=== PATIENT | female | born 1965 | race Caucasian/White ===

== ENCOUNTER 2017-03-27 12:36 | Inpatient (IN) ==
[2017-03-27 13:18] LABS: Bilirubin,Urine Negative (Negative); Blood,Urine Moderate (Negative); Clarity,Urine Turbid (Clear); Color,Urine Yellow (Yellow); Glucose,Urine (UA) Normal (Normal); Ketones,Urine Negative (Negative); Leukocyte Esterase,Urine Large (Negative); Nitrite,Urine Negative (Negative); Protein,Urine 30 mg/dL (Neg-Trace); Specific Gravity,Urine 1.015 (1.010-1.025); Urobilinogen,Urine Normal (Normal)
[2017-03-27 13:19] LABS: Bacteria,Urine Many per hpf (None-Few); Hyaline Casts,Urine Few per lpf (None-Few); Squamous Epithelial Cell,Urine Many per lpf (None-Few); WBC,Urine TNTC per hpf (0-3)
[2017-03-27 13:23] LABS: Basophils % 0.8 %; Immature Platelets 0.5 % (1.1-6.1)
[2017-03-27 13:25] LABS: Basophils # 0.1 K/mcL (0.0-0.2); Eosinophils # 0.4 K/mcL (0.0-0.6); Eosinophils % 4.2 %; Hematocrit 25.5 % (35.3-44.9); Immature Granulocytes % 1.7 % (0-4); Lymphocytes # 0.7 K/mcL (0.6-4.6); Lymphocytes % 8.8 %; Mean Corpuscular HGB Conc 27.8 g/dL (31.6-35.5); Mean Corpuscular Volume 104.1 fL (83.0-100.0); Mean Platelet Volume 8.8 fL (9.4-12.4); Monocytes # 0.5 K/mcL (0.0-1.3); Monocytes % 5.8 %; Neutrophils # 6.5 K/mcL (1.6-8.9); Nucleated Red Blood Cells 1.9 /100 WBC (0); Platelet Count 397 K/mcL (140-400); Red Blood Count 2.45 M/mcL (3.82-4.97); Red Cell Distribution Width 16.7 % (11.5-14.5); Segmented Neutrophils % 78.7 %
--- NOTE | 2017-03-27 13:31 | Emergency Department Note ---
Disposition Clinical Impression: Morbid obesity Chronic renal insufficiency Qualifiers: Chronic kidney disease stage: stage 5 Qualified Code(s): N18.5 - Chronic kidney disease, stage 5 [id number] kidney injury Qualifiers: Acute renal failure type: unspecified Chronic kidney disease stage: on chronic dialysis Qualified Code(s): N17.9 - Acute kidney failure, unspecified Disposition: Admitted As Inpatient Condition: Fair Time of Disposition: 15:02 General Adult HPI - General Chief complaint: ED General Medical Stated complaint: decreased kidney function Source: patient, family, EMS Mode of arrival: EMS Limitations: no limitations Nursing Notes Reviewed: Yes Vital Signs Reviewed: Yes - History of Present Illness HPI Narrative: 51-year-old female presents the ED on a vent and has a trach here for decreased urinary function and kidney function. Patient is a [facility] sent her here as they said that she needed emergent dialysis. Due to her kidney function not being functioning and also nonexistent. He said she has gained approximately 10 pounds in the past week. Patient states that she is not feeling well really she is very weak and not her normal self. He is not complaining of any chest pain or shortness of breath. She complain of any headaches or blurry vision. She is not complaining of back pain or neck pain. She is having normal bowel movements. She does not urinate very much and states she most likely normally needs a Isbell catheter when this happens. Patient states she is in stage V kidney failure. She is scheduled to have a fistula done towards the end of the month. Patient is having any other complaints including fever, nausea or vomiting. Pain Scale: 7 - Related Data Home Medications Medication Instructions Recorded Confirmed AcetaZOLAMIDE [Diamox] 250 mg PO DAILY 12/04/14 03/27/17 Acetaminophen [Tylenol] 500 mg PO Q6HR 12/04/14 03/27/17 Budesonide/Formoterol 160/4.5 2 puff IH BID 12/04/14 03/27/17 [Symbicort] Calcitriol [Rocaltrol] 0.25 mcg PO DAILY 12/04/14 03/27/17 Famotidine [Pepcid] 20 mg PO DAILY 12/04/14 03/27/17 Furosemide [Lasix] 80 mg PO BID 12/04/14 03/27/17 Gabapentin [Neurontin] 200 mg PO Q8H 12/04/14 03/27/17 Glimepiride [Amaryl] 4 mg PO DAILY 12/04/14 03/27/17 Ipratropium [ATROVENT Inhaler] 4 puff IH QID 12/04/14 03/27/17 Lactulose 30 gm PO DAILY 12/04/14 03/27/17 Levothyroxine [Synthroid] 200 mcg PO DAILY 12/04/14 03/27/17 Linagliptin [Tradjenta] 5 mg PO DAILY 12/04/14 03/27/17 Losartan [Cozaar] 25 mg PO DAILY 12/04/14 03/27/17 Nitroglycerin 0.4 mg SL AD PRN 12/04/14 03/27/17 OxyCODONE Immed Rel [Roxicodone 5 10 mg PO Q4HR PRN 12/04/14 03/27/17 MG] Pravastatin Sodium [Pravachol] 40 mg PO DAILY 12/04/14 03/27/17 Venlafaxine XR (24 HR) [Effexor XR] 112.5 mg PO DAILY 12/04/14 03/27/17 Zolpidem [Ambien] 10 mg PO HS 12/04/14 03/27/17 Artificial Tear Drops [Isopto 1 drop OP TID 12/25/14 03/27/17 Tears] Bisacodyl [Dulcolax] 10 mg PO DAILY PRN 12/25/14 03/27/17 Chlorhexidine Rinse 15 ml MM BID 12/25/14 03/27/17 Multivitamin/Iron/Folic Acid 1 each PO DAILY 12/25/14 03/27/17 [Centrum Complete Multivit Tab] guaiFENesin [Q-Tussin] 30 ml PO Q4H PRN 12/25/14 03/27/17 Allopurinol [Zyloprim 100 MG] 200 mg PO DAILY 03/27/17 03/27/17 Bethanechol Chloride [Urecholine] 25 mg PO Q8H 03/27/17 03/27/17 Calcifediol [Rayaldee] 30 mcg PO DAILY 03/27/17 03/27/17 Darbepoetin [Aranesp] 200 mcg SQ Q2W 03/27/17 03/27/17 Fenofibrate Nanocrystallized 160 mg PO DAILY 03/27/17 03/27/17 [Triglide] Insulin Glargine [Lantus] 20 unit SQ DAILY 03/27/17 03/27/17 Insulin LISPRO [HumaLOG] 5 - 12 units SQ TIDWM 03/27/17 03/27/17 Levothyroxine Sodium [Levoxyl] 25 mcg PO DAILY 03/27/17 03/27/17 Metoprolol Succinate 50 mg PO DAILY 03/27/17 03/27/17 Nitrofurantoin (BID) [Macrobid] 100 mg PO MOWEFR 03/27/17 03/27/17 Warfarin Sodium [Coumadin] 6 mg PO DAILY 03/27/17 03/27/17 Warfarin [Coumadin] 1 mg PO DAILY 03/27/17 03/27/17 Allergies Allergy/AdvReac Type Severity Reaction Status Date / Time albuterol Allergy Difficulty Verified 03/27/17 14:30 Breathing lisinopril Allergy Difficulty Verified 03/27/17 14:30 Breathing Sulfa (Sulfonamide Allergy Difficulty Verified 03/27/17 14:30 Antibiotics) Breathing Review of Systems: 10 point review of systems done and negative unless otherwise stated in history of present illness. All systems ED: reviewed and negative except as stated. Review of Systems: As Per HPI Past Medical History - Past Medical History Attestation: Yes The following information was validated with the patient. Medical history: Reports: diabetes, renal disease, GERD, hyperlipidemia, pulmonary embolus, thyroid disease, coronary artery disease, CHF, COPD Surgical history: Reports: other Psychiatric history: Reports: anxiety, depression [employer] history: Reports: dysfunctional uterine bleed - Social History Smoking Status: Never smoker Smokeless Tobacco Status: No Alcohol use: Reports: none Drug use: Reports: none Physical Exam - General Limitations: no limitations General appearance: alert - Head Head exam: atraumatic, normocephalic, normal inspection - Eye Eye exam: Present: normal appearance, PERRL, EOMI - ENT ENT exam: normal exam, normal oropharynx, mucous membranes moist, other ( Patient has tracheostomy in but is still verbal. There is no drainage or purulent drainage coming out of the tracheostomy.) - Neck Neck exam: Present: normal inspection, full ROM, trachea midline - Chest Chest inspection: Present: normal inspection, symmetric chest wall rise - Respiratory Respiratory exam: Present: normal lung sounds bilaterally - Cardiovascular Cardiovascular exam: Present: regular rate - Abdominal Exam Abdominal exam: Present: soft, Non-Tender. Absent: tenderness, distention, guarding, rebound, rigidity - Female Barrel Cutter present during exam: Yes (Techs doing the Isbell were chaperoning.) External Exam: Present: normal external exam (Examine patient while they placed a Isbell catheter and I was unable see any ulcers on the her bottom or near the labial region.) - Extremities Exam Extremities exam: Present: normal inspection, full ROM. Absent: tenderness, pedal edema - Expanded Lower Extremity Exam Neurovascular/Tendon exam: Present: normal capillary refill. Absent: pulse deficit, motor deficit, sensory deficit, tendon deficit - Back Exam Back exam: Present: normal inspection, full ROM. Absent: tenderness, CVA tenderness (R), CVA tenderness (L) - Neurological Exam Neurological exam: Present: alert, oriented X3 - Skin Skin exam: Present: warm, dry, intact, normal color Course Course Narrative: 51-year-old female presents to the emergency department with decreased kidney function. She has a tracheostomy. We will get chest x-ray as well as basic labs including CBC, BMP, lactate as well as urinalysis. We will place a Isbell due to patient's immobility and decreased urine functions and also can measure it. Patient is okay with this plan. Vital Signs Temperature 98.3 F 03/27/17 12:40 Pulse Rate 128 03/27/17 12:40 Respiratory Rate 20 03/27/17 12:40 Blood Pressure 136/80 03/27/17 12:40 O2 Sat by Pulse Oximetry 96 03/27/17 12:40 Temperature 98.3 F 03/27/17 12:40 Pulse Rate 102 03/27/17 16:04 Respiratory Rate 18 03/27/17 16:04 Blood Pressure 98/64 03/27/17 16:04 O2 Sat by Pulse Oximetry 94 03/27/17 16:04 Oxygen Delivery Oxygen Delivery Ventilator Medical Decision Making - [facility] Narrative Medical decision making narrative: 51-year-old female presents to the ED complaining of possible kidney failure she came from a [facility] she does have a tracheostomy and is on a fentanyl time. This is chronic for her. She does have chronic kidney disease she sees Dr. Leyva is her data keyer. They said that she has increased weighing approximately 10 pounds over the last week and has not been producing much urine. This is abnormal for her. Today we placed a Isbell due to patient's obesity and her unable to get out of bed and also so we can measure her urine output. We got basic labs BMP showed an elevation in her creatinine as well as slight anemia. The anemia is right around her normal at 7.1 hemoglobin. She did have decreased GFR. Her B1 was elevated as well. Patient's chest x-ray did show mild pleurodynia but she is not complaining of any shortness of breath this time. This is not the main issue. I spoke with the on-call data keyer for Dr. Leyva's group and it was Dr. Jaffe who agreed the patient does need to be dialyzed they said they will do it tomorrow. And asked to hold any antiplatelets. Including Plavix or aspirin if she is on them. This time I spoke with the hospitalist Dr. Freitas who agreed to admit the patient to their service. Patient is admitted in stable condition. Chest X-Ray 03/27/17 12:40 IMPRESSION: Mild pulmonary edema. D/ / Adam Casanova MD / Adam Casanova MD Interpreting Provider: Adam Casanova MD - Medical Records Medical records reviewed: Yes I reviewed the patient's medical records. - Lab Data Lab results reviewed: Yes I reviewed the patient's lab results. Result diagrams: 03/27/17 13:15 03/27/17 13:15 Lab Results 03/27/17 03/27/17 03/27/17 Range/Units 13:11 13:15 13:15 WBC 8.3 (4.3-11.1) K/mcL RBC 2.45 L (3.82-4.97) M/mcL Hgb 7.1 L (11.5-15.4) g/dL Hct 25.5 L (35.3-44.9) % MCV 104.1 H (83.0-100.0) fL MCH 29.0 (28.0-33.3) pg MCHC 27.8 L (31.6-35.5) g/dL RDW 16.7 H (11.5-14.5) % Plt Count 397 (140-400) K/mcL MPV 8.8 L (9.4-12.4) fL Immature Gran % 1.7 (0-4) % Seg Neutrophils % 78.7 % Lymphocytes % 8.8 % Monocytes % 5.8 % Eosinophils % 4.2 % Basophils % 0.8 % Neutrophils # 6.5 (1.6-8.9) K/mcL Lymphocytes # 0.7 (0.6-4.6) K/mcL Monocytes # 0.5 (0.0-1.3) K/mcL Eosinophils # 0.4 (0.0-0.6) K/mcL Basophils # 0.1 (0.0-0.2) K/mcL Nucleated RBCs/100 WBC 1.9 H (0) /100 WBC Platelet Estimate Increased H (Normal) Immature Plt Fraction 0.5 L (1.1-6.1) % Hypochromasia Present A (Not Present) Anisocytosis 1+ A (Not Present) Microcytosis Present A (Not Present) Sodium 138 (136-145) mEq/L Potassium 5.8 H (3.5-4.5) mEq/L Chloride 102 (98-109) mEq/L Carbon Dioxide 22 (19-29) mEq/L BUN 126 H (7-20) mg/dL Creatinine 5.60 H (0.57-1.11) mg/dL Est GFR ( Amer) 10 L (> 60) Est GFR (Non-Af Amer) 8 L (> 60) BUN/Creatinine Ratio 23 (6-26) Glucose 207 H (70-99) mg/dL Calculated Osmolality 333 H (280-300) Lactic Acid (0.5-2.2) mmol/L Calcium 8.3 L (8.6-10.8) mg/dL Troponin I (0-0.03) ng/mL Urine Color Yellow (Yellow) Urine Clarity Turbid A (Clear) Urine pH 6.0 (5.0-8.0) pH Units Ur Specific [place] 1.015 (1.010-1.025) Urine Protein 30 H (Neg-Trace) mg/dL Urine Glucose (UA) Normal (Normal) mg/dL Urine Ketones Negative (Negative) mg/dL Urine Blood Moderate H (Negative) Urine Nitrite Negative (Negative) Urine Bilirubin Negative (Negative) Urine Urobilinogen Normal (Normal) mg/dL Ur Leukocyte Esterase Large H (Negative) Urine Microscopic RBC 3-5 H (0-3) per hpf Urine Microscopic WBC TNTC H (0-3) per hpf Ur Squamous Epith Cells Many H (None-Few) per lpf Urine Bacteria Many H (None-Few) per hpf Hyaline Casts Few (None-Few) per lpf Ur Culture Indicated? YES A (NO) 03/27/17 03/27/17 Range/Units 13:15 13:15 WBC (4.3-11.1) K/mcL RBC (3.82-4.97) M/mcL Hgb (11.5-15.4) g/dL Hct (35.3-44.9) % MCV (83.0-100.0) fL MCH (28.0-33.3) pg MCHC (31.6-35.5) g/dL RDW (11.5-14.5) % Plt Count (140-400) K/mcL MPV (9.4-12.4) fL Immature Gran % (0-4) % Seg Neutrophils % % Lymphocytes % % Monocytes % % Eosinophils % % Basophils % % Neutrophils # (1.6-8.9) K/mcL Lymphocytes # (0.6-4.6) K/mcL Monocytes # (0.0-1.3) K/mcL Eosinophils # (0.0-0.6) K/mcL Basophils # (0.0-0.2) K/mcL Nucleated RBCs/100 WBC (0) /100 WBC Platelet Estimate (Normal) Immature Plt Fraction (1.1-6.1) % Hypochromasia (Not Present) Anisocytosis (Not Present) Microcytosis (Not Present) Sodium (136-145) mEq/L Potassium (3.5-4.5) mEq/L Chloride (98-109) mEq/L Carbon Dioxide (19-29) mEq/L BUN (7-20) mg/dL Creatinine (0.57-1.11) mg/dL Est GFR ( Amer) (> 60) Est GFR (Non-Af Amer) (> 60) BUN/Creatinine Ratio (6-26) Glucose (70-99) mg/dL Calculated Osmolality (280-300) Lactic Acid 0.8 (0.5-2.2) mmol/L Calcium (8.6-10.8) mg/dL Troponin I 0.01 (0-0.03) ng/mL Urine Color (Yellow) Urine Clarity (Clear) Urine pH (5.0-8.0) pH Units Ur Specific [place] (1.010-1.025) Urine Protein (Neg-Trace) mg/dL Urine Glucose (UA) (Normal) mg/dL Urine Ketones (Negative) mg/dL Urine Blood (Negative) Urine Nitrite (Negative) Urine Bilirubin (Negative) Urine Urobilinogen (Normal) mg/dL Ur Leukocyte Esterase (Negative) Urine Microscopic RBC (0-3) per hpf Urine Microscopic WBC (0-3) per hpf Ur Squamous Epith Cells (None-Few) per lpf Urine Bacteria (None-Few) per hpf Hyaline Casts (None-Few) per lpf Ur Culture Indicated? (NO) - Radiology Data Radiology results reviewed: Yes I reviewed the patient's radiology results. - EKG Data EKG #1 EKG attestation: Yes I reviewed and interpreted this EKG. EKG results narrative: EKG done at 1254 view by myself and attending shows atrial fibrillation at a rate of 1:15, QRS 87, QTC 374 with a normal axis. No acute ST changes. This is irregular rhythm. No acute T-wave abnormalities, no signs of any heart block , hypertrophy or heart strain, no signs of WPW/Brugada syndrome. This EKG is changed from previous EKG done 12/25/14 which does not show atrial fibrillation shows normal sinus rhythm with no acute changes. Attestation Statement - Attestation Attestation: I, Raj Hough, examined this patient and my medical decision-making was reviewed with the LIBRARY ASSOCIATE/PA/Advanced Practice Nurse/Resident Physician. I agree with the documented findings, disposition and treatment plan as described except to the extent set forth below. Patient sent from the extended care facility for further evaluation of acute renal failure. State patient has had significant increase in weight over the past week laboratory evaluation shows a significantly decreased renal functioning. Patient has apparently been mildly confused at home is able to answer questions well in the emergency department. Patient has possible urinary tract infection on urinalysis however we will wait for culture results before prescribing antibiotics. Resident spoke with the data keyer product support consultant. Patient will be admitted to the hospital for further care and evaluation and likely treatment with dialysis.
[2017-03-27 13:34] LABS: Hemoglobin 7.1 g/dL (11.5-15.4)
[2017-03-27 13:45] LABS: Calcium 8.3 mg/dL (8.6-10.8); Potassium 5.8 mEq/L (3.5-4.5)
[2017-03-27 13:52] LABS: Anisocytosis 1+ (Not Present); Hypochromasia Present (Not Present); Microcytosis Present (Not Present); Platelet Estimate Increased (Normal)
[2017-03-27] MEDS ORDERED: FLUARIX QUAD 2017-18 36MOS UP/PF 0.5 ML SYRINGE IM ONE (16:32)
[2017-03-27] MEDS ORDERED: Naloxone 0.4 MG/ML INJ IVP PRN (16:39)
[2017-03-27] MEDS ORDERED: Nitroglycerin 0.4 MG TAB.SUBL SL PRN (16:46)
[2017-03-27] MEDS ORDERED: Dextrose Gel 15 GM PO PRN ×2 (16:59)
[2017-03-27] MEDS ORDERED: *HR* Dextrose 50 % in Water (Syg) 50 ML SYRINGE IVP PRN (16:59)
[2017-03-27] MEDS ORDERED: D5% in Water 1,000 ML IVC PRN (16:59)
--- NOTE | 2017-03-27 17:28 | Internal Med History&Physical ---
Date of Encounter: 03/27/17 Time of Encounter: 17:25 Assessment and Plan (1) Qvqka-[id number]-[id number] kidney injury Current visit: Yes Status: Acute Patient has a history of C Lakia stage V she is being worked up for AV shunt placement- he has been experiencing weight gain as well as decreased urinary output. Lab work indicating hyperkalemia 5.8 today and creatinine of 5.6. Nephrology has been consultation per ER physician she will undergo dialysis in the a.m. Monitor intake output daily weights Avoid nephrotoxins Renal diet Monitor electrolytes Qualifiers: Acute renal failure type: unspecified Chronic kidney disease stage: on chronic dialysis Qualified Code(s): N17.9 - Acute kidney failure, unspecified ; N18.9 - Chronic kidney disease, unspecified; N18.9 - Chronic kidney disease, unspecified; Z99.2 - Dependence on renal dialysis; Z99.2 - Dependence on renal dialysis; Z99.2 - Dependence on renal dialysis; Z99.2 - Dependence on renal dialysis (2) Diabetes mellitus Current visit: No Status: Acute Accu-Cheks before meals at bedtime with sliding scale insulin will give half of basal tonight due to patient will be nothing by mouth Diabetic diet Qualifiers: Diabetes mellitus type: type 2 Diabetes mellitus complication status: with kidney complications Diabetes mellitus complication detail: with chronic kidney disease Diabetes mellitus 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 insulin use: with care home use Chronic kidney disease stage: stage 5, not on chronic dialysis Qualified Code( s): E11.22 - Type 2 diabetes mellitus with diabetic chronic kidney disease; N18.5 - Chronic kidney disease, stage 5; N18.5 - Chronic kidney disease, stage 5 ; N18.5 - Chronic kidney disease, stage 5; N18.5 - Chronic kidney disease, stage 5; Z79.4 - buttermaker helper (current) use of insulin; Z79.4 - group home (current ) use of insulin; Z79.4 - group home (current) use of insulin; Z79.4 - group home (current) use of insulin (3) COPD (chronic obstructive pulmonary disease) Current visit: No Status: Acute 1 we will continue with bronchodilators patient has tracheostomy and is ventilator dependent we will continue Qualifiers: COPD type: unspecified COPD Qualified Code(s): J44.9 - Chronic obstructive pulmonary disease, unspecified (4) Supratherapeutic INR Current visit: Yes Status: Acute Patient is on Coumadin for chronic atrial flutter INR today is 4.83 we will hold Coumadin tonight and give vitamin K 5 mg by mouth once (5) Atrial flutter, chronic Current visit: Yes Status: Acute Patient states she has chronic history of irregular heartbeat and on anticoagulation for this. We will continue with metoprolol for rate control-we will hold Coumadin tonight and give vitamin K 1 Continuous cardiac monitoring Continue to monitor INR daily (6) Hyperkalemia Current visit: Yes Status: Acute Patient's potassium was 5.8 secondary to AK I -there are no T-wave changes we will continue cardiac monitoring Continue to monitor potassium (7) DVT prophylaxis Current visit: No Status: Acute Patient is on Coumadin-foot pumps Internal Medicine - H&P: HPI Chief complaint: weakness Admitted From: Emergency Dept Plans for Post Hospital Care: Transfer Shelter Facility History of present illness: Ms. Denson is a 51 year old female past medical history of orbit obesity diabetes CKD V GERD hyperlipidemia thyroid disease coronary disease congestive heart failure COPD chronic tracheostomy and ventilator dependent, hypertension . Patient resides in an [facility]. Patient has not been feeling well she has been weak his gained approximately 10 pounds in the past week. She is being followed by nephrology and is scheduled to have a fistula completed toward the end of the month. She denies any shortness of breath fever or chills chest pain nausea or vomiting. She also has been experiencing decrease in urinary output however no other urinary symptoms. Upon arrival to the ER lab work did reveal hyperkalemia with potassium of 5.8 hemoglobin 7.1 which appears to be around her baseline chest x-ray did show some mild pulmonary edema. ER physician did speak with nephrology patient will be dialyzed in the a.m. Presently the patient is sitting up in bed, requesting something to eat she denies any chest pain or shortness of breath this time and does not appear to be in any respiratory distress. Past Med Surg Social Fam HX - Past Medical History Medical history: diabetes, renal disease, GERD, hyperlipidemia, pulmonary embolus, thyroid disease, coronary artery disease, CHF, COPD Psychiatric history: anxiety, depression - Past Surgical History Surgical History: other - Social History Smoking Status: Never smoker Smokeless Tobacco Status: No Alcohol use: none Drug use: none - Family History Mother Living Status: Still Living Hx Family Cardiac Disorders: Yes (Hypertension) Hx Family Endocrine Disorder: Yes (Diabetes) Internal Medicine - H&P: Meds AcetaZOLAMIDE [Diamox] 250 mg PO DAILY 12/04/14 [History] Acetaminophen [Tylenol] 500 mg PO Q6HR 12/04/14 [History] Budesonide/Formoterol 160/4.5 [Symbicort] 2 puff IH BID 12/04/14 [History] Calcitriol [Rocaltrol] 0.25 mcg PO DAILY 12/04/14 [History] Famotidine [Pepcid] 20 mg PO DAILY 12/04/14 [History] Furosemide [Lasix] 80 mg PO BID 12/04/14 [History] Gabapentin [Neurontin] 200 mg PO Q8H 12/04/14 [History] Glimepiride [Amaryl] 4 mg PO DAILY 12/04/14 [History] Ipratropium [ATROVENT Inhaler] 4 puff IH QID 12/04/14 [History] Lactulose 30 gm PO DAILY 12/04/14 [History] Levothyroxine [Synthroid] 200 mcg PO DAILY 12/04/14 [History] Linagliptin [Tradjenta] 5 mg PO DAILY 12/04/14 [History] Losartan [Cozaar] 25 mg PO DAILY 12/04/14 [History] Nitroglycerin 0.4 mg SL AD PRN 12/04/14 [History] OxyCODONE Immed Rel [Roxicodone 5 MG] 10 mg PO Q4HR PRN 12/04/14 [History] Pravastatin Sodium [Pravachol] 40 mg PO DAILY 12/04/14 [History] Venlafaxine XR (24 HR) [Effexor XR] 112.5 mg PO DAILY 12/04/14 [History] Zolpidem [Ambien] 10 mg PO HS 12/04/14 [History] Artificial Tear Drops [Isopto Tears] 1 drop OP TID 12/25/14 [History] Bisacodyl [Dulcolax] 10 mg PO DAILY PRN 12/25/14 [History] Chlorhexidine Rinse 15 ml MM BID 12/25/14 [History] Multivitamin/Iron/Folic Acid [Centrum Complete Multivit Tab] 1 each PO DAILY 12/31 [History] guaiFENesin [Q-Tussin] 30 ml PO Q4H PRN 12/25/14 [History] Allopurinol [Zyloprim 100 MG] 200 mg PO DAILY 03/27/17 [History] Bethanechol Chloride [Urecholine] 25 mg PO Q8H 03/27/17 [History] Calcifediol [Rayaldee] 30 mcg PO DAILY 03/27/17 [History] Darbepoetin [Aranesp] 200 mcg SQ Q2W 03/27/17 [History] Fenofibrate Nanocrystallized [Triglide] 160 mg PO DAILY 03/27/17 [History] Insulin Glargine [Lantus] 20 unit SQ DAILY 03/27/17 [History] Insulin LISPRO [HumaLOG] 5 - 12 units SQ TIDWM 03/27/17 [History] Levothyroxine Sodium [Levoxyl] 25 mcg PO DAILY 03/27/17 [History] Metoprolol Succinate 50 mg PO DAILY 03/27/17 [History] Nitrofurantoin (BID) [Macrobid] 100 mg PO MOWEFR 03/27/17 [History] Warfarin Sodium [Coumadin] 6 mg PO DAILY 03/27/17 [History] Warfarin [Coumadin] 1 mg PO DAILY 03/27/17 [History] 3 Allergy/AdvReac Type Severity Reaction Status Date / Time albuterol Allergy Difficulty Verified 03/27/17 14:30 Breathing lisinopril Allergy Difficulty Verified 03/27/17 14:30 Breathing Sulfa (Sulfonamide Allergy Difficulty Verified 03/27/17 14:30 Antibiotics) Breathing All Systems PM: A 10-system review of systems was performed and is negative for pertinent findings except as documented above in the HPI. - Constitutional Constitutional: no chills, no fever(s), no night sweats - EENT Eyes: no change in vision, no discharge, no pain, no photophobia Ears: no ear discharge, no ear pain, no tinnitus Nose, mouth and throat: no dysphagia, no nasal discharge, no neck pain, no sore throat - Cardiovascular Cardiovascular ROS IM: no chest pain, no diaphoresis, no dyspnea, no lightheadedness, no palpitations, no syncope - Respiratory Respiratory: no cough, no dyspnea, no wheezing, no excessive phlegm production - Gastrointestinal Gastrointestinal: abdominal pain - Genitourinary Genitourinary: no change in urinary stream, no dysuria, no flank pain, no hematuria - Musculoskeletal Musculoskeletal ROS IM: no numbness, no tingling - Integumentary Integumentary IM: no rash, no unusual bruising - Neurological Neurological ROS: no confusion, no convulsions, no focal weakness, no numbness, no tingling, no tremor(s) - Hematologic/Lymphatic Hematologic/Lymphatic: no easy bruising - Constitutional Vitals: Temp Pulse Resp BP Pulse Ox 98.3 F 102 18 98/64 94 03/27/17 12:40 03/27/17 16:04 03/27/17 16:04 03/27/17 16:04 03/27/17 16:04 General appearance: Present: A&O X 3, answers questions appropriately - Head Head exam: Present: atraumatic, normocephalic - Eye Eye exam: Present: PERRL, conjuntiva pink, sclera anicteric Pupils: Present: PERRL - Neck Neck exam general surgery: Present: supple, trachea midline. Absent: lymphadenopathy - Respiratory Respiratory exam: Present: rhonchi. Absent: accessory muscle use, rales, wheezes - Cardiovascular Cardiovascular exam: Present: distant heart sounds, irregular rhythm, +S1, +S2. Absent: diastolic murmur, gallop, rubs, systolic murmur - GI/Abdominal GI/Abdominal exam: Present: normal bowel sounds, soft, no peritoneal signs. Absent: distended, tenderness - Extremities Exam Extremities exam: Present: pedal edema, warm, radial pulses palpable and symmetrical. Absent: calf tenderness, cyanotic - Neurological Exam Neurological exam: Present: CN II-XII intact, oriented X3, no focal deficits. Absent: pronater drift, facial droop, speech deficit - Skin Skin exam: Present: dry, intact Internal Med - H&P Results - Labs CBC & Chem 7: 03/27/17 13:15 03/27/17 13:15 - Impressions Atrial flutter - Diagnostic Studies Other Images Additional comments: Chest X-Ray 03/27/17 12:40 IMPRESSION: Mild pulmonary edema. D/ / Adam Casanova MD / Adam Casanova MD Interpreting Provider: Adam Casanova MD
[2017-03-27 17:44] LABS: Activated Partial Thrombo Time 63.5 Seconds (26.0-36.0)
[2017-03-27 17:48] LABS: INR 4.8; Prothrombin Time 53.9 Seconds (9.4-12.1)
[2017-03-27] MEDS: Gabapentin 100 MG CAPSULE PO SCH ×2 (18:04→23:50)
[2017-03-27] MEDS: Insulin DETEMIR 100 UNIT/ML X5UNITS SQ SCH (18:04)
[2017-03-27] MEDS ORDERED: *HR* Phytonadione 5 MG TABLET PO ONE (18:26)
[2017-03-27] MEDS: Ipratropium 1 PUFF INHALER IH SCH ×2 (18:33→22:26)
[2017-03-27] MEDS: Insulin LISPRO 300 UNITS/3 ML VIAL SQ SCH (20:33)
[2017-03-27] MEDS: Chlorhexidine Rinse 15 ML MOUTHWASH MM SCH (20:38)
[2017-03-27] MEDS: Furosemide 40 MG TABLET PO SCH (20:38)
[2017-03-27] MEDS: Artificial Tears SOLN 15 ML BOTTLE OP SCH (20:39)
[2017-03-27] MEDS: Budesonide/Formoterol 160/4.5 MDI IH SCH (22:27)
[2017-03-28] MEDS: Ipratropium 1 PUFF INHALER IH SCH ×4 (04:00→22:03)
[2017-03-28 04:02] LABS: Hematocrit 22.2 % (35.3-44.9)
[2017-03-28 04:04] LABS: Basophils % 0.5 %; Eosinophils # 0.3 K/mcL (0.0-0.6); Eosinophils % 4.2 %; Hemoglobin 6.3 g/dL (11.5-15.4); Immature Granulocytes % 1.7 % (0-4); Lymphocytes # 0.6 K/mcL (0.6-4.6); Lymphocytes % 7.9 %; Mean Corpuscular HGB Conc 28.4 g/dL (31.6-35.5); Mean Corpuscular Hemoglobin 29.2 pg (28.0-33.3); Mean Corpuscular Volume 102.8 fL (83.0-100.0); Mean Platelet Volume 8.6 fL (9.4-12.4); Monocytes # 0.5 K/mcL (0.0-1.3); Monocytes % 5.9 %; Neutrophils # 6.4 K/mcL (1.6-8.9); Nucleated Red Blood Cells 2.4 /100 WBC (0); Platelet Count 290 K/mcL (140-400); Red Blood Count 2.16 M/mcL (3.82-4.97); Red Cell Distribution Width 16.3 % (11.5-14.5); Segmented Neutrophils % 79.8 %
[2017-03-28 04:13] LABS: INR 4.5; Prothrombin Time 49.9 Seconds (9.4-12.1)
[2017-03-28 04:19] LABS: Hypochromasia Present (Not Present); Platelet Estimate Normal (Normal)
[2017-03-28 04:20] LABS: Anisocytosis 1+ (Not Present); Polychromasia 1+ (Not Present)
[2017-03-28 04:25] LABS: Calcium 7.2 mg/dL (8.6-10.8)
[2017-03-28] MEDS ORDERED: *HR* Digoxin 0.5 MG/2 ML AMPUL IVP ONE (04:54)
[2017-03-28] MEDS: Levothyroxine 25 MCG TABLET PO SCH (08:01)
[2017-03-28] MEDS: Gabapentin 100 MG CAPSULE PO SCH ×2 (08:01→21:33)
[2017-03-28] MEDS: Fenofibrate 54 MG TABLET PO SCH (08:01)
[2017-03-28] MEDS: Famotidine 20 MG TABLET PO SCH (08:01)
[2017-03-28] MEDS: Chlorhexidine Rinse 15 ML MOUTHWASH MM SCH ×2 (08:01→21:33)
[2017-03-28] MEDS: Artificial Tears SOLN 15 ML BOTTLE OP SCH ×3 (08:02→21:32)
[2017-03-28] MEDS: Venlafaxine XR (24 HR) 37.5 MG CAP.ER.24H PO SCH (08:02)
[2017-03-28] MEDS: acetaZOLAMIDE 250 MG TABLET PO SCH (08:02)
[2017-03-28] MEDS: Acetaminophen 325 MG TABLET PO PRN ×2 (08:05→23:31)
[2017-03-28] MEDS: Insulin LISPRO 300 UNITS/3 ML VIAL SQ SCH ×4 (08:05→21:33)
[2017-03-28] MEDS: Furosemide 40 MG TABLET PO SCH ×2 (08:32→16:40)
[2017-03-28] MEDS: Metoprolol XL (24 HR) Succ 50 MG TAB.ER.24H PO SCH (08:32)
[2017-03-28] MEDS ORDERED: CALCIFEDIOL 30 MCG PO SCH (09:00)
[2017-03-28] MEDS ORDERED: Lactulose Oral Soln 20 GM/30 ML UDC PO SCH (09:00)
--- NOTE | 2017-03-28 10:54 | Internal Med Progress Note ---
<Nhung Tyson - Last Filed: 03/28/17 17:09> Date of Encounter: 03/28/17 Time of Encounter: 10:52 - Assessment and plan (1) Cvcfh-eh-igflyds kidney injury Current Visit: Yes Status: Acute Assessment and plan: Cr today 6.24, baseline around 3.8 Etiology unclear at this time, but patient has progressed to ESRD was scheduled to have AV fistula done outpatient Plan: 2 units FFP re check INR hold warfarin will consult IR tomorrow for placement of tem dialysis catheter Qualifiers: Acute renal failure type: unspecified Chronic kidney disease stage: on chronic dialysis Qualified Code(s): N17.9 - Acute kidney failure, unspecified ; N18.5 - Chronic kidney disease, stage 5; N18.5 - Chronic kidney disease, stage 5; N18.5 - Chronic kidney disease, stage 5; N18.5 - Chronic kidney disease , stage 5 (2) Supratherapeutic INR Current Visit: Yes Status: Acute Assessment and plan: INR today 4.5 Plan: hold coumadin 2 units FFP ordered. will re check INR and decrease in order to get temp dialysis catheter for dialysis tomorrow. (3) UTI (urinary tract infection) Current Visit: Yes Status: Acute Assessment and plan: urine culture positive for gram negative rods Plan: continue rocephin, day 1 Qualifiers: Urinary tract infection type: site unspecified Hematuria presence: without hematuria Qualified Code(s): N39.0 - Urinary tract infection, site not specified (4) Diabetes mellitus Current Visit: No Status: Acute Assessment and plan: continue basal with medium dose sliding scale/ACHS accuchecks. 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 insulin use: with custodial use Chronic kidney disease stage: stage 5, not on chronic dialysis Qualified Code( s): E11.22 - Type 2 diabetes mellitus with diabetic chronic kidney disease; N18.5 - Chronic kidney disease, stage 5; N18.5 - Chronic kidney disease, stage 5 ; N18.5 - Chronic kidney disease, stage 5; N18.5 - Chronic kidney disease, stage 5; Z79.4 - skilled nursing (current) use of insulin; Z79.4 - watermelon inspector (current ) use of insulin; Z79.4 - watermelon inspector (current) use of insulin; Z79.4 - skilled nursing (current) use of insulin (5) Anemia Current Visit: No Status: Acute Assessment and plan: Hg today 6.3 Plan: two units packed RBCs ordered will recheck H/H afterwards. Qualifiers: Anemia type: due to chronic kidney disease Chronic kidney disease stage: unspecified stage Qualified Code(s): N18.9 - Chronic kidney disease, unspecified; D63.1 - Anemia in chronic kidney disease; D63.1 - Anemia in chronic kidney disease (6) COPD (chronic obstructive pulmonary disease) Current Visit: No Status: Acute Assessment and plan: not in exacerbation. continue home meds. Qualifiers: COPD type: unspecified COPD Qualified Code(s): J44.9 - Chronic obstructive pulmonary disease, unspecified (7) Atrial flutter, chronic Current Visit: Yes Status: Acute Assessment and plan: continue metoprolol for rate control, with IV metoprolol PRN hold coumadin for supratherapeutic INR (8) Hyperkalemia Current Visit: Yes Status: Acute Assessment and plan: potassium today was 6 Plan: since patient did not receive HD today, will give 30mg kayexalate, will re check potassium after Bowel movement. if needed, will give more kayexalate to bring down potassium. (9) DVT prophylaxis Current Visit: No Status: Acute Assessment and plan: on coumadin at home-on hold for supratherapeutic INR - Subjective Interval history: 51F evaluated at bedside. patient was leaning over the bed at the foot of the bed. she states she does this because it helps her feel better. patient denies nausea, vomiting, diarrhea, chills, chest pain, shortness of breath. she admits to fevers. she denies any further problems today. - Constitutional Vitals: Temp Pulse Resp BP Pulse Ox 100.3 F H 132 19 101/40 98 03/28/17 07:12 03/28/17 07:12 03/28/17 07:12 03/28/17 07:12 03/28/17 05:29 General appearance: Present: A&O X 3, morbidly obese, pleasant, no acute distress, answers questions appropriately - Head Head exam: Present: atraumatic, normocephalic - Neck Neck exam general surgery: Present: supple Additional comments: tracheostomy in place - Respiratory Respiratory exam: Present: decreased breath sounds - Cardiovascular Cardiovascular exam: Present: RRR, +S1, +S2 - GI/Abdominal GI/Abdominal exam: Present: distended Additional comments: obese, minimal bowel sounds present. - Extremities Exam Additional comments: +2 bilateral lower extremity pitting edema. - Neurological Exam Neurological exam: Present: alert, oriented X3, no focal deficits - Psychiatric Psychiatric exam: Present: normal affect, normal mood Internal Medicine: Result - Labs CBC & Chem 7: 03/28/17 03:59 03/28/17 03:59 Labs: Short CBC 03/28/17 Range/Units 03:59 WBC 8.0 (4.3-11.1) K/mcL Hgb 6.3 L (11.5-15.4) g/dL Hct 22.2 L (35.3-44.9) % Plt Count 290 (140-400) K/mcL Neutrophils # 6.4 (1.6-8.9) K/mcL BMP 03/28/17 03:59 Sodium 138 Potassium 6.0 H Chloride 103 Carbon Dioxide 21 BUN 141 H Creatinine 6.24 H Glucose 144 H Calcium 7.2 L - ABG Interpretation ABG results: PT/INR, D-dimer PT 49.9 Seconds (9.4-12.1) H* 03/28/17 03:59 Consult Discharge Plan - Plan Referrals: Ender Hodge MD [Primary Care Provider] - <Sancho Rubio - Last Filed: 03/28/17 17:40> Date of Encounter: 03/28/17 - Assessment and plan (1) Hyperkalemia Current Visit: Yes Status: Acute (2) Rpyhk-nu-obqxaxx kidney injury Current Visit: Yes Status: Acute Qualifiers: Acute renal failure type: unspecified Chronic kidney disease stage: stage 5 , not on chronic dialysis Qualified Code(s): N17.9 - Acute kidney failure, unspecified; N18.5 - Chronic kidney disease, stage 5; N18.5 - Chronic kidney disease, stage 5; N18.5 - Chronic kidney disease, stage 5; N18.5 - Chronic kidney disease, stage 5 (3) Supratherapeutic INR Current Visit: Yes Status: Acute (4) UTI (urinary tract infection) Current Visit: Yes Status: Acute Qualifiers: Urinary tract infection type: acute cystitis Hematuria presence: without hematuria Qualified Code(s): N30.00 - Acute cystitis without hematuria (5) Anemia Current Visit: No Status: Acute Qualifiers: Anemia type: due to chronic kidney disease Chronic kidney disease stage: stage 5, not on chronic dialysis Qualified Code(s): N18.5 - Chronic kidney disease, stage 5; D63.1 - Anemia in chronic kidney disease; D63.1 - Anemia in chronic kidney disease (6) COPD (chronic obstructive pulmonary disease) Current Visit: No Status: Acute Qualifiers: COPD type: emphysema Emphysema type: other Qualified Code(s): J43.8 - Other emphysema (7) Diabetes mellitus Current Visit: No Status: Acute Qualifiers: Diabetes mellitus type: type 2 Diabetes mellitus complication status: with kidney complications Diabetes mellitus complication detail: with chronic kidney disease Diabetes mellitus custodial insulin use: with custodial use Chronic kidney disease stage: stage 5, not on chronic dialysis Qualified Code( s): E11.22 - Type 2 diabetes mellitus with diabetic chronic kidney disease; N18.5 - Chronic kidney disease, stage 5; N18.5 - Chronic kidney disease, stage 5 ; N18.5 - Chronic kidney disease, stage 5; N18.5 - Chronic kidney disease, stage 5; Z79.4 - skilled nursing (current) use of insulin; Z79.4 - skilled nursing (current ) use of insulin; Z79.4 - skilled nursing (current) use of insulin; Z79.4 - skilled nursing (current) use of insulin - Constitutional Vitals: Temp Pulse Resp BP Pulse Ox 99.3 F 122 18 97/34 98 03/28/17 16:17 03/28/17 16:17 03/28/17 16:35 03/28/17 16:35 03/28/17 16:35 Internal Medicine: Result - Labs CBC & Chem 7: 03/28/17 03:59 03/28/17 03:59 Labs: Short CBC 03/28/17 Range/Units 03:59 WBC 8.0 (4.3-11.1) K/mcL Hgb 6.3 L (11.5-15.4) g/dL Hct 22.2 L (35.3-44.9) % Plt Count 290 (140-400) K/mcL Neutrophils # 6.4 (1.6-8.9) K/mcL BMP 03/28/17 03:59 Sodium 138 Potassium 6.0 H Chloride 103 Carbon Dioxide 21 BUN 141 H Creatinine 6.24 H Glucose 144 H Calcium 7.2 L - ABG Interpretation ABG results: PT/INR, D-dimer PT 23.7 Seconds (9.4-12.1) H D 03/28/17 16:30 - Attending Attestation I examined this patient and my medical decision-making was reviewed with the Resident Physician on 03/28/17. I agree with the documented findings, disposition and treatment plan as described except to the extent set forth below. Ms Denson is currently admitted for hyperkalemia and ESRD requiring dialysis. She remains moderate to high risk due to potential for worsening cardiac and respiratory status. She has chronic tranch/vent. Ms Denson is having pain in her lower abdomen. She says she has had fevers. No CP or SOB worsened. Feels constipated as well. To receive Kayexalate for hyperkalemia. INR too high to get dialysis catheter today. Exam Alert. Obese. Moderate distress Mucus membranes dry Heart reg Lungs diminished Abd soft Edema present Trach in place I/P 1. Hyperkalemia- Kayexalate given and will follow and recheck. To have dialysis when catheter able to be placed. 2. ESRD - dialysis catheter to be placed when INR better 3. Increased INR - FFP given. 4. Chronic trach/vent 5. UTI - abx started. Further diagnoses and plan as above.
[2017-03-28] MEDS: Budesonide/Formoterol 160/4.5 MDI IH SCH ×2 (11:57→22:02)
--- NOTE | 2017-03-28 12:48 | Nephrology Consult Note ---
Date of Encounter: 03/28/17 Time of Encounter: 12:00 Assessment and Plan (1) End stage chronic kidney disease Current Visit: Yes Status: Acute Needs to initiate HD on this patient for the first time given persistent hyperkalemia and volume overload along with worsening renal function but awaiting correction of coagulopathy first (2) Hyperkalemia Current Visit: Yes Status: Resolved Can give kayexalate while awaiting HD Renal diet advised (3) Anemia Current Visit: Yes Status: Acute Hgb dropping to under 7 today. Transfusion parameters per primary team Needs workup with iron levels, et al. Qualifiers: Anemia type: iron deficiency Iron deficiency anemia type: chronic blood loss Qualified Code(s): D50.0 - Iron deficiency anemia secondary to blood loss (chronic) History of Present Illness - Reason for Consult Consult date: 03/28/17 Chronic Kidney Disease, hyperkalemia Requesting physician: Josh Leyva - History of Present Illness 51 y o mobidly obese female with PMH of stage 4/5 CKD, chronic resp failure with trach admitted overnight with progressive fluid gain and generalized weakness. She was found with worsening renal fxn with SCr at 5.6, GFR 8and elevated potassium at 5.8 along with anemia, hgb at 7.1. renal consulted for management. Pt seen and examined with complaint of constipation and back pain. Inr noted above 4 making HD access problematic, will await correction per primary team Past Med Surg Social Fam HX - Past Medical History Medical history: diabetes, renal disease, GERD, hyperlipidemia, pulmonary embolus, thyroid disease, coronary artery disease, CHF, COPD Psychiatric history: anxiety, depression - Past Surgical History Surgical History: other - Social History Smoking Status: Never smoker Smokeless Tobacco Status: No Alcohol use: none Drug use: none - Family History Mother Living Status: Still Living Hx Family Cardiac Disorders: Yes (Hypertension) Hx Family Endocrine Disorder: Yes (Diabetes) Medications and Allergies AcetaZOLAMIDE [Diamox] 250 mg PO DAILY 12/04/14 [History] Acetaminophen [Tylenol] 500 mg PO Q6HR 12/04/14 [History] Budesonide/Formoterol 160/4.5 [Symbicort] 2 puff IH BID 12/04/14 [History] Calcitriol [Rocaltrol] 0.25 mcg PO DAILY 12/04/14 [History] Famotidine [Pepcid] 20 mg PO DAILY 12/04/14 [History] Furosemide [Lasix] 80 mg PO BID 12/04/14 [History] Gabapentin [Neurontin] 200 mg PO Q8H 12/04/14 [History] Glimepiride [Amaryl] 4 mg PO DAILY 12/04/14 [History] Ipratropium [ATROVENT Inhaler] 4 puff IH QID 12/04/14 [History] Lactulose 30 gm PO DAILY 12/04/14 [History] Levothyroxine [Synthroid] 200 mcg PO DAILY 12/04/14 [History] Linagliptin [Tradjenta] 5 mg PO DAILY 12/04/14 [History] Losartan [Cozaar] 25 mg PO DAILY 12/04/14 [History] Nitroglycerin 0.4 mg SL AD PRN 12/04/14 [History] OxyCODONE Immed Rel [Roxicodone 5 MG] 10 mg PO Q4HR PRN 12/04/14 [History] Pravastatin Sodium [Pravachol] 40 mg PO DAILY 12/04/14 [History] Venlafaxine XR (24 HR) [Effexor XR] 112.5 mg PO DAILY 12/04/14 [History] Zolpidem [Ambien] 10 mg PO HS 12/04/14 [History] Artificial Tear Drops [Isopto Tears] 1 drop OP TID 12/25/14 [History] Bisacodyl [Dulcolax] 10 mg PO DAILY PRN 12/25/14 [History] Chlorhexidine Rinse 15 ml MM BID 12/25/14 [History] Multivitamin/Iron/Folic Acid [Centrum Complete Multivit Tab] 1 each PO DAILY 12/31 [History] guaiFENesin [Q-Tussin] 30 ml PO Q4H PRN 12/25/14 [History] Allopurinol [Zyloprim 100 MG] 200 mg PO DAILY 03/27/17 [History] Bethanechol Chloride [Urecholine] 25 mg PO Q8H 03/27/17 [History] Calcifediol [Rayaldee] 30 mcg PO DAILY 03/27/17 [History] Darbepoetin [Aranesp] 200 mcg SQ Q2W 03/27/17 [History] Fenofibrate Nanocrystallized [Triglide] 160 mg PO DAILY 03/27/17 [History] Insulin Glargine [Lantus] 20 unit SQ DAILY 03/27/17 [History] Insulin LISPRO [HumaLOG] 5 - 12 units SQ TIDWM 03/27/17 [History] Levothyroxine Sodium [Levoxyl] 25 mcg PO DAILY 03/27/17 [History] Metoprolol Succinate 50 mg PO DAILY 03/27/17 [History] Nitrofurantoin (BID) [Macrobid] 100 mg PO MOWEFR 03/27/17 [History] Warfarin Sodium [Coumadin] 6 mg PO DAILY 03/27/17 [History] Warfarin [Coumadin] 1 mg PO DAILY 03/27/17 [History] 3 Allergy/AdvReac Type Severity Reaction Status Date / Time albuterol Allergy Difficulty Verified 03/27/17 14:30 Breathing lisinopril Allergy Difficulty Verified 03/27/17 14:30 Breathing Sulfa (Sulfonamide Allergy Difficulty Verified 03/27/17 14:30 Antibiotics) Breathing Review of Systems All Systems: reviewed and no additional remarkable complaints except as stated ( 10 systems reviewed (pt answers to yes/no questions)) Exam - Vital Signs Vital signs: Initial Vital Signs Temp Pulse Resp BP Pulse Ox 98.3 F 128 20 136/80 96 03/27/17 12:40 03/27/17 12:40 03/27/17 12:40 03/27/17 12:40 03/27/17 12:40 Vital Signs - Last 8 Hours Temp Pulse Resp BP Pulse Ox 03/28/17 11:10 99.6 F 129 19 95/35 03/28/17 07:12 100.3 F H 132 19 101/40 03/28/17 05:42 99.7 F H 119/59 03/28/17 05:29 130 19 98 Intake and Output 03/27/17 03/28/17 03/28/17 23:59 07:59 15:59 Other: Meal npo Percent of Meal Consumed 0% Weight 238 kg Blood Glucose* 178 111 99 Patient Weight 03/28/17 23:59 Weight 238 kg - General Appearance General appearance: chronically ill EENT: ATNC, mucous membranes moist Neck: supple Additional Comments: +trach with vent Respiratory: course breath sounds Cardiology: edema (LE bilat), normal S1, normal S2 Gastrointestinal: no tenderness, no guarding, obese Integumentary: warm and dry Additional Comments: awake and answers questions appropriately Musculoskeletal: no deformities Psychiatric: cooperative Results - Lab Results 04/02/17 05:01 04/02/17 05:01 Most recent lab results Calcium 7.2 mg/dL (8.6-10.8) L 03/28/17 03:59 Magnesium 2.0 mg/dL (1.6-2.6) 03/28/17 03:59 Consult Discharge Plan - Plan Referrals: Ender Hodge MD [Primary Care Provider] - Chioma Ramos MD [Partnered Physician] - (SENT WEB REQUEST ON 03-31-17 @ [id number])
[2017-03-28] MEDS ORDERED: 0.9 % Sodium Chloride 250 ML ONE ×3 (13:01→18:42)
--- NOTE | 2017-03-28 15:26 | Electrocardiograph Report ---
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
--- NOTE | 2017-03-28 15:42 | Electrocardiograph Report ---
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
--- NOTE | 2017-03-28 15:55 | Electrocardiograph Report ---
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
[2017-03-28] MEDS ORDERED: cefTRIAXone 1,000 MG in Water for inj. (sterile) 10 ML IVP SCH (16:00)
[2017-03-28] MEDS ORDERED: *HR* Metoprolol 5 MG/5 ML VIAL IVP PRN (17:12)
[2017-03-28 17:19] LABS: INR 2.2; Prothrombin Time 23.7 Seconds (9.4-12.1)
[2017-03-28] MEDS: *HR* OxyCODONE Immed Rel 5 MG TABLET PO PRN (18:44)
[2017-03-28] MEDS: Insulin DETEMIR 100 UNIT/ML X5UNITS SQ SCH (21:33)
[2017-03-29] MEDS: *HR* Metoprolol 5 MG/5 ML VIAL IVP PRN ×2 (02:48→16:31)
[2017-03-29 03:28] LABS: Hepatitis B Surface Antibody 0.51 mIU/mL; Hepatitis B Surface Antigen Nonreactive (Nonreactive)
[2017-03-29] MEDS: Ipratropium 1 PUFF INHALER IH SCH ×4 (03:58→22:37)
[2017-03-29 04:33] LABS: Basophils # 0.1 K/mcL (0.0-0.2); Basophils % 0.7 %; Eosinophils # 0.3 K/mcL (0.0-0.6); Eosinophils % 3.8 %; Hematocrit 23.6 % (35.3-44.9); Immature Granulocytes % 1.7 % (0-4); Lymphocytes # 0.7 K/mcL (0.6-4.6); Lymphocytes % 8.2 %; Mean Corpuscular HGB Conc 29.7 g/dL (31.6-35.5); Mean Corpuscular Hemoglobin 29.3 pg (28.0-33.3); Mean Corpuscular Volume 98.7 fL (83.0-100.0); Mean Platelet Volume 8.5 fL (9.4-12.4); Monocytes # 0.7 K/mcL (0.0-1.3); Monocytes % 7.7 %; Neutrophils # 6.8 K/mcL (1.6-8.9); Nucleated Red Blood Cells 2.4 /100 WBC (0); Platelet Count 268 K/mcL (140-400); Red Blood Count 2.39 M/mcL (3.82-4.97); Segmented Neutrophils % 77.9 %
[2017-03-29 04:38] LABS: INR 1.9; Prothrombin Time 20.7 Seconds (9.4-12.1)
[2017-03-29 05:03] LABS: Calcium 6.8 mg/dL (8.6-10.8); Potassium 5.4 mEq/L (3.5-4.5)
[2017-03-29] MEDS: Levothyroxine 25 MCG TABLET PO SCH (06:42)
--- NOTE | 2017-03-29 07:47 | Internal Med Progress Note ---
<Nhung Tyson - Last Filed: 03/29/17 07:44> Date of Encounter: 03/29/17 Time of Encounter: 07:44 - Assessment and plan (1) Sepsis Current Visit: Yes Status: Acute Assessment and plan: low grade fevers, tachycardia, hypotension, tachypnea normal WBC source of infection likely UTI, but will complete sepsis workup prelim blood cultures no growth Plan: lactic acid pending CXR pending changed rocephin dose to 2g daily 500cc bolus normal saline Qualifiers: Sepsis type: Escherichia coli Qualified Code(s): A41.51 - Sepsis due to Escherichia coli [E. coli] (2) Xqpmf-td-oxagjha kidney injury Current Visit: Yes Status: Acute Assessment and plan: Cr today 6.76, baseline around 3.8 Etiology unclear at this time, but patient has progressed to ESRD was scheduled to have AV fistula done outpatient Plan: consult to IR for placement of temporary HD catheter today. appreciate nephro recs Qualifiers: Acute renal failure type: unspecified Chronic kidney disease stage: stage 5 , not on chronic dialysis Qualified Code(s): N17.9 - Acute kidney failure, unspecified; N18.9 - Chronic kidney disease, unspecified; N18.9 - Chronic kidney disease, unspecified; Z99.2 - Dependence on renal dialysis; Z99.2 - Dependence on renal dialysis; Z99.2 - Dependence on renal dialysis; Z99.2 - Dependence on renal dialysis (3) Supratherapeutic INR Current Visit: Yes Status: Resolved Assessment and plan: resolved. pharmacy will dose coumadin after placement of temporary HD catheter (4) UTI (urinary tract infection) Current Visit: Yes Status: Acute Assessment and plan: urine culture positive for E.Coli, pansensitive Plan: continue rocephin, day 2 Qualifiers: Urinary tract infection type: acute cystitis Hematuria presence: without hematuria Qualified Code(s): N30.00 - Acute cystitis without hematuria (5) Diabetes mellitus Current Visit: No Status: Acute Assessment and plan: continue basal with medium dose sliding scale/ACHS accuchecks. 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 use Chronic kidney disease stage: stage 5, not on chronic dialysis Qualified Code( s): E11.22 - Type 2 diabetes mellitus with diabetic chronic kidney disease; N18.6 - End stage renal disease; N18.6 - End stage renal disease; N18.6 - End stage renal disease; N18.6 - End stage renal disease; Z79.4 - information services consultant (current ) use of insulin; Z79.4 - correction (current) use of insulin; Z79.4 - information services consultant (current) use of insulin; Z79.4 - correction (current) use of insulin; Z99.2 - Dependence on renal dialysis; Z99.2 - Dependence on renal dialysis; Z99.2 - Dependence on renal dialysis; Z99.2 - Dependence on renal dialysis (6) Anemia Current Visit: No Status: Acute Assessment and plan: Hg today 7 did not increase appropriately after two units blood yesterday. Plan: another two units blood ordered to be given during dialysis today iron, folate, B12 ferritin pending stool guiac pending. Qualifiers: Anemia type: due to chronic kidney disease Chronic kidney disease stage: stage 5, not on chronic dialysis Qualified Code(s): N18.5 - Chronic kidney disease, stage 5; D63.1 - Anemia in chronic kidney disease; D63.1 - Anemia in chronic kidney disease; Z99.2 - Dependence on renal dialysis; Z99.2 - Dependence on renal dialysis; Z99.2 - Dependence on renal dialysis; Z99.2 - Dependence on renal dialysis (7) COPD (chronic obstructive pulmonary disease) Current Visit: No Status: Acute Assessment and plan: not in exacerbation. continue home meds. Qualifiers: COPD type: emphysema Emphysema type: other Qualified Code(s): J43.8 - Other emphysema (8) Atrial flutter, chronic Current Visit: Yes Status: Acute Assessment and plan: continue metoprolol for rate control, with IV metoprolol PRN pharmacy to dose coumadin (9) Hyperkalemia Current Visit: Yes Status: Resolved Assessment and plan: resolved after getting kayexalate (10) DVT prophylaxis Current Visit: No Status: Acute Assessment and plan: on coumadin- pharmacy to dose after placement of HD catheter today. - Subjective Interval history: 51F evaluated at bedside. patient was laying in bed sleeping, in no acute distress. she denies nausea, vomiting, fever, chills, chest pain. - Constitutional Vitals: Temp Pulse Resp BP Pulse Ox 100.0 F H 138 30 87/52 99 03/29/17 03:40 03/29/17 04:21 03/29/17 04:21 03/29/17 03:40 03/29/17 04:21 General appearance: Present: A&O X 3, morbidly obese, pleasant, no acute distress, answers questions appropriately - Head Head exam: Present: atraumatic, normocephalic - Neck Additional comments: tracheostomy in place - Respiratory Respiratory exam: Present: rhonchi - Cardiovascular Cardiovascular exam: Present: distant heart sounds, tachycardia - GI/Abdominal GI/Abdominal exam: Present: diminished bowel sounds, distended Additional comments: soft, distended, obese - Extremities Exam Additional comments: +1 bilateral lower extremity pitting edema. - Neurological Exam Neurological exam: Present: alert, oriented X3 - Psychiatric Psychiatric exam: Present: normal affect, normal mood - Skin Skin exam: Present: intact Internal Medicine: Result - Labs CBC & Chem 7: 03/29/17 04:25 03/29/17 04:25 Labs: Short CBC 03/29/17 Range/Units 04:25 WBC 8.7 (4.3-11.1) K/mcL Hgb 7.0 L (11.5-15.4) g/dL Hct 23.6 L (35.3-44.9) % Plt Count 268 (140-400) K/mcL Neutrophils # 6.8 (1.6-8.9) K/mcL BMP 03/29/17 04:25 Sodium 140 Potassium 5.4 H Chloride 103 Carbon Dioxide 19 BUN 140 H Creatinine 6.76 H Glucose 103 H Calcium 6.8 L - ABG Interpretation ABG results: PT/INR, D-dimer PT 20.7 Seconds (9.4-12.1) H 03/29/17 04:25 Consult Discharge Plan - Plan Referrals: Ender Hodge MD [Primary Care Provider] - <Sancho Rubio - Last Filed: 03/29/17 13:15> Date of Encounter: 03/29/17 - Assessment and plan (1) UTI (urinary tract infection) Current Visit: Yes Status: Acute Qualifiers: Urinary tract infection type: acute cystitis Hematuria presence: without hematuria Qualified Code(s): N30.00 - Acute cystitis without hematuria (2) Hyperkalemia Current Visit: Yes Status: Resolved (3) Zhwxk-ym-gxmhtnu kidney injury Current Visit: Yes Status: Acute Qualifiers: Acute renal failure type: unspecified Chronic kidney disease stage: on chronic dialysis Qualified Code(s): N17.9 - Acute kidney failure, unspecified ; N18.9 - Chronic kidney disease, unspecified; N18.9 - Chronic kidney disease, unspecified; Z99.2 - Dependence on renal dialysis; Z99.2 - Dependence on renal dialysis; Z99.2 - Dependence on renal dialysis; Z99.2 - Dependence on renal dialysis (4) Supratherapeutic INR Current Visit: Yes Status: Resolved (5) Anemia Current Visit: No Status: Acute Qualifiers: Anemia type: due to chronic kidney disease Chronic kidney disease stage: on chronic dialysis Qualified Code(s): N18.6 - End stage renal disease; D63.1 - Anemia in chronic kidney disease; D63.1 - Anemia in chronic kidney disease; Z99.2 - Dependence on renal dialysis; Z99.2 - Dependence on renal dialysis; Z99.2 - Dependence on renal dialysis; Z99.2 - Dependence on renal dialysis (6) COPD (chronic obstructive pulmonary disease) Current Visit: No Status: Acute Qualifiers: COPD type: emphysema Emphysema type: other Qualified Code(s): J43.8 - Other emphysema (7) Diabetes mellitus Current Visit: No Status: Acute Qualifiers: Diabetes mellitus type: type 2 Diabetes mellitus complication status: with kidney complications Diabetes mellitus complication detail: with chronic kidney disease Diabetes mellitus produce department supervisor insulin use: with correction use Chronic kidney disease stage: on chronic dialysis Qualified Code(s): E11.22 - Type 2 diabetes mellitus with diabetic chronic kidney disease; N18.6 - End stage renal disease; N18.6 - End stage renal disease; N18.6 - End stage renal disease; N18.6 - End stage renal disease; Z79.4 - correction (current) use of insulin; Z79.4 - information services consultant (current) use of insulin; Z79.4 - correction (current ) use of insulin; Z79.4 - information services consultant (current) use of insulin; Z99.2 - Dependence on renal dialysis; Z99.2 - Dependence on renal dialysis; Z99.2 - Dependence on renal dialysis; Z99.2 - Dependence on renal dialysis (8) Chronic diastolic heart failure Current Visit: Yes Status: Chronic (9) Morbid obesity Current Visit: Yes Status: Chronic - Constitutional Vitals: Temp Pulse Resp BP Pulse Ox 99.2 F 97 20 129/66 97 03/29/17 12:15 03/29/17 12:15 03/29/17 12:15 03/29/17 12:15 03/29/17 07:46 Internal Medicine: Result - Labs CBC & Chem 7: 03/29/17 04:25 03/29/17 04:25 Labs: Short CBC 03/29/17 Range/Units 04:25 WBC 8.7 (4.3-11.1) K/mcL Hgb 7.0 L (11.5-15.4) g/dL Hct 23.6 L (35.3-44.9) % Plt Count 268 (140-400) K/mcL Neutrophils # 6.8 (1.6-8.9) K/mcL BMP 03/29/17 04:25 Sodium 140 Potassium 5.4 H Chloride 103 Carbon Dioxide 19 BUN 140 H Creatinine 6.76 H Glucose 103 H Calcium 6.8 L - ABG Interpretation ABG results: PT/INR, D-dimer PT 20.7 Seconds (9.4-12.1) H 03/29/17 04:25 - Impressions Impressions KUB X-Ray 03/29/17 09:13 IMPRESSION: The distal end of the newly placed temporary hemodialysis catheter is at the junction of the right common iliac vein and IVC. D/ / Kamari Waldrop MD / Kamari Waldrop MD Interpreting Provider: Kamari Waldrop MD - Attending Attestation I examined this patient and my medical decision-making was reviewed with the Resident Physician on 03/29/17. I agree with the documented findings, disposition and treatment plan as described except to the extent set forth below. Ms Denson has been admitted for hyperkalemia and ESRD. She is chronic trach/ vent She remains moderate to high risk due to potential for worsening clinical status. Ms Denson had dialysis catheter today and started dialysis. She denies new issues. On IV abx for UTI. No CP noted. Potassium seems better today. Exam Alert. Comfortable Mucus membranes dry Heart reg - not tachy at this time Lungs diminished Abd soft I/P 1. Hyperkalemia - improving post Kayexalate. Dialysis to start today. 2. Chronic diastolic heart failure 3. ESRD Further diagnoses and plan as above
[2017-03-29] MEDS ORDERED: 0.9 % Sodium Chloride 500 ML IVC ONE (07:56)
[2017-03-29] MEDS: Insulin LISPRO 300 UNITS/3 ML VIAL SQ SCH ×4 (08:01→20:26)
[2017-03-29] MEDS: Furosemide 40 MG TABLET PO SCH (08:02)
[2017-03-29] MEDS: Venlafaxine XR (24 HR) 37.5 MG CAP.ER.24H PO SCH (08:02)
[2017-03-29] MEDS: Gabapentin 100 MG CAPSULE PO SCH ×2 (08:02→20:16)
[2017-03-29] MEDS: Metoprolol XL (24 HR) Succ 50 MG TAB.ER.24H PO SCH (08:02)
[2017-03-29] MEDS: Famotidine 20 MG TABLET PO SCH (08:02)
[2017-03-29] MEDS: acetaZOLAMIDE 250 MG TABLET PO SCH (08:02)
[2017-03-29] MEDS: Chlorhexidine Rinse 15 ML MOUTHWASH MM SCH ×2 (08:03→20:17)
[2017-03-29] MEDS: Fenofibrate 54 MG TABLET PO SCH (08:03)
[2017-03-29] MEDS: Artificial Tears SOLN 15 ML BOTTLE OP SCH ×3 (08:04→20:17)
[2017-03-29] MEDS ORDERED: 0.9 % Sodium Chloride 250 ML IVC PRN (08:11)
[2017-03-29] MEDS ORDERED: *HR* Heparin 10,000 UNIT/10 ML VIAL IV PRN (08:11)
[2017-03-29] MEDS ORDERED: 0.9 % Sodium Chloride 1,000 ML PRIME SCH (08:15)
[2017-03-29] MEDS ORDERED: *HR* Heparin 5,000 UNIT/ML VIAL ONE (08:57)
[2017-03-29] MEDS: Budesonide/Formoterol 160/4.5 MDI IH SCH ×2 (10:45→22:37)
[2017-03-29] MEDS: *HR* OxyCODONE Immed Rel 5 MG TABLET PO PRN (12:30)
[2017-03-29] MEDS ORDERED: 0.9 % Sodium Chloride 2,000 ML ONE (12:50)
[2017-03-29] MEDS: Nystatin POWDER 30 GM BOTTLE TP SCH ×3 (14:51→20:17)
[2017-03-29] MEDS: cefTRIAXone 2,000 MG in Water for inj. (sterile) 20 ML IVP SCH (14:59)
[2017-03-29 16:26] LABS: Hematocrit 25.9 % (35.3-44.9); Hemoglobin 7.7 g/dL (11.5-15.4)
--- NOTE | 2017-03-29 16:46 | Nephrology Progress Note ---
Date of Encounter: 03/29/17 Time of Encounter: 11:45 - Assessment and Plan (1) End stage chronic kidney disease Current Visit: Yes Status: Acute Will start HD for 2 hours today with minimal UF goal of 0-1kg as tolerated Will plan second treatment tomorrow Permcath needed as well for meterman HD Outpatinet HD placement problematic given trach with vent and morbid obesity, discussed with director of social services (2) Hyperkalemia Current Visit: Yes Status: Resolved Resolving after kayexalate, Should improve more with HD Renal diet advised (3) Anemia Current Visit: No Status: Acute Hgb improved to 7.7 after transfusion pRBCs, will monitor Qualifiers: Anemia type: due to chronic kidney disease Chronic kidney disease stage: on chronic dialysis Qualified Code(s): N18.6 - End stage renal disease; D63.1 - Anemia in chronic kidney disease; D63.1 - Anemia in chronic kidney disease; Z99.2 - Dependence on renal dialysis; Z99.2 - Dependence on renal dialysis; Z99.2 - Dependence on renal dialysis; Z99.2 - Dependence on renal dialysis Subjective Interval history: Pt seen and examined on HD after temp femoral HD line placed by IR Objective - Vital Signs Vital signs: Vital Signs Temp Pulse Resp BP Pulse Ox 03/29/17 16:14 97.9 F 118 13 116/47 99 03/29/17 15:16 20 131/63 97 03/29/17 13:10 99.2 F 19 130/37 03/29/17 13:00 104/45 03/29/17 12:30 126/57 03/29/17 12:15 99.2 F 97 20 129/66 03/29/17 12:03 99.2 F 117 20 122/57 03/29/17 12:00 116/42 03/29/17 11:48 98.9 F 120 16 129/59 03/29/17 11:40 98.9 F 123 19 149/49 03/29/17 11:30 128/42 03/29/17 11:20 98.2 F 127 16 114/44 03/29/17 11:05 97.7 F 127 21 145/54 03/29/17 11:00 97.7 F 20 120/68 03/29/17 07:47 20 97 03/29/17 07:46 97.8 F 125 12 131/63 97 03/29/17 04:21 138 30 99 03/29/17 04:00 30 99 03/29/17 03:40 100.0 F H 137 24 87/52 97 03/29/17 02:45 110/62 03/29/17 00:31 136 28 97 03/29/17 00:20 28 97 03/28/17 23:46 99.0 F 03/28/17 23:05 99 F 136 16 95/74 35 03/28/17 22:50 99.7 F H 134 16 105/63 03/28/17 22:43 99.5 F 133 19 105/57 98 03/28/17 22:18 99.7 F H 132 16 105/57 98 03/28/17 22:07 20 100/62 98 03/28/17 21:25 132 20 98 03/28/17 20:38 23 100/62 98 03/28/17 19:44 99.7 F H 133 16 104/62 98 03/28/17 19:29 99.7 F H 131 16 100/62 03/28/17 19:20 99.7 F H 134 16 102/44 Intake and Output 03/29/17 03/29/17 03/29/17 07:59 15:59 23:59 Intake Total 310 / 310 2000 / 2000 Output Total 50 / 50 2500 / 2500 Balance 260 / 260 -500 / -500 Intake: Oral 0 / 0 Blood Product 310 / 310 1400 / 1400 Rbcs Leuko Poor As-1 Unit 700 / 700 [id number] Rbcs Leuko Poor As-1 Unit 700 / 700 [id number] Rbcs Leuko Poor As-3 Ph Unit 310 / 310 [id number] Intake, Rinseback and Flushes 600 / 600 Output: Urine 0 / 0 Total Dialysis (HD) Output 2300 / 2300 Catheter 50 / 50 200 / 200 Other: Meal Lunch Weight 237.4 kg Blood Glucose* 99 90 68 Hemodialysis Net Fluid Removed 1000 (mL) Patient Weight 03/29/17 23:59 Weight 237.4 kg - General Appearance General appearance: Present: obese, chronically ill EENT: Present: ATNC, mucous membranes moist Neck: Present: no JVD, supple Additional Comments: +trach on vent Respiratory: Present: course breath sounds Cardiology: Present: edema (LE bilat), normal S1, normal S2 Dialysis Vascular Access: Venous Catheter (temp, femoral) Gastrointestinal: Present: no tenderness, no guarding, obese Integumentary: Present: warm and dry Neurologic: Present: no focal deficit Musculoskeletal: Present: no deformities Psychiatric: Present: cooperative - Lab 03/29/17 16:13 03/29/17 04:25 Most recent lab results Calcium 6.8 mg/dL (8.6-10.8) L 03/29/17 04:25 Phosphorus 6.7 mg/dL (2.3-4.7) H 03/29/17 12:53 Magnesium 2.0 mg/dL (1.6-2.6) 03/28/17 03:59 Consult Discharge Plan - Plan Referrals: Ender Hodge MD [Primary Care Provider] -
[2017-03-29] MEDS ORDERED: Warfarin perPT PO PRN (18:00)
[2017-03-29] MEDS: Insulin DETEMIR 100 UNIT/ML X5UNITS SQ SCH (20:26)
[2017-03-30] MEDS: Levothyroxine 25 MCG TABLET PO SCH (05:45)
[2017-03-30] MEDS: Ipratropium 1 PUFF INHALER IH SCH ×3 (06:17→15:55)
[2017-03-30 06:51] LABS: Basophils % 0.6 %; Eosinophils # 0.4 K/mcL (0.0-0.6); Eosinophils % 5.3 %; Hematocrit 24.5 % (35.3-44.9); Hemoglobin 7.2 g/dL (11.5-15.4); Immature Granulocytes % 1.4 % (0-4); Lymphocytes # 0.9 K/mcL (0.6-4.6); Lymphocytes % 12.1 %; Mean Corpuscular HGB Conc 29.4 g/dL (31.6-35.5); Mean Corpuscular Hemoglobin 28.7 pg (28.0-33.3); Mean Corpuscular Volume 97.6 fL (83.0-100.0); Monocytes # 0.6 K/mcL (0.0-1.3); Monocytes % 7.8 %; Neutrophils # 5.1 K/mcL (1.6-8.9); Nucleated Red Blood Cells 1.6 /100 WBC (0); Platelet Count 251 K/mcL (140-400); Red Blood Count 2.51 M/mcL (3.82-4.97); Segmented Neutrophils % 72.8 %
[2017-03-30 07:01] LABS: INR 1.9; Prothrombin Time 20.5 Seconds (9.4-12.1)
[2017-03-30 07:02] LABS: Calcium 6.6 mg/dL (8.6-10.8); Potassium 4.5 mEq/L (3.5-4.5)
[2017-03-30] MEDS ORDERED: 0.9 % Sodium Chloride 250 ML IVC PRN (07:51)
[2017-03-30] MEDS ORDERED: *HR* Heparin 10,000 UNIT/10 ML VIAL IV PRN (07:51)
[2017-03-30] MEDS: Insulin LISPRO 300 UNITS/3 ML VIAL SQ SCH ×4 (08:45→20:54)
[2017-03-30] MEDS: *HR* OxyCODONE Immed Rel 5 MG TABLET PO PRN ×2 (08:49→16:23)
--- NOTE | 2017-03-30 08:50 | Internal Med Progress Note ---
<Nhung Tyson - Last Filed: 03/30/17 08:47> Date of Encounter: 03/30/17 Time of Encounter: 08:49 - Assessment and plan (1) Sepsis Current Visit: Yes Status: Resolved Assessment and plan: low grade fevers, tachycardia, hypotension, tachypnea normal WBC source of infection likely UTI, but will complete sepsis workup prelim blood cultures no growth lactic acid 1.3 Plan: continue rocephin day 3 Qualifiers: Sepsis type: Escherichia coli Qualified Code(s): A41.51 - Sepsis due to Escherichia coli [E. coli] (2) Ikduv-cg-affosdh kidney injury Current Visit: Yes Status: Acute Assessment and plan: Cr today 6.76, baseline around 3.8 Etiology unclear at this time, but patient has progressed to ESRD was scheduled to have AV fistula done outpatient Plan: appreciate nephro recs dialysis per nephro placement of permacath tomorrow by IR after INR is 1.5 or less hold coumadin Qualifiers: Acute renal failure type: unspecified Chronic kidney disease stage: on chronic dialysis Qualified Code(s): N17.9 - Acute kidney failure, unspecified ; N18.9 - Chronic kidney disease, unspecified; N18.9 - Chronic kidney disease, unspecified; Z99.2 - Dependence on renal dialysis; Z99.2 - Dependence on renal dialysis; Z99.2 - Dependence on renal dialysis; Z99.2 - Dependence on renal dialysis (3) Anemia Current Visit: No Status: Acute Assessment and plan: Hg today 7.2 s/p transfusion of 4 units prbc suspect GI bleed. Plan: iron, folate, B12 ferritin pending stool guiac pending. NPO IV PPI BID consult to GI for endoscopy Qualifiers: Anemia type: due to chronic kidney disease Chronic kidney disease stage: on chronic dialysis Qualified Code(s): N18.6 - End stage renal disease; D63.1 - Anemia in chronic kidney disease; D63.1 - Anemia in chronic kidney disease; Z99.2 - Dependence on renal dialysis; Z99.2 - Dependence on renal dialysis; Z99.2 - Dependence on renal dialysis; Z99.2 - Dependence on renal dialysis (4) Supratherapeutic INR Current Visit: Yes Status: Resolved Assessment and plan: resolved. pharmacy will dose coumadin after placement of permacath. continue to hold coumadin (5) UTI (urinary tract infection) Current Visit: Yes Status: Acute Assessment and plan: urine culture positive for E.Coli, pansensitive Plan: continue rocephin, day 3 Qualifiers: Urinary tract infection type: acute cystitis Hematuria presence: without hematuria Qualified Code(s): N30.00 - Acute cystitis without hematuria (6) Diabetes mellitus Current Visit: No Status: Acute Assessment and plan: continue basal with medium dose sliding scale/ACHS accuchecks. Qualifiers: Diabetes mellitus type: type 2 Diabetes mellitus complication status: with kidney complications Diabetes mellitus complication detail: with chronic kidney disease Diabetes mellitus termite control technician insulin use: with termite control technician use Chronic kidney disease stage: on chronic dialysis Qualified Code(s): E11.22 - Type 2 diabetes mellitus with diabetic chronic kidney disease; N18.6 - End stage renal disease; Z99.2 - Dependence on renal dialysis; Z99.2 - Dependence on renal dialysis; Z99.2 - Dependence on renal dialysis; N18.6 - End stage renal disease; N18.6 - End stage renal disease; N18.6 - End stage renal disease ; Z79.4 - detention (current) use of insulin; Z79.4 - keno terminal operator (current) use of insulin; Z79.4 - keno terminal operator (current) use of insulin; Z79.4 - detention ( current) use of insulin; Z99.2 - Dependence on renal dialysis (7) COPD (chronic obstructive pulmonary disease) Current Visit: No Status: Acute Assessment and plan: not in exacerbation. continue home meds. Qualifiers: COPD type: emphysema Emphysema type: other Qualified Code(s): J43.8 - Other emphysema (8) Atrial flutter, chronic Current Visit: Yes Status: Acute Assessment and plan: continue metoprolol for rate control, with IV metoprolol PRN hold coumadin (9) Hyperkalemia Current Visit: Yes Status: Resolved Assessment and plan: resolved (10) DVT prophylaxis Current Visit: No Status: Acute Assessment and plan: holding coumadin in setting of posssible GI bleed and placement of permacath tomorrow. - Subjective Interval history: 51F evaluated during dialysis. patient denies nausea, vomiting, diarrhea, fever , chills, chest pain, shortness of breath. - Constitutional Vitals: Temp Pulse Resp BP Pulse Ox 99.3 F 122 28 115/57 96 03/30/17 07:49 03/30/17 07:49 03/30/17 08:14 03/30/17 07:49 03/30/17 08:14 General appearance: Present: A&O X 3, morbidly obese, pleasant, no acute distress, answers questions appropriately - Head Head exam: Present: atraumatic, normocephalic - Neck Additional comments: tracheostomy in place - Respiratory Respiratory exam: Present: decreased breath sounds, wheezes - Cardiovascular Cardiovascular exam: Present: RRR, +S1, +S2 - GI/Abdominal GI/Abdominal exam: Present: diminished bowel sounds, distended, soft. Absent: tenderness - Extremities Exam Additional comments: +1 bilateral lower extremity pitting edema - Neurological Exam Neurological exam: Present: alert, oriented X3 - Psychiatric Psychiatric exam: Present: normal affect, normal mood - Skin Skin exam: Present: intact Internal Medicine: Result - Labs CBC & Chem 7: 03/30/17 06:10 03/30/17 06:10 Labs: Short CBC 03/29/17 03/30/17 Range/Units 16:13 06:10 WBC 7.0 (4.3-11.1) K/mcL Hgb 7.7 L 7.2 L (11.5-15.4) g/dL Hct 25.9 L 24.5 L (35.3-44.9) % Plt Count 251 (140-400) K/mcL Neutrophils # 5.1 (1.6-8.9) K/mcL BMP 03/30/17 06:10 Sodium 142 Potassium 4.5 Chloride 104 Carbon Dioxide 20 BUN 121 H Creatinine 6.24 H Glucose 132 H Calcium 6.6 L - ABG Interpretation ABG results: PT/INR, D-dimer PT 20.5 Seconds (9.4-12.1) H 03/30/17 06:10 - Impressions Impressions Guidance Needle Placement Ultrasound 03/29/17 00:00 IMPRESSION: Successful ultrasound guided non-tunneled right groin catheter placement. D/ / Maximus Ireland MD / Maximus Ireland MD Interpreting Provider: Maximus Ireland MD Insertion Non-Tunneled Catheter 03/29/17 00:00 IMPRESSION: This has already been dictated D/ / Maximus Ireland MD / Maximus Ireland MD Interpreting Provider: Maximus Ireland MD X-Ray 03/29/17 09:13 IMPRESSION: The distal end of the newly placed temporary hemodialysis catheter is at the junction of the right common iliac vein and IVC. D/ / Kamari Waldrop MD / Kamari Waldrop MD Interpreting Provider: Kamari Waldrop MD Consult Discharge Plan - Plan Referrals: Ender Hodge MD [Primary Care Provider] - <Sancho Rubio A - Last Filed: 03/30/17 18:45> Date of Encounter: 03/30/17 - Assessment and plan (1) UTI (urinary tract infection) Current Visit: Yes Status: Acute Qualifiers: Urinary tract infection type: acute cystitis Hematuria presence: without hematuria Qualified Code(s): N30.00 - Acute cystitis without hematuria (2) Rwgqn-mr-kcqlgve kidney injury Current Visit: Yes Status: Acute Qualifiers: Acute renal failure type: unspecified Chronic kidney disease stage: on chronic dialysis Qualified Code(s): N17.9 - Acute kidney failure, unspecified ; N18.9 - Chronic kidney disease, unspecified; N18.9 - Chronic kidney disease, unspecified; Z99.2 - Dependence on renal dialysis; Z99.2 - Dependence on renal dialysis; Z99.2 - Dependence on renal dialysis; Z99.2 - Dependence on renal dialysis (3) Supratherapeutic INR Current Visit: Yes Status: Resolved (4) Anemia Current Visit: Yes Status: Acute Qualifiers: Anemia type: due to chronic kidney disease Chronic kidney disease stage: on chronic dialysis Qualified Code(s): N18.6 - End stage renal disease; D63.1 - Anemia in chronic kidney disease; D63.1 - Anemia in chronic kidney disease; Z99.2 - Dependence on renal dialysis; Z99.2 - Dependence on renal dialysis; Z99.2 - Dependence on renal dialysis; Z99.2 - Dependence on renal dialysis (5) COPD (chronic obstructive pulmonary disease) Current Visit: No Status: Acute Qualifiers: COPD type: emphysema Emphysema type: other Qualified Code(s): J43.8 - Other emphysema (6) Diabetes mellitus Current Visit: Yes Status: Acute Qualifiers: Diabetes mellitus type: type 2 Diabetes mellitus complication status: with kidney complications Diabetes mellitus complication detail: with chronic kidney disease Diabetes mellitus termite control technician insulin use: with termite control technician use Chronic kidney disease stage: on chronic dialysis Qualified Code(s): E11.22 - Type 2 diabetes mellitus with diabetic chronic kidney disease; N18.6 - End stage renal disease; Z99.2 - Dependence on renal dialysis; Z99.2 - Dependence on renal dialysis; Z99.2 - Dependence on renal dialysis; N18.6 - End stage renal disease; N18.6 - End stage renal disease; N18.6 - End stage renal disease ; Z79.4 - keno terminal operator (current) use of insulin; Z79.4 - detention (current) use of insulin; Z79.4 - keno terminal operator (current) use of insulin; Z79.4 - detention ( current) use of insulin; Z99.2 - Dependence on renal dialysis (7) Chronic diastolic heart failure Current Visit: Yes Status: Chronic (8) Morbid obesity Current Visit: Yes Status: Chronic (9) Atrial flutter, chronic Current Visit: Yes Status: Acute (10) Chronic respiratory failure Current Visit: Yes Status: Acute Qualifiers: Respiratory failure complication: hypoxia and hypercapnia Qualified Code(s) : J96.11 - Chronic respiratory failure with hypoxia; J96.12 - Chronic respiratory failure with hypercapnia; J96.12 - Chronic respiratory failure with hypercapnia; J96.12 - Chronic respiratory failure with hypercapnia - Constitutional Vitals: Temp Pulse Resp BP Pulse Ox 99.0 F 118 17 112/60 97 03/30/17 14:56 03/30/17 14:56 03/30/17 16:01 03/30/17 14:56 03/30/17 16:01 Internal Medicine: Result - Labs CBC & Chem 7: 03/30/17 06:10 03/30/17 06:10 Labs: Short CBC 03/30/17 Range/Units 06:10 WBC 7.0 (4.3-11.1) K/mcL Hgb 7.2 L (11.5-15.4) g/dL Hct 24.5 L (35.3-44.9) % Plt Count 251 (140-400) K/mcL Neutrophils # 5.1 (1.6-8.9) K/mcL BMP 03/30/17 06:10 Sodium 142 Potassium 4.5 Chloride 104 Carbon Dioxide 20 BUN 121 H Creatinine 6.24 H Glucose 132 H Calcium 6.6 L - ABG Interpretation ABG results: PT/INR, D-dimer PT 20.5 Seconds (9.4-12.1) H 03/30/17 06:10 - Attending Attestation I examined this patient and my medical decision-making was reviewed with the Resident Physician on 03/30/17. I agree with the documented findings, disposition and treatment plan as described except to the extent set forth below. Ms Denson is currently admitted for ESRD starting HD, anemia and chronic resp failure. She remains moderate to high risk due to potential for worsening cardiac and respiratory status. Ms Denson went to dialysis today. She is still very anemic and will be getting more blood. GI to scope tomorrow. Now in a flutter. Anticoagulant on hold for lines and anemia. Tolerating dialysis. Exam Alert. Comfortable Mucus membranes dry Heart irreg Lungs diminished Abd soft I/P 1. Anemia - transfuse. GI eval. 2. A flutter - card to see 3. ESRD on HD - needs permacath placed Further diagnoses and plan as above
--- NOTE | 2017-03-30 10:23 | Gastroenterology Consult Note ---
<Josue Marroquin - Last Filed: 03/30/17 10:05> Date of Encounter: 03/30/17 Time of Encounter: 10:05 - Assessment and plan (1) Anemia Current Visit: Yes Status: Acute Assessment and plan: hx of anemia of chornic disease ins ettin gof CKD IV now in renal failure required 6 RBC transfusions no clear source of bleeding on warfarin for chornic a flutter in 2014 admitted for Required 6 anemia 2nd to vaginal bleeding and was tranferred [facility] for further evaluation and treatment. plan: EGD today. Request [facility] Records hold warfarin Qualifiers: Anemia type: due to chronic kidney disease Chronic kidney disease stage: on chronic dialysis Qualified Code(s): N18.6 - End stage renal disease; D63.1 - Anemia in chronic kidney disease; D63.1 - Anemia in chronic kidney disease; Z99.2 - Dependence on renal dialysis; Z99.2 - Dependence on renal dialysis; Z99.2 - Dependence on renal dialysis; Z99.2 - Dependence on renal dialysis (2) Wptbk-ns-bsfxkzl kidney injury Current Visit: Yes Status: Acute Assessment and plan: requiring intermittent hemodialysis. underlying cause of her chronic anemia. As her primary and nephrology. Qualifiers: Acute renal failure type: unspecified Chronic kidney disease stage: on chronic dialysis Qualified Code(s): N17.9 - Acute kidney failure, unspecified ; N18.9 - Chronic kidney disease, unspecified; N18.9 - Chronic kidney disease, unspecified; Z99.2 - Dependence on renal dialysis; Z99.2 - Dependence on renal dialysis; Z99.2 - Dependence on renal dialysis; Z99.2 - Dependence on renal dialysis (3) Diabetes mellitus Current Visit: Yes Status: Acute Assessment and plan: history of diabetes mellitus On insulin regimen. as per primary Qualifiers: Diabetes mellitus type: type 2 Diabetes mellitus complication status: with kidney complications Diabetes mellitus complication detail: with chronic kidney disease Diabetes mellitus terminal operations manager insulin use: with terminal operations manager use Chronic kidney disease stage: on chronic dialysis Qualified Code(s): E11.22 - Type 2 diabetes mellitus with diabetic chronic kidney disease; N18.6 - End stage renal disease; Z99.2 - Dependence on renal dialysis; Z99.2 - Dependence on renal dialysis; Z99.2 - Dependence on renal dialysis; N18.6 - End stage renal disease; N18.6 - End stage renal disease; N18.6 - End stage renal disease ; Z79.4 - long term care administrator (current) use of insulin; Z79.4 - long term care administrator (current) use of insulin; Z79.4 - long-term (current) use of insulin; Z79.4 - long-term ( current) use of insulin; Z99.2 - Dependence on renal dialysis (4) Atrial flutter, chronic Current Visit: Yes Status: Acute Assessment and plan: in atrial fluter on admission currently tachycardic. on warafrin for anticoagulation was on hold. - Time Spent With Patient Total time spent is greater than 50% in coordination of care (as documented) at patient's floor/unit and/or counseling patient: GI History of Present Illness - Data of Consult Patient: new to practice Consult date: 03/30/17 Requesting Physician: Sancho uRbio, DO - Consult Narrative Reason for consult: Rule out GI bleed History of present illness: Ms. Denson is a 51 year old female who presented from [facility] with complaint of "filling up with fluid." Patient states she has gained 10 pounds in the last week. Patient reported fatigue and denies shortness of breath, cough, chest pain , nausea, vomiting, hematochezia, melena. Upon arrival patient was found to be in acute renal failure, hyperkalemic. She has a history of CKD 4 with plan for an AV shunt placement. Patient had a right intermittent femoral dialysis catheter placed and dialysis was started. She also had a supratherapeutic INR of 4.8. As she is on Coumadin for atrial flutter which was reversed by vitamin K. Patient has history of chronic anemia with a baseline hemoglobin of 9-10. She is on an arrest at home. Since admission her hemoglobin has dropped below 7 and she has required 6 red blood cell transfusions. She has remained hemodynamically stable and her respiratory status has been stable(chronic trach) . No source of bleeding can be identified currently. Consult is placed to rule out GI bleed. Patient denies previous colonoscopy, EGD. Patient had admission in 2014 for anemia. Patient was found to have vaginal bleeding and required multiple transfusions and had to be transferred to [place] for further treatment. Patient stated after her transfer she was given more transfusions but no explanation for vaginal bleeding was found. Records have been requested from our [facility]. Past Med Surg Social Fam HX - Past Medical History Medical history: diabetes, renal disease, GERD, hyperlipidemia, pulmonary embolus, thyroid disease, coronary artery disease, CHF, COPD Psychiatric history: anxiety, depression - Past Surgical History Surgical History: other - Social History Smoking Status: Never smoker Smokeless Tobacco Status: No Alcohol use: none Drug use: none - Family History Mother Living Status: Still Living Hx Family Cardiac Disorders: Yes (Hypertension) Hx Family Endocrine Disorder: Yes (Diabetes) Review of Systems: Constitutional: Denies fever, chills HEENT: Denies headache, vision changes, neck pain, sore throat, rhinorrhea Heart: Denies chest pain palpitations Lungs: Denies shortness of breath cough Abdomen: Denies abdominal pain nausea vomiting diarrhea Back: Denies back pain Kidney: Denies dysuria, hematuria. Reports decreased urinary frequency. Skin: warm and dry Extremities: Reports swelling, denies pain Neuro: Denies numbness, and tingling - Constitutional Vitals: Temp Pulse Resp BP Pulse Ox 99.3 F 122 28 122/50 96 03/30/17 08:05 03/30/17 07:49 03/30/17 08:14 03/30/17 08:50 03/30/17 08:14 - Other Additional findings: General: Pleasant without distress HEENT: Head atraumatic, normocephalic, EOMI, PERRL, neck nontender to palpation , absent lymphadenopathy, Moist Mucous Membranes, tracheostomy Heart: Tachycardic. Difficult to examine due to body habitus. Lungs: Coarse bilaterally Abdomen: Soft nontender, nondistended positive bowel sounds Skin: warm and dry Extremities: 2+ pedal edema bilaterally Neuro: Alert and oriented 3. Vascular: Pedal and radial pulses 2 out of 4 Results - Labs CBC & Chem 7: 03/30/17 06:10 03/30/17 06:10 Labs: Last Result Calcium 6.6 mg/dL (8.6-10.8) L 03/30/17 06:10 Troponin I 0.01 ng/mL (0-0.03) 03/27/17 13:15 Entire Visit Hgb 7.2 g/dL (11.5-15.4) L 03/30/17 06:10 Hct 24.5 % (35.3-44.9) L 03/30/17 06:10 PT 20.5 Seconds (9.4-12.1) H 03/30/17 06:10 - ABG ABG results: PT/INR, D-dimer PT 20.5 Seconds (9.4-12.1) H 03/30/17 06:10 - Impressions Impressions Guidance Needle Placement Ultrasound 03/29/17 00:00 IMPRESSION: Successful ultrasound guided non-tunneled right groin catheter placement. D/ / Maximus Ireland MD / Maximus Ireland MD Interpreting Provider: Maximus Ireland MD Insertion Non-Tunneled Catheter 03/29/17 00:00 IMPRESSION: This has already been dictated D/ / Maximus Ireland MD / Maximus Ireland MD Interpreting Provider: Maximus Ireland MD Consult Discharge Plan - Plan Referrals: Ender Hodge MD [Primary Care Provider] - <Chioma Ramos - Last Filed: 03/30/17 17:38> Date of Encounter: 03/30/17 Time of Encounter: 15:00 - Time Spent With Patient Total time spent is greater than 50% in coordination of care (as documented) at patient's floor/unit and/or counseling patient: GI History of Present Illness - Data of Consult Requesting Physician: Sancho Rubio DO - Consult Narrative History of present illness: Ms. Denson is a 51 year old female - Constitutional Vitals: Temp Pulse Resp BP Pulse Ox 99.0 F 118 17 112/60 97 03/30/17 14:56 03/30/17 14:56 03/30/17 16:01 03/30/17 14:56 03/30/17 16:01 Results - Labs CBC & Chem 7: 03/30/17 06:10 03/30/17 06:10 Labs: Last Result Calcium 6.6 mg/dL (8.6-10.8) L 03/30/17 06:10 Troponin I 0.01 ng/mL (0-0.03) 03/27/17 13:15 Entire Visit Hgb 7.2 g/dL (11.5-15.4) L 03/30/17 06:10 Hct 24.5 % (35.3-44.9) L 03/30/17 06:10 PT 20.5 Seconds (9.4-12.1) H 03/30/17 06:10 - ABG ABG results: PT/INR, D-dimer PT 20.5 Seconds (9.4-12.1) H 03/30/17 06:10 - Attending Attestation I examined this patient and my medical decision-making was reviewed with the Resident Physician. I agree with the documented findings, disposition and treatment plan as described except to the extent set forth below. Patient with morbid obesity now with anemia. No overt bleeding because of her multiple comorbidities she will need to be done in the OR and it would be best to just prep her and do both EGD and colonoscopy the same time.
[2017-03-30] MEDS: Budesonide/Formoterol 160/4.5 MDI IH SCH (11:32)
[2017-03-30] MEDS ORDERED: 0.9 % Sodium Chloride 2,000 ML ONE (11:52)
[2017-03-30] MEDS: cefTRIAXone 2,000 MG in Water for inj. (sterile) 20 ML IVP SCH (11:56)
[2017-03-30] MEDS: acetaZOLAMIDE 250 MG TABLET PO SCH (11:57)
[2017-03-30] MEDS: Metoprolol XL (24 HR) Succ 50 MG TAB.ER.24H PO SCH (11:57)
[2017-03-30] MEDS: Gabapentin 100 MG CAPSULE PO SCH ×2 (11:57→20:54)
[2017-03-30] MEDS: Venlafaxine XR (24 HR) 37.5 MG CAP.ER.24H PO SCH (11:57)
[2017-03-30] MEDS: Fenofibrate 54 MG TABLET PO SCH (11:58)
[2017-03-30] MEDS: Famotidine 20 MG TABLET PO SCH (11:58)
[2017-03-30] MEDS: Chlorhexidine Rinse 15 ML MOUTHWASH MM SCH ×2 (11:58→20:53)
[2017-03-30] MEDS: Nystatin POWDER 30 GM BOTTLE TP SCH ×3 (11:59→20:55)
[2017-03-30] MEDS: Artificial Tears SOLN 15 ML BOTTLE OP SCH ×3 (11:59→20:55)
[2017-03-30] MEDS: Pantoprazole 40 MG VIAL IVP SCH ×2 (12:04→16:23)
[2017-03-30] MEDS ORDERED: 0.9 % Sodium Chloride 500 ML ONE (14:15)
[2017-03-30] MEDS ORDERED: SODIUM CHLORIDE/NAHCO3/KCL/PEG 4,000 ML SOLN.RECON PO ONE (14:53)
--- NOTE | 2017-03-30 14:58 | Cardiology Consult Note ---
Date of Encounter: 03/30/17 Time of Encounter: 14:57 Assessment and Plan (1) Atrial flutter, chronic Current Visit: Yes Status: Acute Previously documented atrial flutter with RVR, likely secondary to general health condition Patient is severely anemic with Hgb 7.1 s/p 4 units PRBC with 2 more scheduled Echo from 2014 showed LVEF 60%, CXR 03/27/17 shows mild pulmonary edema Heart rate currently poorly controlled, average ~115bpm Patient was initially hypotensive, however she her pressure has improved over the course of her stay [id number], high risk for thromboembolic events and will need assistant terminal manager anti -coagulation if possible Recommendations: Check new TSH The primary concern for this patient is to stabilize and increase anemia and improve respiratory status, which should help heart rate We will modify medications when other major systems are appropriately addressed. Patient is scheduled for EDG/Colonoscopy and perma-cath insertion tomorrow. The patient is at high risk for these procedures given her cardiopulmonary status. Discussion w patient/family: The assessment and plan as outlined above was discussed with the patient and/or family members who expressed understanding and agreement. All questions were answered. Thank you for involving us in the care of your patient. Please call with any questions. History of Present Illness Consult date: 03/30/17 Requesting physician: Nhung Tyson Consult reason: a flutter rvr Chief complaint: atrial flutter rvr History of present illness: Ms. Denson is a 51 year old female with a complicated medical history including UTI, CK 80, morbid obesity, diabetes mellitus type 2, CKD, GERD, hypertension, thyroid disease, CHF, COPD, ventilator dependent tracheotomy who presented to the ED from half-way due to feeling poor. Apparently she had not been feeling well for about one week, and she gained about 10 pounds in that week. At time of arrival the patient was found to be hyperkalemic and was in need of hemodialysis. Additionally, the time she was found to have atrial flutter with rapid ventricular response which is not new, and has been treated with coumadin. To her knowledge the patient has never had this before. She does state that her mother has had atrial fibrillation or atrial flutter. She denies any significant cardiac history, says that she has never had any heart attacks, she has not had chest pain or shortness of breath associated with this. Her knowledge she cannot feel the rapid heart rate or any palpitations. During this hospitalization, the patient has been treated for severe sepsis with hypotension due to UTI, hyperkalemia due to CKD, and has additionally had a severe anemia with hemoglobin as low as 7.1 status post 4 units packed red blood cells but has seen little improvement in her heart rate. The patient is scheduled to undergo EGD/Colonoscopy tomorrow, as well as placement of perm- cath. Echo from 2014 shows LVEF 60% without significant structural disease, Troponins negative. Past Med Surg Social Fam HX - Past Medical History Medical history: diabetes, renal disease, GERD, hyperlipidemia, pulmonary embolus, thyroid disease, coronary artery disease, CHF, COPD Psychiatric history: anxiety, depression - Past Surgical History Surgical History: other - Social History Smoking Status: Never smoker Smokeless Tobacco Status: No Alcohol use: none Drug use: none - Family History Mother Living Status: Still Living Hx Family Cardiac Disorders: Yes (Hypertension) Hx Family Endocrine Disorder: Yes (Diabetes) Medications and Allergies AcetaZOLAMIDE [Diamox] 250 mg PO DAILY 12/04/14 [History] Acetaminophen [Tylenol] 500 mg PO Q6HR 12/04/14 [History] Budesonide/Formoterol 160/4.5 [Symbicort] 2 puff IH BID 12/04/14 [History] Calcitriol [Rocaltrol] 0.25 mcg PO DAILY 12/04/14 [History] Famotidine [Pepcid] 20 mg PO DAILY 12/04/14 [History] Furosemide [Lasix] 80 mg PO BID 12/04/14 [History] Gabapentin [Neurontin] 200 mg PO Q8H 12/04/14 [History] Glimepiride [Amaryl] 4 mg PO DAILY 12/04/14 [History] Ipratropium [ATROVENT Inhaler] 4 puff IH QID 12/04/14 [History] Lactulose 30 gm PO DAILY 12/04/14 [History] Levothyroxine [Synthroid] 200 mcg PO DAILY 12/04/14 [History] Linagliptin [Tradjenta] 5 mg PO DAILY 12/04/14 [History] Losartan [Cozaar] 25 mg PO DAILY 12/04/14 [History] Nitroglycerin 0.4 mg SL AD PRN 12/04/14 [History] OxyCODONE Immed Rel [Roxicodone 5 MG] 10 mg PO Q4HR PRN 12/04/14 [History] Pravastatin Sodium [Pravachol] 40 mg PO DAILY 12/04/14 [History] Venlafaxine XR (24 HR) [Effexor XR] 112.5 mg PO DAILY 12/04/14 [History] Zolpidem [Ambien] 10 mg PO HS 12/04/14 [History] Artificial Tear Drops [Isopto Tears] 1 drop OP TID 12/25/14 [History] Bisacodyl [Dulcolax] 10 mg PO DAILY PRN 12/25/14 [History] Chlorhexidine Rinse 15 ml MM BID 12/25/14 [History] Multivitamin/Iron/Folic Acid [Centrum Complete Multivit Tab] 1 each PO DAILY 12/31 [History] guaiFENesin [Q-Tussin] 30 ml PO Q4H PRN 12/25/14 [History] Allopurinol [Zyloprim 100 MG] 200 mg PO DAILY 03/27/17 [History] Bethanechol Chloride [Urecholine] 25 mg PO Q8H 03/27/17 [History] Calcifediol [Rayaldee] 30 mcg PO DAILY 03/27/17 [History] Darbepoetin [Aranesp] 200 mcg SQ Q2W 03/27/17 [History] Fenofibrate Nanocrystallized [Triglide] 160 mg PO DAILY 03/27/17 [History] Insulin Glargine [Lantus] 20 unit SQ DAILY 03/27/17 [History] Insulin LISPRO [HumaLOG] 5 - 12 units SQ TIDWM 03/27/17 [History] Levothyroxine Sodium [Levoxyl] 25 mcg PO DAILY 03/27/17 [History] Metoprolol Succinate 50 mg PO DAILY 03/27/17 [History] Nitrofurantoin (BID) [Macrobid] 100 mg PO MOWEFR 03/27/17 [History] Warfarin Sodium [Coumadin] 6 mg PO DAILY 03/27/17 [History] Warfarin [Coumadin] 1 mg PO DAILY 03/27/17 [History] 3 Allergy/AdvReac Type Severity Reaction Status Date / Time albuterol Allergy Difficulty Verified 03/27/17 14:30 Breathing lisinopril Allergy Difficulty Verified 03/27/17 14:30 Breathing Sulfa (Sulfonamide Allergy Difficulty Verified 03/27/17 14:30 Antibiotics) Breathing ROS unobtainable: due to endotracheal tube Review of Systems: Patient has permanent tracheostomy and is only able to nod yes or shake head no. - Constitutional Constitutional: chills, lethargy, no fatigue, no fever(s) - EENT Eyes: no blurred vision, no loss of vision - Cardiovascular Cardiovascular: as per HPI, no chest pain at rest, no chest pain with exertion, no dyspnea at rest, no dyspnea on exertion, no irregular heart rhythm, no leg edema, no palpitations, no rapid heart rate - Respiratory Respiratory: no cough - Gastrointestinal Gastrointestinal: no abdominal pain, no coffee ground emesis - Genitourinary Genitourinary: dysuria Physical Examination Vital Signs, Last 4 Hours Temp Pulse Resp BP Pulse Ox 03/30/17 14:41 99.1 F 116 17 106/49 94 03/30/17 11:43 20 96 03/30/17 11:17 99.9 F H 127 16 101/67 97 03/30/17 11:15 99.3 F 21 117/81 03/30/17 11:05 134/79 General: No Apparent Distress, Other (Morbidly obese on ventilator) HEENT: Atraumatic, Normocephaly, Mucus Membranes Moist Neck: No JVD, Normal carotid pulses Cardiac: Reg Rate and Rhythm, Normal S1 and S2, No Murmur, Other (Difficult to assess due to size and position) Lungs: Normal Breath Sounds, No Wheeze, Rales, Rhonchi Neuro: Alert and responsive, No focal deficits noted Abdomen: Soft, Non-Tender Skin: No rashes noted on visualized skin Musculoskeletal: No Chest Wall Tenderness Extremities: No Clubbing, No Cyanosis, Normal Pulses, Other (+1 edema LEs b/l) Results 03/30/17 06:10 03/30/17 06:10 Lab Results 03/29/17 03/30/17 03/30/17 16:13 06:10 06:10 WBC 7.0 Hgb 7.7 L 7.2 L Hct 25.9 L 24.5 L Plt Count 251 INR 1.9 Sodium Potassium Chloride Carbon Dioxide BUN Creatinine Glucose Calcium 12/13/17 06:10 WBC Hgb Hct Plt Count INR Sodium 142 Potassium 4.5 Chloride 104 Carbon Dioxide 20 BUN 121 H Creatinine 6.24 H Glucose 132 H Calcium 6.6 L - Imaging and Cardiology Chest Xray: report reviewed Echo: report reviewed - EKG Interpretation EKG results cardiology: personally reviewed (Atrial flutter, RVR) Consult Discharge Plan - Plan Referrals: Ender Hodge MD [Primary Care Provider] -
--- NOTE | 2017-03-30 17:23 | Nephrology Progress Note ---
Date of Encounter: 03/30/17 Time of Encounter: 11:10 - Assessment and Plan (1) End stage chronic kidney disease Current Visit: Yes Status: Acute Will continue HD with UF as tolerated. Problems with femoral cathter today as pt leans forward and cause a kink in line, will need to replace with permcath by tomorrow before third treatment. Pt to receive FFP and have inr under 1.5 for IR Will plan third treatment tomorrow after permcath Outpatient HD placement problematic given trach with vent and morbid obesity, discussed with social studies department chair (2) Hyperkalemia Current Visit: Yes Status: Resolved Resolved with HD Continue renal diet (3) Anemia Current Visit: Yes Status: Acute Hgb dropped again to 7.2 after transfusion pRBCs, another round of transfusions planned per primary team Qualifiers: Anemia type: due to chronic kidney disease Chronic kidney disease stage: on chronic dialysis Qualified Code(s): N18.6 - End stage renal disease; D63.1 - Anemia in chronic kidney disease; D63.1 - Anemia in chronic kidney disease; Z99.2 - Dependence on renal dialysis; Z99.2 - Dependence on renal dialysis; Z99.2 - Dependence on renal dialysis; Z99.2 - Dependence on renal dialysis Subjective Interval history: Pt seen and examined on HD for second treatment. No new complaints. Objective - Vital Signs Vital signs: Vital Signs Temp Pulse Resp BP Pulse Ox 03/30/17 16:01 17 97 03/30/17 15:56 17 97 03/30/17 14:56 99.0 F 118 22 112/60 93 03/30/17 14:41 99.1 F 116 17 106/49 94 03/30/17 11:43 20 96 03/30/17 11:17 99.9 F H 127 16 101/67 97 03/30/17 11:15 99.3 F 21 117/81 03/30/17 11:05 134/79 03/30/17 10:50 144/49 03/30/17 10:35 123/58 03/30/17 10:20 128/61 03/30/17 10:05 135/64 03/30/17 09:50 122/50 03/30/17 09:35 130/86 03/30/17 09:20 137/49 03/30/17 09:05 125/48 03/30/17 08:50 122/50 03/30/17 08:35 138/50 03/30/17 08:20 130/57 03/30/17 08:14 28 96 03/30/17 08:05 99.3 F 24 135/41 03/30/17 07:49 99.3 F 122 18 115/57 99 03/30/17 04:46 99.3 F 125 18 103/56 98 03/30/17 04:22 117 18 98 03/29/17 23:59 19 122/68 97 03/29/17 23:15 99.7 F H 118 17 122/68 98 03/29/17 22:37 19 96/64 98 03/29/17 21:44 123 17 98 03/29/17 20:15 99.5 F 119 17 96/64 98 03/29/17 20:08 99.5 F 96/64 03/29/17 19:57 27 96/64 99 Intake and Output 03/30/17 03/30/17 03/30/17 07:59 15:59 23:59 Intake Total 950 / 950 Output Total 3600 / 3600 Balance -2650 / -2650 Intake: Oral 0 / 0 Blood Product 350 / 350 Rbcs Leuko Poor As-1 Unit 350 / 350 [id number] Intake, Rinseback and Flushes 600 / 600 Output: Urine 0 / 0 Total Dialysis (HD) Output 3600 / 3600 Other: Weight 236.5 kg Blood Glucose* 133 155 131 Hemodialysis Net Fluid Removed 3000 (mL) Patient Weight 03/30/17 23:59 Weight 236.5 kg - Lab 03/30/17 06:10 03/30/17 06:10 Most recent lab results Calcium 6.6 mg/dL (8.6-10.8) L 03/30/17 06:10 Phosphorus 6.7 mg/dL (2.3-4.7) H 03/29/17 12:53 Magnesium 2.0 mg/dL (1.6-2.6) 03/28/17 03:59 Consult Discharge Plan - Plan Referrals: Ender Hodge MD [Primary Care Provider] -
[2017-03-30] MEDS: Insulin DETEMIR 100 UNIT/ML X5UNITS SQ SCH (20:54)
[2017-03-30] MEDS ORDERED: 0.9 % Sodium Chloride 250 ML ONE (23:16)
[2017-03-31] MEDS: Ipratropium 1 PUFF INHALER IH SCH ×5 (00:33→21:47)
[2017-03-31] MEDS: Budesonide/Formoterol 160/4.5 MDI IH SCH ×3 (00:38→21:48)
[2017-03-31] MEDS ORDERED: 0.9 % Sodium Chloride 250 ML ONE (02:27)
[2017-03-31] MEDS: Pantoprazole 40 MG VIAL IVP SCH ×2 (05:14→19:02)
[2017-03-31 07:12] LABS: Basophils # 0.1 K/mcL (0.0-0.2); Basophils % 0.7 %; Eosinophils # 0.3 K/mcL (0.0-0.6); Eosinophils % 3.9 %; Hematocrit 26.5 % (35.3-44.9); Hemoglobin 8.2 g/dL (11.5-15.4); Lymphocytes # 0.7 K/mcL (0.6-4.6); Lymphocytes % 8.9 %; Mean Corpuscular HGB Conc 30.9 g/dL (31.6-35.5); Mean Corpuscular Hemoglobin 29.3 pg (28.0-33.3); Mean Corpuscular Volume 94.6 fL (83.0-100.0); Mean Platelet Volume 8.7 fL (9.4-12.4); Monocytes # 0.7 K/mcL (0.0-1.3); Monocytes % 8.7 %; Neutrophils # 6.3 K/mcL (1.6-8.9); Nucleated Red Blood Cells 1.5 /100 WBC (0); Platelet Count 230 K/mcL (140-400); Red Cell Distribution Width 16.9 % (11.5-14.5); Segmented Neutrophils % 76.8 %
[2017-03-31 07:18] LABS: INR 1.9
[2017-03-31 07:24] LABS: Calcium 7.1 mg/dL (8.6-10.8); Magnesium 1.6 mg/dL (1.6-2.6); Phosphorous 7.4 mg/dL (2.3-4.7); Potassium 4.3 mEq/L (3.5-4.5)
[2017-03-31] MEDS ORDERED: 0.9 % Sodium Chloride 250 ML IVC PRN (07:43)
[2017-03-31] MEDS ORDERED: *HR* Heparin 10,000 UNIT/10 ML VIAL IV PRN (07:43)
[2017-03-31 07:46] LABS: Thyroid Stimulating Hormone 4.15 mcIU/mL (0.350-4.840)
[2017-03-31] MEDS ORDERED: 0.9 % Sodium Chloride 2,000 ML ONE (08:12)
--- NOTE | 2017-03-31 08:57 | Internal Med Progress Note ---
<Nhung Tyson - Last Filed: 03/31/17 08:55> Date of Encounter: 03/31/17 Time of Encounter: 08:55 - Assessment and plan (1) Anemia Current Visit: Yes Status: Acute Assessment and plan: Hg today 8.2 s/p transfusion of 6 units prbc suspect GI bleed. Plan: INR today 1.9- ordered two more units FFP and 5mg IV vitamin K in anticipation of permacath placement today iron, folate, B12 ferritin pending stool guiac pending. NPO IV PPI BID patient bowel prepped. EGD/colonoscopy today in OR Qualifiers: Anemia type: due to chronic kidney disease Chronic kidney disease stage: on chronic dialysis Qualified Code(s): N18.6 - End stage renal disease (2) Sepsis Current Visit: Yes Status: Resolved Assessment and plan: low grade fevers, tachycardia, hypotension, tachypnea normal WBC source of infection likely UTI, rest of sepsis workup negative prelim blood cultures no growth lactic acid 1.3 Plan: continue rocephin day 4 Qualifiers: Sepsis type: Escherichia coli Qualified Code(s): A41.51 - Sepsis due to Escherichia coli [E. coli] (3) [id number] kidney injury Current Visit: Yes Status: Acute Assessment and plan: Cr today 6.76, baseline around 3.8 Etiology unclear at this time, but patient has progressed to ESRD was scheduled to have AV fistula done outpatient Plan: appreciate nephro recs dialysis per nephro Qualifiers: Acute renal failure type: unspecified Chronic kidney disease stage: on chronic dialysis Qualified Code(s): N17.9 - Acute kidney failure, unspecified ; N18.9 - Chronic kidney disease, unspecified; N18.9 - Chronic kidney disease, unspecified; Z99.2 - Dependence on renal dialysis; Z99.2 - Dependence on renal dialysis; Z99.2 - Dependence on renal dialysis; Z99.2 - Dependence on renal dialysis (4) Supratherapeutic INR Current Visit: Yes Status: Resolved Assessment and plan: pharmacy will dose coumadin after placement of permacath. continue to hold coumadin for now (5) UTI (urinary tract infection) Current Visit: Yes Status: Acute Assessment and plan: urine culture positive for E.Coli, pansensitive Plan: continue rocephin, day 4 Qualifiers: Urinary tract infection type: acute cystitis Hematuria presence: without hematuria Qualified Code(s): N30.00 - Acute cystitis without hematuria (6) Diabetes mellitus Current Visit: Yes Status: Acute Assessment and plan: continue basal with medium dose sliding scale/ACHS accuchecks. Qualifiers: Diabetes mellitus type: type 2 Diabetes mellitus complication status: with kidney complications Diabetes mellitus complication detail: with chronic kidney disease Diabetes mellitus marine oil terminal superintendent insulin use: with marine oil terminal superintendent use Chronic kidney disease stage: on chronic dialysis Qualified Code(s): E11.22 - Type 2 diabetes mellitus with diabetic chronic kidney disease; N18.6 - End stage renal disease; Z99.2 - Dependence on renal dialysis; Z99.2 - Dependence on renal dialysis; Z99.2 - Dependence on renal dialysis; N18.6 - End stage renal disease; N18.6 - End stage renal disease; N18.6 - End stage renal disease ; Z79.4 - intermediate teacher (current) use of insulin; Z79.4 - intermediate teacher (current) use of insulin; Z79.4 - intermediate teacher (current) use of insulin; Z79.4 - alf ( current) use of insulin; Z99.2 - Dependence on renal dialysis (7) COPD (chronic obstructive pulmonary disease) Current Visit: No Status: Acute Assessment and plan: not in exacerbation. continue home meds. Qualifiers: COPD type: emphysema Emphysema type: other Qualified Code(s): J43.8 - Other emphysema (8) Atrial flutter, chronic Current Visit: Yes Status: Acute Assessment and plan: continue metoprolol for rate control, with IV metoprolol PRN hold coumadin (9) Hyperkalemia Current Visit: Yes Status: Resolved Assessment and plan: resolved (10) DVT prophylaxis Current Visit: No Status: Acute Assessment and plan: holding coumadin in setting of posssible GI bleed and anticipation of permacath placement. - Subjective Interval history: 51F evaluated during dialysis. patient admits to being fatigued. patient denies any further problems today. - Constitutional Vitals: Temp Pulse Resp BP Pulse Ox 98.7 F 115 17 110/35 99 03/31/17 04:25 03/31/17 04:25 03/31/17 04:47 03/31/17 04:47 03/31/17 04:47 General appearance: Present: A&O X 3, morbidly obese, pleasant, no acute distress, answers questions appropriately - Head Head exam: Present: atraumatic, normocephalic - Neck Additional comments: tracheostomy in place - Respiratory Respiratory exam: Present: decreased breath sounds - Cardiovascular Cardiovascular exam: Present: tachycardia - GI/Abdominal GI/Abdominal exam: Present: diminished bowel sounds, distended. Absent: tenderness - Extremities Exam Additional comments: +1 bilateral lower extremity pitting edema. - Neurological Exam Neurological exam: Present: alert, oriented X3, no focal deficits - Psychiatric Psychiatric exam: Present: normal affect, normal mood - Skin Additional comments: stasis dermatitis present. Internal Medicine: Result - Labs CBC & Chem 7: 03/31/17 07:02 03/31/17 07:02 Labs: Short CBC 03/31/17 Range/Units 07:02 WBC 8.2 (4.3-11.1) K/mcL Hgb 8.2 L (11.5-15.4) g/dL Hct 26.5 L (35.3-44.9) % Plt Count 230 (140-400) K/mcL Neutrophils # 6.3 (1.6-8.9) K/mcL BMP 03/31/17 07:02 Sodium 138 Potassium 4.3 Chloride 101 Carbon Dioxide 21 BUN 95 H Creatinine 5.54 H Glucose 137 H Calcium 7.1 L - ABG Interpretation ABG results: PT/INR, D-dimer PT 21.0 Seconds (9.4-12.1) H 03/31/17 07:02 Consult Discharge Plan - Plan Referrals: Ender Hodge MD [Primary Care Provider] - Chioma Ramos MD [Partnered Physician] - (SENT WEB REQUEST ON 03-31-17 @ [id number]) <Sancho Rubio - Last Filed: 03/31/17 13:20> Date of Encounter: 03/31/17 - Assessment and plan (1) UTI (urinary tract infection) Current Visit: Yes Status: Acute Qualifiers: Urinary tract infection type: acute cystitis Hematuria presence: without hematuria Qualified Code(s): N30.00 - Acute cystitis without hematuria (2) [id number] kidney injury Current Visit: Yes Status: Acute Qualifiers: Acute renal failure type: unspecified Chronic kidney disease stage: on chronic dialysis Qualified Code(s): N17.9 - Acute kidney failure, unspecified ; N18.9 - Chronic kidney disease, unspecified; N18.9 - Chronic kidney disease, unspecified; Z99.2 - Dependence on renal dialysis; Z99.2 - Dependence on renal dialysis; Z99.2 - Dependence on renal dialysis; Z99.2 - Dependence on renal dialysis (3) Chronic respiratory failure Current Visit: Yes Status: Acute Qualifiers: Respiratory failure complication: hypoxia and hypercapnia Qualified Code(s) : J96.11 - Chronic respiratory failure with hypoxia; J96.12 - Chronic respiratory failure with hypercapnia; J96.12 - Chronic respiratory failure with hypercapnia; J96.12 - Chronic respiratory failure with hypercapnia (4) Supratherapeutic INR Current Visit: Yes Status: Resolved (5) Anemia Current Visit: Yes Status: Acute Qualifiers: Anemia type: iron deficiency Iron deficiency anemia type: chronic blood loss Qualified Code(s): D50.0 - Iron deficiency anemia secondary to blood loss (chronic) (6) COPD (chronic obstructive pulmonary disease) Current Visit: No Status: Acute Qualifiers: COPD type: emphysema Emphysema type: other Qualified Code(s): J43.8 - Other emphysema (7) Diabetes mellitus Current Visit: Yes Status: Acute Qualifiers: Diabetes mellitus type: type 2 Diabetes mellitus complication status: with kidney complications Diabetes mellitus complication detail: with chronic kidney disease Diabetes mellitus marine oil terminal superintendent insulin use: with marine oil terminal superintendent use Chronic kidney disease stage: on chronic dialysis Qualified Code(s): E11.22 - Type 2 diabetes mellitus with diabetic chronic kidney disease; N18.6 - End stage renal disease; Z99.2 - Dependence on renal dialysis; Z99.2 - Dependence on renal dialysis; Z99.2 - Dependence on renal dialysis; N18.6 - End stage renal disease; N18.6 - End stage renal disease; N18.6 - End stage renal disease ; Z79.4 - intermediate teacher (current) use of insulin; Z79.4 - alf (current) use of insulin; Z79.4 - intermediate teacher (current) use of insulin; Z79.4 - alf ( current) use of insulin; Z99.2 - Dependence on renal dialysis (8) Chronic diastolic heart failure Current Visit: Yes Status: Chronic (9) Morbid obesity Current Visit: Yes Status: Chronic (10) Atrial flutter Current Visit: Yes Status: Acute Qualifiers: Atrial flutter type: typical Qualified Code(s): I48.3 - Typical atrial flutter - Constitutional Vitals: Temp Pulse Resp BP Pulse Ox 98.5 F 123 22 135/58 99 03/31/17 12:32 03/31/17 11:10 03/31/17 12:32 03/31/17 12:32 03/31/17 04:47 Internal Medicine: Result - Labs CBC & Chem 7: 03/31/17 07:02 03/31/17 07:02 Labs: Short CBC 03/31/17 Range/Units 07:02 WBC 8.2 (4.3-11.1) K/mcL Hgb 8.2 L (11.5-15.4) g/dL Hct 26.5 L (35.3-44.9) % Plt Count 230 (140-400) K/mcL Neutrophils # 6.3 (1.6-8.9) K/mcL BMP 03/31/17 07:02 Sodium 138 Potassium 4.3 Chloride 101 Carbon Dioxide 21 BUN 95 H Creatinine 5.54 H Glucose 137 H Calcium 7.1 L - ABG Interpretation ABG results: PT/INR, D-dimer PT 17.9 Seconds (9.4-12.1) H 03/31/17 11:51 - Attending Attestation I examined this patient and my medical decision-making was reviewed with the Resident Physician on 03/31/17. I agree with the documented findings, disposition and treatment plan as described except to the extent set forth below. Ms Denson is currently admitted for ESRD starting HD and anemia presumed to be GI bleed. She is chronic trach/vent. She remains moderate to high risk due to potential for worsening respiratory and clinical status. Ms Denson had bowel prep for EGD/colon today. No fever or chills. She is off her anticoagulation at this time. INR 1.9. She is to get permacath today if INR comes down a little. No chest pain. She has received 6 units PBRCs so far and FFP. Exam Alert. Comfortable Mucus membranes dry Heart irreg Lungs diminished Abd soft I/P 1. Anemia - endoscopy today in OR. 2. atrial fib/flutter - anticoagulation on hold at this time. 3. Chronic trach/PEG 4. ESRD on HD - permacath needs placed Further diagnoses and alston as above.
--- NOTE | 2017-03-31 10:07 | Anesthesia Evaluation PreOp ---
Date of Encounter: 03/31/17 Time of Encounter: 12:16 - Past History Planned Operation: EGD/Colonoscopy Cardiac History: CHF, HTN, Hyperlipidemia, Arrhythmia (A-Flutter) Pulmonary History: COPD, Other (trach on vent, H/O PE) DIMENSIONAL ENGINEER History: Denies Any Significant HX Other Medical History: Renal (on dialysis), Diabetes Type II, Thyroid, Other ( obesity BMI=84.2, anxiety/depression) Anesthesia History: No Prior Anesthetic Complications, Past Anesthesia Test: Negative (03/28/2017) Alcohol Use: none Drug use: none Medications and Allergies AcetaZOLAMIDE [Diamox] 250 mg PO DAILY 12/04/14 [History] Acetaminophen [Tylenol] 500 mg PO Q6HR 12/04/14 [History] Budesonide/Formoterol 160/4.5 [Symbicort] 2 puff IH BID 12/04/14 [History] Calcitriol [Rocaltrol] 0.25 mcg PO DAILY 12/04/14 [History] Famotidine [Pepcid] 20 mg PO DAILY 12/04/14 [History] Furosemide [Lasix] 80 mg PO BID 12/04/14 [History] Gabapentin [Neurontin] 200 mg PO Q8H 12/04/14 [History] Glimepiride [Amaryl] 4 mg PO DAILY 12/04/14 [History] Ipratropium [ATROVENT Inhaler] 4 puff IH QID 12/04/14 [History] Lactulose 30 gm PO DAILY 12/04/14 [History] Levothyroxine [Synthroid] 200 mcg PO DAILY 12/04/14 [History] Linagliptin [Tradjenta] 5 mg PO DAILY 12/04/14 [History] Losartan [Cozaar] 25 mg PO DAILY 12/04/14 [History] Nitroglycerin 0.4 mg SL AD PRN 12/04/14 [History] OxyCODONE Immed Rel [Roxicodone 5 MG] 10 mg PO Q4HR PRN 12/04/14 [History] Pravastatin Sodium [Pravachol] 40 mg PO DAILY 12/04/14 [History] Venlafaxine XR (24 HR) [Effexor XR] 112.5 mg PO DAILY 12/04/14 [History] Zolpidem [Ambien] 10 mg PO HS 12/04/14 [History] Artificial Tear Drops [Isopto Tears] 1 drop OP TID 12/25/14 [History] Bisacodyl [Dulcolax] 10 mg PO DAILY PRN 12/25/14 [History] Chlorhexidine Rinse 15 ml MM BID 12/25/14 [History] Multivitamin/Iron/Folic Acid [Centrum Complete Multivit Tab] 1 each PO DAILY 12/31 [History] guaiFENesin [Q-Tussin] 30 ml PO Q4H PRN 12/25/14 [History] Allopurinol [Zyloprim 100 MG] 200 mg PO DAILY 03/27/17 [History] Bethanechol Chloride [Urecholine] 25 mg PO Q8H 03/27/17 [History] Calcifediol [Rayaldee] 30 mcg PO DAILY 03/27/17 [History] Darbepoetin [Aranesp] 200 mcg SQ Q2W 03/27/17 [History] Fenofibrate Nanocrystallized [Triglide] 160 mg PO DAILY 03/27/17 [History] Insulin Glargine [Lantus] 20 unit SQ DAILY 03/27/17 [History] Insulin LISPRO [HumaLOG] 5 - 12 units SQ TIDWM 03/27/17 [History] Levothyroxine Sodium [Levoxyl] 25 mcg PO DAILY 03/27/17 [History] Metoprolol Succinate 50 mg PO DAILY 03/27/17 [History] Nitrofurantoin (BID) [Macrobid] 100 mg PO MOWEFR 03/27/17 [History] Warfarin Sodium [Coumadin] 6 mg PO DAILY 03/27/17 [History] Warfarin [Coumadin] 1 mg PO DAILY 03/27/17 [History] 3 Allergy/AdvReac Type Severity Reaction Status Date / Time albuterol Allergy Difficulty Verified 03/27/17 14:30 Breathing lisinopril Allergy Difficulty Verified 03/27/17 14:30 Breathing Sulfa (Sulfonamide Allergy Difficulty Verified 03/27/17 14:30 Antibiotics) Breathing - Meds/Allergy Pre-op Review Medications Reviewed: Yes Allergies Reviewed: Yes Beta Blockers on Current Med List: Yes If Beta Blockers taken, Date/Time (Last Dose taken): 03/30/2017 at 1157 Anesthesia Results - Labs 03/31/17 07:02 03/31/17 07:02 Laboratory Tests 03/27/17 03/31/17 17:27 07:02 PT 21.0 H INR 1.9 APTT 63.5 H Laboratory Tests 03/28/17 16:30 Serum , Qual Negative - Imaging EKG: report reviewed (03/28/2017 ATRIAL FLUTTER/TACHYCARDIA WITH RAPID VENTRICULAR RESPONSE LOW QRS VOLTAGE IN PRECORDIAL LEADS) Additional studies: 12/26/2014 Limited Echo Impressions: LVEF 60%. Grossly normal left ventricular structure and function. Diastolic function was not evaluated. Right ventricle was not well evaluated, but appeared to have normal systolic function. Unable to estimate RVSP due to lack of TR jet. This was a limited echocardiogram for LV function. Anesthesia Exam Vital Signs/O2 Sat/Glucose, Most Recent Temp Pulse Resp BP Pulse Ox 98.5 F 115 22 128/78 99 03/31/17 08:50 03/31/17 04:25 03/31/17 08:50 03/31/17 09:05 03/31/17 04:47 Blood Glucose* 218 Height: 5'6''/1.68 m Weight: 521 lbs/236.5 kg NPO (# of Hours): 8 Pain Scale: 0 Pain Scale Used: Numeric (1 - 10) - HEENT Pupil (Motor): EOMI Mallampati: Trach Teeth: Normal Oral Opening: Less than or equal to 3 - DIMENSIONAL ENGINEER LOC: Oriented DIMENSIONAL ENGINEER Motor: Normal RUE, Normal LUE, Normal RLE, Normal LLE, Normal Face DIMENSIONAL ENGINEER Sensory: Normal: RUE, LUE, Face, Deficit: RLE (diabetic neuropathy), LLE ( diabetic neuropathy) - Cardiac Rhythm: Regular Murmur: None - Pulmonary Breath Sounds: bilateral Rhonchi Respiratory Effort: Symmetrical Anesthesia Assess/Plan ASA Score: 4 Modified Bement Scale for Level of Consciousness: Cooperative, oriented, and tranquil Anesthetic Plan: General, MAC Monitoring Plan: Standard Monitors
[2017-03-31] MEDS ORDERED: 0.9 % Sodium Chloride 500 ML ONE (11:08)
--- NOTE | 2017-03-31 11:35 | Cardiology Progress Note ---
Date of Encounter: 03/31/17 Time of Encounter: 08:40 Assessment and Plan (1) Atrial flutter, chronic Current Visit: Yes Status: Acute Previously documented atrial flutter with RVR, likely secondary to general health condition Hemoglobin up to 8.2 s/p 6 units PRBC. Patient will undergo EGD today Echo from 2014 showed LVEF 60%, CXR 03/27/17 shows mild pulmonary edema Heart rate currently poorly controlled, average ~115bpm Patient was initially hypotensive, however she her pressure has improved over the course of her stay [id number], high risk for thromboembolic events and will need watermaster anti -coagulation if possible Recommendations: The primary concern for this patient is to stabilize and increase anemia and improve respiratory status, which should help heart rate We will increase Toprol XL to 50mg BID Cardiology to sign off, please call for any further recommendations Discussion w patient/family: The assessment and plan as outlined above was discussed with the patient and/or family members who expressed understanding and agreement. All questions were answered. Thank you for involving us in the care of your patient. Please call with any questions. Subjective Principal diagnosis: A Flutter Interval history: HR remained elevated overnight, patient having no chest pains, SOB improved Objective Vital Signs, Last 4 Hours Temp Pulse Resp BP 03/31/17 11:10 98.3 F 123 22 158/51 03/31/17 11:05 126/43 03/31/17 10:53 98.7 F 122 20 131/55 03/31/17 10:50 96/41 03/31/17 10:38 98.5 F 120 20 122/51 03/31/17 10:35 122/54 03/31/17 10:34 98.3 F 118 20 122/51 03/31/17 10:20 101/49 03/31/17 10:19 98.5 F 122 20 101/49 03/31/17 10:05 172/63 03/31/17 10:04 98.5 F 124 20 146/56 03/31/17 09:50 135/56 03/31/17 09:35 147/53 03/31/17 09:20 126/41 03/31/17 09:05 128/78 03/31/17 08:50 98.5 F 22 128/61 Other: General: No Apparent Distress, Other (Morbidly obese on ventilator) HEENT: Atraumatic, Normocephaly, Mucus Membranes Moist Neck: No JVD, Normal carotid pulses Cardiac: Reg Rate and Rhythm, Normal S1 and S2, No Murmur, Other (Difficult to assess due to size and position) Lungs: Normal Breath Sounds, Coarse lung sounds Neuro: Alert and responsive, No focal deficits noted Abdomen: Soft, Non-Tender Skin: No rashes noted on visualized skin Musculoskeletal: No Chest Wall Tenderness Extremities: No Clubbing, No Cyanosis, Normal Pulses, Other (+1 edema LEs b/l) Results 03/31/17 07:02 03/31/17 07:02 Lab Results 03/31/17 03/31/17 03/31/17 07:02 07:02 07:02 WBC 8.2 Hgb 8.2 L Hct 26.5 L Plt Count 230 INR 1.9 Sodium 138 Potassium 4.3 Chloride 101 Carbon Dioxide 21 BUN 95 H Creatinine 5.54 H Glucose 137 H Calcium 7.1 L Magnesium 1.6 TSH 4.150 Consult Discharge Plan - Plan Referrals: Ender Hodge MD [Primary Care Provider] -
[2017-03-31] MEDS ORDERED: *HR* Heparin 5,000 UNIT/ML VIAL ONE (12:23)
[2017-03-31 12:24] LABS: % Iron Saturation 7 % (15-50); Iron 35 mcg/dL (50-170); Transferrin 365 mg/dL (180-382)
[2017-03-31 12:31] LABS: INR 1.6; Prothrombin Time 17.9 Seconds (9.4-12.1)
[2017-03-31 12:35] LABS: Ferritin 274 ng/ml (5-204)
[2017-03-31 12:49] LABS: Folate 5.7 ng/mL (7.0-31.4)
--- NOTE | 2017-03-31 12:56 | IR Procedure Note ---
Date of procedure: 03/31/17 Consent Obtained: Verbal consent Timeout: Correct patient and procedure verified, Correct site verified, Time out performed, Skin prep completed Local anesthetic: Lidocaine 1% Indications: Renal failure Procedure Performed: Tunneled HD catheter placement Site/Technique: Right IJ HD catheter placed Results/Findings: HD catheter in good position Estimated blood loss (cc): 2 Complications: None; Tolerated procedure well Post Procedure Treatment Plan: May use HD catheter now
[2017-03-31] MEDS: Gabapentin 100 MG CAPSULE PO SCH ×2 (15:07→21:06)
[2017-03-31] MEDS: Fenofibrate 54 MG TABLET PO SCH (15:07)
[2017-03-31] MEDS: acetaZOLAMIDE 250 MG TABLET PO SCH (15:07)
[2017-03-31] MEDS: Levothyroxine 25 MCG TABLET PO SCH (15:09)
[2017-03-31] MEDS ORDERED: Micafungin 100 MG in 0.9 % Sodium Chloride 100 ML IVPB ONE (15:11)
[2017-03-31] MEDS: cefTRIAXone 2,000 MG in Water for inj. (sterile) 20 ML IVP SCH (15:20)
[2017-03-31] MEDS: Chlorhexidine Rinse 15 ML MOUTHWASH MM SCH ×2 (15:21→21:05)
[2017-03-31] MEDS: Insulin LISPRO 300 UNITS/3 ML VIAL SQ SCH ×4 (15:21→21:09)
[2017-03-31] MEDS: Artificial Tears SOLN 15 ML BOTTLE OP SCH ×3 (15:22→21:08)
[2017-03-31] MEDS: Nystatin POWDER 30 GM BOTTLE TP SCH ×3 (15:22→23:31)
[2017-03-31] MEDS ORDERED: *HR* Propofol 200 MG/20 ML VIAL IVP ONE (17:11)
[2017-03-31] MEDS ORDERED: *HR* Metoprolol 5 MG/5 ML VIAL IVP ONE (17:41)
[2017-03-31] MEDS ORDERED: Propofol 500 MG/50 ML INFUS..BTL ONE (17:56)
[2017-03-31] MEDS: Venlafaxine XR (24 HR) 37.5 MG CAP.ER.24H PO SCH (18:57)
[2017-03-31] MEDS: Metoprolol XL (24 HR) Succ 50 MG TAB.ER.24H PO SCH (21:05)
[2017-03-31] MEDS: Insulin DETEMIR 100 UNIT/ML X5UNITS SQ SCH (21:06)
[2017-03-31] MEDS: *HR* OxyCODONE Immed Rel 5 MG TABLET PO PRN (21:06)
[2017-04-01 05:05] LABS: Basophils # 0.1 K/mcL (0.0-0.2); Basophils % 0.8 %; Eosinophils # 0.4 K/mcL (0.0-0.6); Eosinophils % 4.7 %; Hematocrit 27.6 % (35.3-44.9); Hemoglobin 8.3 g/dL (11.5-15.4); Immature Granulocytes % 1.1 % (0-4); Lymphocytes # 0.7 K/mcL (0.6-4.6); Lymphocytes % 8.7 %; Mean Corpuscular HGB Conc 30.1 g/dL (31.6-35.5); Mean Corpuscular Hemoglobin 29.1 pg (28.0-33.3); Mean Corpuscular Volume 96.8 fL (83.0-100.0); Mean Platelet Volume 8.8 fL (9.4-12.4); Monocytes # 0.7 K/mcL (0.0-1.3); Neutrophils # 5.8 K/mcL (1.6-8.9); Nucleated Red Blood Cells 1.1 /100 WBC (0); Platelet Count 229 K/mcL (140-400); Red Blood Count 2.85 M/mcL (3.82-4.97); Red Cell Distribution Width 16.9 % (11.5-14.5); Segmented Neutrophils % 75.7 %
[2017-04-01 05:17] LABS: INR 1.3; Prothrombin Time 14.4 Seconds (9.4-12.1)
[2017-04-01 05:30] LABS: Calcium 7.8 mg/dL (8.6-10.8); Magnesium 1.6 mg/dL (1.6-2.6); Phosphorous 6.2 mg/dL (2.3-4.7); Potassium 4.1 mEq/L (3.5-4.5)
[2017-04-01] MEDS: Ipratropium 1 PUFF INHALER IH SCH ×4 (05:34→21:02)
[2017-04-01] MEDS: Levothyroxine 25 MCG TABLET PO SCH (06:41)
[2017-04-01] MEDS: Pantoprazole 40 MG VIAL IVP SCH (06:41)
[2017-04-01] MEDS ORDERED: 0.9 % Sodium Chloride 250 ML IVC PRN (07:48)
[2017-04-01] MEDS ORDERED: *HR* Heparin 10,000 UNIT/10 ML VIAL IV PRN (07:48)
[2017-04-01] MEDS: Insulin LISPRO 300 UNITS/3 ML VIAL SQ SCH ×4 (08:27→22:29)
[2017-04-01] MEDS: Gabapentin 100 MG CAPSULE PO SCH ×2 (08:48→22:28)
[2017-04-01] MEDS: Fenofibrate 54 MG TABLET PO SCH (08:48)
[2017-04-01] MEDS: acetaZOLAMIDE 250 MG TABLET PO SCH (08:48)
[2017-04-01] MEDS: Metoprolol XL (24 HR) Succ 50 MG TAB.ER.24H PO SCH ×2 (08:49→22:26)
[2017-04-01] MEDS: Chlorhexidine Rinse 15 ML MOUTHWASH MM SCH ×2 (08:49→22:29)
[2017-04-01] MEDS: cefTRIAXone 2,000 MG in Water for inj. (sterile) 20 ML IVP SCH (08:49)
[2017-04-01] MEDS: Venlafaxine XR (24 HR) 37.5 MG CAP.ER.24H PO SCH (08:49)
[2017-04-01] MEDS: Nystatin POWDER 30 GM BOTTLE TP SCH ×3 (08:50→22:28)
[2017-04-01] MEDS: Artificial Tears SOLN 15 ML BOTTLE OP SCH ×3 (08:50→22:28)
[2017-04-01] MEDS ORDERED: Magnesium Sulfate 2 GM in D5% in Water 100 ML IVPB ONE (08:54)
[2017-04-01] MEDS ORDERED: 0.9 % Sodium Chloride 1,000 ML ONE (09:04)
[2017-04-01] MEDS: Budesonide/Formoterol 160/4.5 MDI IH SCH ×2 (10:00→21:03)
--- NOTE | 2017-04-01 10:26 | Nephrology Progress Note ---
Date of Encounter: 04/01/17 Time of Encounter: 09:30 - Assessment and Plan (1) End stage chronic kidney disease Current Visit: Yes Status: Acute Plan for HD today to place her into a M/W/F dialysis schedule. I'll be available this weekend, but the next HD would be planned for Tuesday. Thank you. (2) Morbid obesity Current Visit: Yes Status: Chronic Subjective Principal diagnosis: A Flutter Interval history: Pt was s/e. She has a trach and so was not able to provide any subjective history. I reviewed the hand-off information from my colleague Dr. Jaffe. No new major events overnight. Objective - Vital Signs Vital signs: Vital Signs Temp Pulse Resp BP Pulse Ox 04/01/17 10:04 12 130/72 96 04/01/17 09:00 117 04/01/17 08:05 99.9 F H 117 12 130/72 96 04/01/17 07:29 96 04/01/17 06:42 26 98 04/01/17 05:35 26 124/94 98 04/01/17 03:32 18 124/90 98 04/01/17 03:08 100.4 F H 118 19 134/101 99 04/01/17 01:07 19 146/69 97 03/31/17 23:10 99.1 F 115 17 146/69 97 03/31/17 21:47 17 117/60 97 03/31/17 19:37 99.3 F 105 17 117/60 96 03/31/17 17:05 118 19 137/59 100 03/31/17 16:31 99.7 F H 113 20 120/56 98 03/31/17 16:09 22 99 03/31/17 12:32 98.5 F 22 135/58 03/31/17 11:50 106/53 03/31/17 11:35 154/68 03/31/17 11:20 158/51 03/31/17 11:10 98.3 F 123 22 158/51 03/31/17 11:05 126/43 03/31/17 10:53 98.7 F 122 20 131/55 03/31/17 10:50 96/41 03/31/17 10:38 98.5 F 120 20 122/51 03/31/17 10:35 122/54 03/31/17 10:34 98.3 F 118 20 122/51 Intake and Output 03/31/17 04/01/17 04/01/17 23:59 07:59 15:59 Intake Total 240 / 240 237 / 237 Output Total 250 / 250 250 / 250 0 / 0 Balance -10 / -10 -250 / -250 237 / 237 Intake: Oral 240 / 240 237 / 237 Output: Catheter 250 / 250 250 / 250 0 / 0 Urethral (Isbell) 250 / 250 0 / 0 Other: Meal Dinner Percent of Meal Consumed 80% Blood Glucose* 171 134 - General Appearance General appearance: Present: well-developed, well-nourished, appears started age , obese EENT: Present: PERRL, mucous membranes moist Additional Comments: trach noted, Some chin abrasions noted as well Neck: Present: supple Respiratory: Present: course breath sounds Cardiology: Present: edema (nontense ankle edema (somely adiposity)), regular rate, regular rhythm, normal S1, normal S2 Dialysis Vascular Access: Venous Catheter (Right Permacath with dressing in place) Gastrointestinal: Present: normoactive bowel sounds, no tenderness, no guarding , obese Integumentary: Present: warm and dry Neurologic: Present: no focal deficit, no asterixis, alert and oriented x3 Musculoskeletal: Present: no erythema, no cyanosis, no clubbing Psychiatric: Present: mood/affect appropriate, cooperative - Lab 04/02/17 05:01 04/02/17 05:01 Most recent lab results Calcium 7.8 mg/dL (8.6-10.8) L 04/01/17 04:40 Phosphorus 6.2 mg/dL (2.3-4.7) H 04/01/17 04:40 Magnesium 1.6 mg/dL (1.6-2.6) 04/01/17 04:40 Consult Discharge Plan - Plan Referrals: Ender Hodge MD [Primary Care Provider] - Chioma Ramos MD [Partnered Physician] - (SENT WEB REQUEST ON 03-31-17 @ [id number])
--- NOTE | 2017-04-01 10:57 | Internal Med Progress Note ---
<Nhung Tyson - Last Filed: 04/01/17 10:54> Date of Encounter: 04/01/17 Time of Encounter: 10:54 - Assessment and plan (1) Anemia Current Visit: Yes Status: Acute Assessment and plan: Hg today 8.2 s/p transfusion of 6 units prbc EGD 03/31 showed normal esophagus, normal stomach, duodenitis. colonoscopy 03/31 showed 8mm non bleeding polyp in sigmoid colon, normal ileum. there was diverticulosis of ascending colon. pathology results pending. no source of bleeding identified. iron: 35, ferritin 274, B12 625, folate 5.7 Plan: folate supplement epo per nephro in process of getting outpatient dialysis set up. may be discharged when this is set up. Qualifiers: Anemia type: iron deficiency Iron deficiency anemia type: chronic blood loss Qualified Code(s): D50.0 - Iron deficiency anemia secondary to blood loss (chronic) (2) Sepsis Current Visit: Yes Status: Resolved Assessment and plan: resolved. Qualifiers: Sepsis type: Escherichia coli Qualified Code(s): A41.51 - Sepsis due to Escherichia coli [E. coli] (3) UTI (urinary tract infection) Current Visit: Yes Status: Acute Assessment and plan: urine culture positive for E.Coli, pansensitive Plan: continue rocephin, day 5-last day Qualifiers: Urinary tract infection type: acute cystitis Hematuria presence: without hematuria Qualified Code(s): N30.00 - Acute cystitis without hematuria (4) ESRD (end stage renal disease) Current Visit: Yes Status: Acute Assessment and plan: s/p placement of permacath 03/31 dialysis per nephro. outpatient dialysis being set up. (5) Diabetes mellitus Current Visit: Yes Status: Acute Assessment and plan: continue basal with medium dose sliding scale/ACHS accuchecks. Qualifiers: Diabetes mellitus type: type 2 Diabetes mellitus complication status: with kidney complications Diabetes mellitus complication detail: with chronic kidney disease Diabetes mellitus detention insulin use: with detention use Chronic kidney disease stage: on chronic dialysis Qualified Code(s): E11.22 - Type 2 diabetes mellitus with diabetic chronic kidney disease; N18.6 - End stage renal disease; Z99.2 - Dependence on renal dialysis; Z99.2 - Dependence on renal dialysis; Z99.2 - Dependence on renal dialysis; N18.6 - End stage renal disease; N18.6 - End stage renal disease; N18.6 - End stage renal disease ; 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 continue home meds. Qualifiers: COPD type: emphysema Emphysema type: other Qualified Code(s): J43.8 - Other emphysema (7) Atrial flutter, chronic Current Visit: Yes Status: Acute Assessment and plan: continue metoprolol for rate control, with IV metoprolol PRN coumadin (8) Hyperkalemia Current Visit: Yes Status: Resolved Assessment and plan: resolved (9) DVT prophylaxis Current Visit: No Status: Acute Assessment and plan: resume coumadin-pharmacy dosing - Subjective Interval history: 51F evaluated at bedside. she denies any new complaints today. - Constitutional Vitals: Temp Pulse Resp BP Pulse Ox 99.9 F H 117 12 130/72 95 04/01/17 08:05 04/01/17 09:00 04/01/17 10:04 04/01/17 10:04 04/01/17 10:43 General appearance: Present: A&O X 3, morbidly obese, pleasant, no acute distress, answers questions appropriately - Head Head exam: Present: atraumatic, normocephalic - Neck Additional comments: tracheostomy in place - Respiratory Respiratory exam: Present: decreased breath sounds - Cardiovascular Cardiovascular exam: Present: distant heart sounds - GI/Abdominal GI/Abdominal exam: Present: distended. Absent: tenderness - Extremities Exam Extremities exam: Present: pedal edema (+1 bilateral lower extremity pitting edema. ). Absent: cyanotic - Neurological Exam Neurological exam: Present: alert, oriented X3 - Psychiatric Psychiatric exam: Present: normal affect, normal mood Internal Medicine: Result - Labs CBC & Chem 7: 04/01/17 04:40 04/01/17 04:40 Labs: Short CBC 04/01/17 Range/Units 04:40 WBC 7.6 (4.3-11.1) K/mcL Hgb 8.3 L (11.5-15.4) g/dL Hct 27.6 L (35.3-44.9) % Plt Count 229 (140-400) K/mcL Neutrophils # 5.8 (1.6-8.9) K/mcL BMP 04/01/17 04:40 Sodium 140 Potassium 4.1 Chloride 101 Carbon Dioxide 22 BUN 69 H D Creatinine 4.76 H Glucose 158 H Calcium 7.8 L - ABG Interpretation ABG results: PT/INR, D-dimer PT 14.4 Seconds (9.4-12.1) H 04/01/17 04:40 - Impressions Impressions Guidance Needle Placement Ultrasound 03/31/17 00:00 IMPRESSION: Ultrasound and fluoroscopic guided placement of a tunneled right IJ hemodialysis catheter. The catheter is appropriately positioned and ready for use. D/ / Kamari Waldrop MD / Kamari Waldrop MD Interpreting Provider: Kamari Waldrop MD Insertion Tunneled Catheter 03/31/17 00:00 IMPRESSION: Ultrasound and fluoroscopic guided placement of a tunneled right IJ hemodialysis catheter. The catheter is appropriately positioned and ready for use. D/ / Kamari Waldrop MD / Kamari Waldrop MD Interpreting Provider: Kamari Waldrop MD Consult Discharge Plan - Plan Referrals: Ender Hodge MD [Primary Care Provider] - Chioma Ramos MD [Partnered Physician] - (SENT WEB REQUEST ON 03-31-17 @ [id number]) <Sancho Rubio - Last Filed: 04/01/17 15:01> Date of Encounter: 04/01/17 - Assessment and plan (1) UTI (urinary tract infection) Current Visit: Yes Status: Acute Qualifiers: Urinary tract infection type: acute cystitis Hematuria presence: without hematuria Qualified Code(s): N30.00 - Acute cystitis without hematuria (2) [id number] kidney injury Current Visit: Yes Status: Acute Qualifiers: Acute renal failure type: unspecified Chronic kidney disease stage: on chronic dialysis Qualified Code(s): N17.9 - Acute kidney failure, unspecified ; N18.9 - Chronic kidney disease, unspecified; N18.9 - Chronic kidney disease, unspecified; Z99.2 - Dependence on renal dialysis; Z99.2 - Dependence on renal dialysis; Z99.2 - Dependence on renal dialysis; Z99.2 - Dependence on renal dialysis (3) Chronic respiratory failure Current Visit: Yes Status: Acute Qualifiers: Respiratory failure complication: hypoxia and hypercapnia Qualified Code(s) : J96.11 - Chronic respiratory failure with hypoxia; J96.12 - Chronic respiratory failure with hypercapnia; J96.12 - Chronic respiratory failure with hypercapnia; J96.12 - Chronic respiratory failure with hypercapnia (4) Anemia Current Visit: Yes Status: Acute Qualifiers: Anemia type: iron deficiency Iron deficiency anemia type: chronic blood loss Qualified Code(s): D50.0 - Iron deficiency anemia secondary to blood loss (chronic) (5) COPD (chronic obstructive pulmonary disease) Current Visit: No Status: Acute Qualifiers: COPD type: emphysema Emphysema type: other Qualified Code(s): J43.8 - Other emphysema (6) Diabetes mellitus Current Visit: Yes Status: Acute Qualifiers: Diabetes mellitus type: type 2 Diabetes mellitus complication status: with kidney complications Diabetes mellitus complication detail: with chronic kidney disease Diabetes mellitus detention insulin use: with detention use Chronic kidney disease stage: on chronic dialysis Qualified Code(s): E11.22 - Type 2 diabetes mellitus with diabetic chronic kidney disease; N18.6 - End stage renal disease; Z99.2 - Dependence on renal dialysis; Z99.2 - Dependence on renal dialysis; Z99.2 - Dependence on renal dialysis; N18.6 - End stage renal disease; N18.6 - End stage renal disease; N18.6 - End stage renal disease ; Z79.4 - FDC (current) use of insulin; Z79.4 - FDC (current) use of insulin; 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; 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 of 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; Z99.2 - Dependence on renal dialysis (7) Chronic diastolic heart failure Current Visit: Yes Status: Chronic (8) Morbid obesity Current Visit: Yes Status: Chronic (9) Atrial flutter Current Visit: Yes Status: Acute Qualifiers: Atrial flutter type: typical Qualified Code(s): I48.3 - Typical atrial flutter - Constitutional Vitals: Temp Pulse Resp BP Pulse Ox 100.7 F H 118 15 124/69 95 04/01/17 11:56 04/01/17 12:26 04/01/17 11:56 04/01/17 11:56 04/01/17 11:56 Internal Medicine: Result - Labs CBC & Chem 7: 04/01/17 04:40 04/01/17 04:40 Labs: Short CBC 04/01/17 Range/Units 04:40 WBC 7.6 (4.3-11.1) K/mcL Hgb 8.3 L (11.5-15.4) g/dL Hct 27.6 L (35.3-44.9) % Plt Count 229 (140-400) K/mcL Neutrophils # 5.8 (1.6-8.9) K/mcL BMP 04/01/17 04:40 Sodium 140 Potassium 4.1 Chloride 101 Carbon Dioxide 22 BUN 69 H D Creatinine 4.76 H Glucose 158 H Calcium 7.8 L - ABG Interpretation ABG results: PT/INR, D-dimer PT 14.4 Seconds (9.4-12.1) H 04/01/17 04:40 - Attending Attestation I examined this patient and my medical decision-making was reviewed with the Resident Physician on 04/01/17. I agree with the documented findings, disposition and treatment plan as described except to the extent set forth below. Ms Denson is currently admitted for ESRD starting dialysis and anemia. She remains moderate to high risk due to potential for worsening respiratory status. Ms Denson has had a low grade temp over the last 24 hours. No specific source noted. She denies pain at this time. No diarrhea (except for prep). Has been on abx for UTI. Exam Alert. Comfortable Mucus membranes dry Heart irreg Lungs clear anteriorly Abd soft I/P 1. Low grade fever - blood cx ordered. Will give a dose of IV Vanc after cx obtained. 2. ESRD 3. Trach/vent Further diagnoses and plan as above
[2017-04-01] MEDS: Folic Acid 1 MG TABLET PO SCH (12:14)
[2017-04-01] MEDS: Acetaminophen 325 MG TABLET PO PRN ×2 (12:17→20:25)
[2017-04-01] MEDS: *HR* OxyCODONE Immed Rel 5 MG TABLET PO PRN (13:16)
[2017-04-01] MEDS ORDERED: Vancomycin 2,000 MG in D5% in Water 250 ML IVPB ONE (15:04)
[2017-04-01] MEDS ORDERED: Vancomycin 2,000 MG in D5% in Water 500 ML IVPB ONE (18:00)
[2017-04-01] MEDS ORDERED: *HR* Warfarin 3 MG TABLET PO ONE (18:00)
[2017-04-01] MEDS ORDERED: Warfarin perPT PO PRN (18:00)
[2017-04-01] MEDS: Insulin DETEMIR 100 UNIT/ML X5UNITS SQ SCH (22:29)
[2017-04-02] MEDS: Ipratropium 1 PUFF INHALER IH SCH ×4 (04:56→21:54)
[2017-04-02 05:23] LABS: Basophils # 0.1 K/mcL (0.0-0.2); Basophils % 0.6 %; Eosinophils # 0.4 K/mcL (0.0-0.6); Eosinophils % 4.5 %; Hemoglobin 8.6 g/dL (11.5-15.4); Immature Granulocytes % 1.1 % (0-4); Lymphocytes # 0.6 K/mcL (0.6-4.6); Lymphocytes % 6.7 %; Mean Corpuscular HGB Conc 29.7 g/dL (31.6-35.5); Mean Corpuscular Hemoglobin 28.9 pg (28.0-33.3); Mean Corpuscular Volume 97.3 fL (83.0-100.0); Monocytes # 0.8 K/mcL (0.0-1.3); Monocytes % 9.6 %; Neutrophils # 6.4 K/mcL (1.6-8.9); Nucleated Red Blood Cells 0.7 /100 WBC (0); Platelet Count 230 K/mcL (140-400); Red Blood Count 2.98 M/mcL (3.82-4.97); Red Cell Distribution Width 16.3 % (11.5-14.5); Segmented Neutrophils % 77.5 %
[2017-04-02] MEDS: Levothyroxine 25 MCG TABLET PO SCH (05:27)
[2017-04-02] MEDS: Acetaminophen 325 MG TABLET PO PRN (05:27)
[2017-04-02 05:32] LABS: INR 1.3; Prothrombin Time 14.2 Seconds (9.4-12.1)
[2017-04-02 05:38] LABS: Calcium 8.3 mg/dL (8.6-10.8); Potassium 3.9 mEq/L (3.5-4.5)
[2017-04-02] MEDS ORDERED: Vancomycin 2,000 MG in D5% in Water 500 ML IVPB SCH (08:00)
[2017-04-02] MEDS: Piperacillin/Tazobactam 3.375 GM/200 ML BAG IVPB SCH ×3 (08:30→23:29)
[2017-04-02] MEDS: Insulin LISPRO 300 UNITS/3 ML VIAL SQ SCH ×4 (09:12→20:39)
[2017-04-02] MEDS: Nystatin POWDER 30 GM BOTTLE TP SCH ×3 (09:13→20:50)
[2017-04-02] MEDS: Chlorhexidine Rinse 15 ML MOUTHWASH MM SCH ×2 (09:14→20:38)
[2017-04-02] MEDS: Artificial Tears SOLN 15 ML BOTTLE OP SCH ×3 (09:14→20:40)
[2017-04-02] MEDS: Venlafaxine XR (24 HR) 37.5 MG CAP.ER.24H PO SCH (09:15)
[2017-04-02] MEDS: Metoprolol XL (24 HR) Succ 50 MG TAB.ER.24H PO SCH ×2 (09:16→20:38)
[2017-04-02] MEDS: Folic Acid 1 MG TABLET PO SCH (09:16)
[2017-04-02] MEDS: Fenofibrate 54 MG TABLET PO SCH (09:16)
[2017-04-02] MEDS: Gabapentin 100 MG CAPSULE PO SCH ×2 (09:16→20:38)
[2017-04-02] MEDS: acetaZOLAMIDE 250 MG TABLET PO SCH (09:17)
--- NOTE | 2017-04-02 09:33 | Internal Med Progress Note ---
Date of Encounter: 04/02/17 Time of Encounter: 09:33 - Assessment and plan (1) Fever Current Visit: Yes Status: Acute Assessment and plan: Pt with fever last 24 hours No leukocytosis No wounds, IV sites OK, no diarrhea Repeat CXR Blood cx done yesterday Start broad spectrum abx and antifungal pending culture results. Repeat UA and culture. Qualifiers: Fever type: unspecified Qualified Code(s): R50.9 - Fever, unspecified (2) UTI (urinary tract infection) Current Visit: Yes Status: Acute Assessment and plan: Completed course of Rocephin for UTI. Qualifiers: Urinary tract infection type: acute cystitis Hematuria presence: without hematuria Qualified Code(s): N30.00 - Acute cystitis without hematuria (3) Jrvix-gp-pojbwia kidney injury Current Visit: Yes Status: Acute Assessment and plan: Pt now on chronic dialysis through permacath. Plan per renal service. Qualifiers: Acute renal failure type: unspecified Chronic kidney disease stage: on chronic dialysis Qualified Code(s): N17.9 - Acute kidney failure, unspecified ; N18.9 - Chronic kidney disease, unspecified; N18.9 - Chronic kidney disease, unspecified; Z99.2 - Dependence on renal dialysis; Z99.2 - Dependence on renal dialysis; Z99.2 - Dependence on renal dialysis; Z99.2 - Dependence on renal dialysis (4) Chronic respiratory failure Current Visit: Yes Status: Acute Assessment and plan: Chronic trach/vent. CXR today due to fever. Qualifiers: Respiratory failure complication: hypoxia and hypercapnia Qualified Code(s) : J96.11 - Chronic respiratory failure with hypoxia; J96.12 - Chronic respiratory failure with hypercapnia; J96.12 - Chronic respiratory failure with hypercapnia; J96.12 - Chronic respiratory failure with hypercapnia (5) Anemia Current Visit: Yes Status: Acute Assessment and plan: H/H stable today Having some vaginal bleeding today. Will recheck tomorrow Qualifiers: Anemia type: iron deficiency Iron deficiency anemia type: chronic blood loss Qualified Code(s): D50.0 - Iron deficiency anemia secondary to blood loss (chronic) (6) COPD (chronic obstructive pulmonary disease) Current Visit: No Status: Acute Assessment and plan: not in exacerbation. continue home meds. Qualifiers: COPD type: emphysema Emphysema type: other Qualified Code(s): J43.8 - Other emphysema (7) Diabetes mellitus Current Visit: Yes Status: Acute Assessment and plan: continue basal with medium dose sliding scale/ACHS accuchecks. Qualifiers: Diabetes mellitus type: type 2 Diabetes mellitus complication status: with kidney complications Diabetes mellitus complication detail: with chronic kidney disease Diabetes mellitus retirement insulin use: with long term acute care registered nurse use Chronic kidney disease stage: on chronic dialysis Qualified Code(s): E11.22 - Type 2 diabetes mellitus with diabetic chronic kidney disease; N18.6 - End stage renal disease; N18.6 - End stage renal disease; N18.6 - End stage renal disease; N18.6 - End stage renal disease; Z79.4 - detention (current) use of insulin; Z79.4 - predatory animal exterminator (current) use of insulin; Z79.4 - detention (current ) use of insulin; Z79.4 - predatory animal exterminator (current) use of insulin; Z99.2 - Dependence on renal dialysis; Z99.2 - Dependence on renal dialysis; Z99.2 - Dependence on renal dialysis; Z99.2 - Dependence on renal dialysis (8) Chronic diastolic heart failure Current Visit: Yes Status: Chronic Assessment and plan: Aysmptomatic at this time. (9) Morbid obesity Current Visit: Yes Status: Chronic (10) Atrial flutter Current Visit: Yes Status: Acute Assessment and plan: Rate controlled at this time. Qualifiers: Atrial flutter type: typical Qualified Code(s): I48.3 - Typical atrial flutter - Subjective Interval history: Ms Denson is currently admitted for ESRD starting dialysis and anemia. She has had a fever over the last 24 hours. She remains moderate to high risk due to potential for worsening clinical status. Ms Denson has had a fever over the last 24 hours. She denies new issues - no new pain, SOB or other symptoms. No diarrhea. Pain in skin folds from yeast. No new wounds or red IV sites. Some purulent sputum but chronic. - Constitutional Vitals: Temp Pulse Resp BP Pulse Ox 101.7 F H 118 17 127/65 97 04/02/17 07:15 04/02/17 07:15 04/02/17 07:15 04/02/17 07:15 04/02/17 07:15 General appearance: Present: A&O X 3, morbidly obese, pleasant, answers questions appropriately - Head Head exam: Present: atraumatic, normocephalic - Eye Eye exam: Present: EOMI, conjuntiva pink - Respiratory Respiratory exam: Present: decreased breath sounds, CTAB - Cardiovascular Cardiovascular exam: Present: irregular rhythm, tachycardia - GI/Abdominal GI/Abdominal exam: Present: soft. Absent: tenderness - Extremities Exam Extremities exam: Present: tenderness, warm Additional comments: Tender in folds. - Neurological Exam Neurological exam: Present: alert - Skin Skin exam: Present: excoriation, warm Internal Medicine: Result - Labs CBC & Chem 7: 04/02/17 05:01 04/02/17 05:01 Labs: Short CBC 04/02/17 Range/Units 05:01 WBC 8.3 (4.3-11.1) K/mcL Hgb 8.6 L (11.5-15.4) g/dL Hct 29.0 L (35.3-44.9) % Plt Count 230 (140-400) K/mcL Neutrophils # 6.4 (1.6-8.9) K/mcL BMP 04/02/17 05:01 Sodium 138 Potassium 3.9 Chloride 100 Carbon Dioxide 25 BUN 44 H D Creatinine 4.15 H Glucose 199 H Calcium 8.3 L - ABG Interpretation ABG results: PT/INR, D-dimer PT 14.2 Seconds (9.4-12.1) H 04/02/17 05:01 Consult Discharge Plan - Plan Referrals: Ender Hodge MD [Primary Care Provider] - Chioma Ramos MD [Partnered Physician] - (SENT WEB REQUEST ON 03-31-17 @ [id number])
[2017-04-02] MEDS: Micafungin 100 MG in 0.9 % Sodium Chloride Mini Bag 100 ML IVPB SCH (11:00)
[2017-04-02] MEDS: Budesonide/Formoterol 160/4.5 MDI IH SCH ×2 (11:12→21:54)
--- NOTE | 2017-04-02 13:08 | Nephrology Progress Note ---
Date of Encounter: 04/02/17 Time of Encounter: 12:05 - Assessment and Plan (1) End stage chronic kidney disease Current Visit: Yes Status: Acute She has completed 4 days of consecutive HD as of yesterday. So no need for further HD today. Will tentatively plan for HD on Tuesday. Mcc, with her obesity and hypervolemia, I'd recommend challenging her dry weight with fluid removal. Obesity/chronic respiratory failure/etc: as per primary Thank you. (2) Morbid obesity Current Visit: Yes Status: Chronic As per primary (3) Chronic respiratory failure Current Visit: Yes Status: Acute With trach. As per primary. Of note, depending upon to where she is discharged, if it's [place], then only Dr. Weinberg is available at that unit, and he would have to be involved just before discharge. Qualifiers: Respiratory failure complication: hypoxia and hypercapnia Qualified Code(s) : J96.11 - Chronic respiratory failure with hypoxia; J96.12 - Chronic respiratory failure with hypercapnia; J96.12 - Chronic respiratory failure with hypercapnia; J96.12 - Chronic respiratory failure with hypercapnia Subjective Principal diagnosis: A Flutter Interval history: Pt was S/E. No new major events overnight. She has a chronic trach, thus limiting subjective history. Objective - Vital Signs Vital signs: Vital Signs Temp Pulse Resp BP Pulse Ox 04/02/17 11:35 100.7 F H 18 04/02/17 11:31 100.7 F H 112 19 114/61 99 04/02/17 11:14 18 127/65 96 04/02/17 09:45 100.0 F H 118 17 127/65 97 04/02/17 07:15 101.7 F H 118 17 127/65 97 04/02/17 05:24 100.5 F H 04/02/17 04:56 18 100 04/02/17 03:22 118 18 147/74 98 04/02/17 00:41 99.4 F 118 20 148/89 04/02/17 00:23 16 98 04/01/17 22:49 99.8 F H 04/01/17 21:05 22 144/85 96 04/01/17 19:45 18 97 04/01/17 19:16 101.6 F H 18 151/67 04/01/17 19:00 141/54 04/01/17 18:45 135/57 04/01/17 18:30 143/60 04/01/17 18:15 138/57 04/01/17 18:00 130/56 04/01/17 17:45 132/61 04/01/17 17:30 135/54 04/01/17 17:15 168/62 04/01/17 17:00 138/55 04/01/17 16:45 145/53 04/01/17 16:30 136/65 04/01/17 16:15 141/57 04/01/17 16:00 135/65 04/01/17 15:45 167/89 04/01/17 15:30 100.7 F H 18 139/68 04/01/17 15:12 141/57 04/01/17 15:00 100.3 F H 118 19 144/85 98 Intake and Output 04/01/17 04/02/17 04/02/17 23:59 07:59 15:59 Intake Total 360 / 360 500 / 500 500 / 500 Output Total 3630 / 3630 Balance -3270 / -3270 500 / 500 500 / 500 Intake: IV Fluids 500 / 500 500 / 500 Vancocin 2,000 MG In Dextrose 5 500 / 500 500 / 500 % 500 ML @ 250 mls/hr IVPB Q12H [facility] Rx#:[id number] Oral 360 / 360 Output: Urine 30 / 30 Total Dialysis (HD) Output 3600 / 3600 Other: Meal Dinner Percent of Meal Consumed 100% Blood Glucose* 195 172 229 Hemodialysis Net Fluid Removed 3000 (mL) - General Appearance Exam: General appearance: Present: well-developed, well-nourished, appears started age , obese EENT: Present: PERRL, mucous membranes moist Additional Comments: trach noted, Some chin abrasions noted as well Neck: Present: supple Respiratory: Present: course breath sounds Cardiology: Present: edema (nontense ankle edema (somely adiposity)), regular rate, regular rhythm, normal S1, normal S2 Dialysis Vascular Access: Venous Catheter (Right Permacath with dressing in place) Gastrointestinal: Present: normoactive bowel sounds, no tenderness, no guarding , obese Integumentary: Present: warm and dry Neurologic: Present: no focal deficit, no asterixis, alert and oriented x3 Musculoskeletal: Present: no erythema, no cyanosis, no clubbing Psychiatric: Present: mood/affect appropriate, cooperative - Lab 04/02/17 05:01 04/02/17 05:01 Most recent lab results Calcium 8.3 mg/dL (8.6-10.8) L 04/02/17 05:01 Phosphorus 6.2 mg/dL (2.3-4.7) H 04/01/17 04:40 Magnesium 1.6 mg/dL (1.6-2.6) 04/01/17 04:40 Consult Discharge Plan - Plan Referrals: Ender Hodge MD [Primary Care Provider] - Chioma Ramos MD [Partnered Physician] - (SENT WEB REQUEST ON 03-31-17 @ [id number])
[2017-04-02 16:11] LABS: Bilirubin,Urine Moderate (Negative); Blood,Urine Large (Negative); Clarity,Urine Turbid (Clear); Color,Urine Dark Yellow (Yellow); Glucose,Urine (UA) Normal (Normal); Ketones,Urine Trace mg/dL (Negative); Leukocyte Esterase,Urine Small (Negative); Nitrite,Urine Negative (Negative); PH,Urine 5.5 pH Units (5.0-8.0); Protein,Urine 100 mg/dL (Neg-Trace); Specific Gravity,Urine 1.028 (1.010-1.025); Urobilinogen,Urine Normal (Normal)
[2017-04-02 16:11] LABS: Adenovirus Not Detected (Not Detect); Bordetella Pertussis Not Detected (Not Detect); Chlamydophila pneumoniae Not Detected (Not Detect); Coronavirus 229E Not Detected (Not Detect); Coronavirus HKU1 Not Detected (Not Detect); Coronavirus NL63 Not Detected (Not Detect); Coronavirus OC43 Not Detected (Not Detect); Human Metapneumovirus Not Detected (Not Detect); Human Rhinovirus/Enterovirus Not Detected (Not Detect); Influenza A Subtype 2009 H1 Not Detected (Not Detect); Influenza A Untypeable Not Detected (Not Detect); Influenza B Not Detected (Not Detect); Mycoplasma pneumoniae Not Detected (Not Detect); Parainfluenza Virus 1 Not Detected (Not Detect); Parainfluenza Virus 2 Not Detected (Not Detect); Parainfluenza Virus 3 Not Detected (Not Detect); Parainfluenza Virus 4 Not Detected (Not Detect); Respiratory Syncytial Virus Not Detected (Not Detect)
[2017-04-02 16:13] LABS: Bacteria,Urine None Seen per hpf (None-Few); Squamous Epithelial Cell,Urine Many per lpf (None-Few); WBC,Urine 15-30 per hpf (0-3)
[2017-04-02 16:26] LABS: RBC,Urine 15-30 per hpf (0-3)
[2017-04-02 16:27] LABS: Amorphous Sediment,Urine Few (Few)
[2017-04-02 16:28] LABS: Transitional Epi Cells,Urine Few per hpf (None-Few)
[2017-04-02] MEDS ORDERED: *HR* Warfarin 3 MG TABLET PO ONE (18:00)
[2017-04-02] MEDS: Insulin DETEMIR 100 UNIT/ML X5UNITS SQ SCH (20:39)
[2017-04-02] MEDS: *HR* OxyCODONE Immed Rel 5 MG TABLET PO PRN (23:33)
[2017-04-03] MEDS: Ipratropium 1 PUFF INHALER IH SCH ×4 (04:58→22:37)
[2017-04-03] MEDS: Levothyroxine 25 MCG TABLET PO SCH (05:19)
[2017-04-03] MEDS: *HR* OxyCODONE Immed Rel 5 MG TABLET PO PRN ×2 (05:19→21:35)
[2017-04-03 05:27] LABS: INR 1.5; Prothrombin Time 15.8 Seconds (9.4-12.1)
--- NOTE | 2017-04-03 08:14 | Internal Med Progress Note ---
Date of Encounter: 04/03/17 Time of Encounter: 08:10 - Assessment and plan (1) Fever Current Visit: Yes Status: Acute Assessment and plan: Continues to have fever but lower overall No definite source identified On broad spectrum abx and antifungal at this time Will check for DVTs in light of anticoag being held. Qualifiers: Fever type: unspecified Qualified Code(s): R50.9 - Fever, unspecified (2) UTI (urinary tract infection) Current Visit: Yes Status: Resolved Assessment and plan: Currently on IV Zosyn and Vanc Completed course of Ceftriaxone Qualifiers: Urinary tract infection type: acute cystitis Hematuria presence: without hematuria Qualified Code(s): N30.00 - Acute cystitis without hematuria (3) Dgszf-rp-gheismh kidney injury Current Visit: Yes Status: Acute Assessment and plan: Pt now on chronic dialysis through permacath. Plan per renal service. Qualifiers: Acute renal failure type: unspecified Chronic kidney disease stage: on chronic dialysis Qualified Code(s): N17.9 - Acute kidney failure, unspecified ; N18.9 - Chronic kidney disease, unspecified; N18.9 - Chronic kidney disease, unspecified; Z99.2 - Dependence on renal dialysis; Z99.2 - Dependence on renal dialysis; Z99.2 - Dependence on renal dialysis; Z99.2 - Dependence on renal dialysis (4) Chronic respiratory failure Current Visit: Yes Status: Acute Assessment and plan: Chronic trach/vent. CXR had no infiltrate. Qualifiers: Respiratory failure complication: hypoxia and hypercapnia Qualified Code(s) : J96.11 - Chronic respiratory failure with hypoxia; J96.12 - Chronic respiratory failure with hypercapnia; J96.12 - Chronic respiratory failure with hypercapnia; J96.12 - Chronic respiratory failure with hypercapnia (5) Anemia Current Visit: Yes Status: Acute Assessment and plan: Recheck H/H tomorrow. Qualifiers: Anemia type: iron deficiency Iron deficiency anemia type: chronic blood loss Qualified Code(s): D50.0 - Iron deficiency anemia secondary to blood loss (chronic) (6) COPD (chronic obstructive pulmonary disease) Current Visit: No Status: Acute Assessment and plan: not in exacerbation. continue home meds. Qualifiers: COPD type: emphysema Emphysema type: other Qualified Code(s): J43.8 - Other emphysema (7) Diabetes mellitus Current Visit: Yes Status: Acute Assessment and plan: continue basal with medium dose sliding scale/ACHS accuchecks. Qualifiers: Diabetes mellitus type: type 2 Diabetes mellitus complication status: with kidney complications Diabetes mellitus complication detail: with chronic kidney disease Diabetes mellitus half-way insulin use: with electrical apprentice use Chronic kidney disease stage: on chronic dialysis Qualified Code(s): E11.22 - Type 2 diabetes mellitus with diabetic chronic kidney disease; N18.6 - End stage renal disease; N18.6 - End stage renal disease; N18.6 - End stage renal disease; N18.6 - End stage renal disease; Z79.4 - injury/safety hazard assessment (current) use of insulin; Z79.4 - FPC (current) use of insulin; Z79.4 - FPC (current ) use of insulin; Z79.4 - FPC (current) use of insulin; Z99.2 - Dependence on renal dialysis; Z99.2 - Dependence on renal dialysis; Z99.2 - Dependence on renal dialysis; Z99.2 - Dependence on renal dialysis (8) Chronic diastolic heart failure Current Visit: Yes Status: Chronic Assessment and plan: Aysmptomatic at this time. (9) Morbid obesity Current Visit: Yes Status: Chronic (10) Atrial flutter Current Visit: Yes Status: Acute Assessment and plan: Rate controlled at this time. Qualifiers: Atrial flutter type: typical Qualified Code(s): I48.3 - Typical atrial flutter - Subjective Interval history: Ms Denson is currently admitted for ESRD starting dialysis and anemia. She remains moderate to high risk due to potential for worsening clinical status. Ms Denson continues to have fever but is overall less than yesterday. Cultures returning negative thus far. CXR neg for infiltrate. No diarrhea. No new potential sites of infection noted. - Constitutional Vitals: Temp Pulse Resp BP Pulse Ox 100.6 F H 120 18 124/79 96 04/03/17 07:42 04/03/17 07:42 04/03/17 07:42 04/03/17 07:42 04/03/17 07:42 General appearance: Present: A&O X 3, morbidly obese, answers questions appropriately - Head Head exam: Present: atraumatic, normocephalic - Eye Eye exam: Present: EOMI, conjuntiva pink - ENT ENT exam: Present: mucous membranes dry - Neck Additional comments: Catheter in R IJ. No erythema or drainage. - Respiratory Respiratory exam: Present: decreased breath sounds, rhonchi. Absent: rales, wheezes - Cardiovascular Cardiovascular exam: Present: irregular rhythm, tachycardia - GI/Abdominal GI/Abdominal exam: Present: normal bowel sounds, soft. Absent: tenderness - Extremities Exam Extremities exam: Present: tenderness, warm - Neurological Exam Neurological exam: Present: alert, oriented X3 - Skin Skin exam: Present: dry, warm. Absent: rash Internal Medicine: Result - Labs CBC & Chem 7: 04/02/17 05:01 04/02/17 05:01 Labs: Urine 04/02/17 Range/Units 15:45 Urine Color Dark Yellow (Yellow) Urine Clarity Turbid A (Clear) Urine pH 5.5 (5.0-8.0) pH Units Ur Specific [place] 1.028 H (1.010-1.025) Urine Protein 100 H (Neg-Trace) mg/dL Urine Glucose (UA) Normal (Normal) mg/dL - ABG Interpretation ABG results: PT/INR, D-dimer PT 15.8 Seconds (9.4-12.1) H 04/03/17 05:15 - Impressions Impressions Chest X-Ray 04/02/17 07:51 IMPRESSION: Interval placement of a double-lumen central catheter with tips at the cavoatrial junction. No pneumothorax. Cardiomegaly and moderate pulmonary edema suggesting moderate CHF. D/ / Mahendra Tellez MD / Mahendra Tellez MD Interpreting Provider: Mahendra Tellez MD Consult Discharge Plan - Plan Referrals: Ender Hodge MD [Primary Care Provider] - Chioma Ramos MD [Partnered Physician] - (SENT WEB REQUEST ON 03-31-17 @ [id number])
[2017-04-03] MEDS: Piperacillin/Tazobactam 3.375 GM/200 ML BAG IVPB SCH ×2 (08:43→15:44)
[2017-04-03] MEDS: Insulin LISPRO 300 UNITS/3 ML VIAL SQ SCH ×4 (08:43→21:53)
[2017-04-03] MEDS: Chlorhexidine Rinse 15 ML MOUTHWASH MM SCH ×2 (08:44→21:41)
[2017-04-03] MEDS: Fenofibrate 54 MG TABLET PO SCH (08:44)
[2017-04-03] MEDS: Venlafaxine XR (24 HR) 37.5 MG CAP.ER.24H PO SCH (08:44)
[2017-04-03] MEDS: Folic Acid 1 MG TABLET PO SCH (08:44)
[2017-04-03] MEDS: Metoprolol XL (24 HR) Succ 50 MG TAB.ER.24H PO SCH ×2 (08:44→21:39)
[2017-04-03] MEDS: acetaZOLAMIDE 250 MG TABLET PO SCH (08:45)
[2017-04-03] MEDS: Gabapentin 100 MG CAPSULE PO SCH ×2 (08:45→21:40)
[2017-04-03] MEDS: Artificial Tears SOLN 15 ML BOTTLE OP SCH ×3 (08:45→21:40)
[2017-04-03] MEDS: Nystatin POWDER 30 GM BOTTLE TP SCH ×3 (08:46→21:42)
[2017-04-03] MEDS: Micafungin 100 MG in 0.9 % Sodium Chloride Mini Bag 100 ML IVPB SCH (08:46)
[2017-04-03] MEDS: Budesonide/Formoterol 160/4.5 MDI IH SCH ×2 (10:16→22:36)
[2017-04-03] MEDS ORDERED: *HR* Warfarin 3 MG TABLET PO ONE (18:00)
[2017-04-03] MEDS: Insulin DETEMIR 100 UNIT/ML X5UNITS SQ SCH (21:41)
[2017-04-04] MEDS: Piperacillin/Tazobactam 3.375 GM/200 ML BAG IVPB SCH (00:15)
[2017-04-04] MEDS: Acetaminophen 325 MG TABLET PO PRN (04:41)
[2017-04-04] MEDS: Ipratropium 1 PUFF INHALER IH SCH ×3 (05:06→16:20)
[2017-04-04] MEDS: *HR* OxyCODONE Immed Rel 5 MG TABLET PO PRN ×3 (05:46→19:25)
[2017-04-04] MEDS: Levothyroxine 25 MCG TABLET PO SCH (05:46)
[2017-04-04 05:57] LABS: Hematocrit 29.4 % (35.3-44.9); Hemoglobin 8.7 g/dL (11.5-15.4); Mean Corpuscular HGB Conc 29.6 g/dL (31.6-35.5); Mean Corpuscular Hemoglobin 28.8 pg (28.0-33.3); Mean Corpuscular Volume 97.4 fL (83.0-100.0); Mean Platelet Volume 9.2 fL (9.4-12.4); Platelet Count 250 K/mcL (140-400); Red Blood Count 3.02 M/mcL (3.82-4.97); Red Cell Distribution Width 15.7 % (11.5-14.5)
[2017-04-04 06:03] LABS: INR 1.7; Prothrombin Time 18.9 Seconds (9.4-12.1)
[2017-04-04 06:17] LABS: Albumin 2.1 g/dL (3.5-5.0); Albumin/Globulin Ratio 0.5 (1.1-2.2); Bilirubin,Total 1.5 mg/dL (0.2-1.2); Globulin 4.5 g/dL (2.4-3.5); Potassium 4.2 mEq/L (3.5-4.5); Total Protein 6.6 g/dL (6.0-8.3)
[2017-04-04] MEDS ORDERED: 0.9 % Sodium Chloride 250 ML IVC PRN (06:24)
[2017-04-04] MEDS: Insulin LISPRO 300 UNITS/3 ML VIAL SQ SCH ×3 (08:31→18:36)
[2017-04-04] MEDS: Budesonide/Formoterol 160/4.5 MDI IH SCH (11:30)
--- NOTE | 2017-04-04 11:45 | Nephrology Progress Note ---
Date of Encounter: 04/04/17 Time of Encounter: 11:43 - Assessment and Plan (1) ESRD (end stage renal disease) Current Visit: Yes Status: Acute HD today, patient recently completed 4 consecutive days of HD last week. Tentatively planned for Tuesday dialysis schedule Recommend challenging her dry weight with fluid removal. lower extremity edema present today. ESRD may be related to the patient's reported chronic NSAID use over 20 years. She also reports chronic use of a PPI which new evidence showed a possible link to renal disease with use of PPI however clear cause and effect relationship has not been established. This was discussed with the patient. (2) Fever Current Visit: Yes Status: Acute Persistent. Source unknown. Patient may require transfer to a facility that has a CT scan that is capable of handling the patient's weight, as well as that has infectious disease services available. Further management per primary team. Qualifiers: Fever type: unspecified Qualified Code(s): R50.9 - Fever, unspecified (3) Morbid obesity Current Visit: Yes Status: Chronic As per primary. (4) Chronic respiratory failure Current Visit: Yes Status: Acute With tracheostomy. Further management per primary team. Depending on where the patient is discharged to, if she goes to [place] then only Dr. Agustin is available at that unit and will need to be involved prior to discharge. Qualifiers: Respiratory failure complication: hypoxia and hypercapnia Qualified Code(s) : J96.11 - Chronic respiratory failure with hypoxia; J96.12 - Chronic respiratory failure with hypercapnia; J96.12 - Chronic respiratory failure with hypercapnia; J96.12 - Chronic respiratory failure with hypercapnia Subjective Principal diagnosis: A Flutter Interval history: Patient seen and examined on dialysis. She has a chronic trach limiting history but she denies any new complaints at this time. Febrile overnight. Objective - Vital Signs Vital signs: Vital Signs Temp Pulse Resp BP Pulse Ox 04/04/17 11:30 19 97 04/04/17 10:55 149/65 04/04/17 10:40 126/70 04/04/17 10:25 136/55 04/04/17 10:10 126/58 04/04/17 09:55 148/68 04/04/17 09:40 124/67 04/04/17 09:25 115/92 04/04/17 09:10 111/58 04/04/17 08:55 140/63 04/04/17 08:40 134/71 04/04/17 08:25 116/75 04/04/17 08:10 101.0 F H 18 169/86 04/04/17 07:37 101.7 F H 120 20 114/65 100 04/04/17 05:07 21 99 04/04/17 04:22 102.8 F H 114 18 111/75 95 04/03/17 23:12 99.6 F 120 17 123/77 96 04/03/17 22:39 20 99 04/03/17 19:23 99.3 F 123 17 128/81 98 04/03/17 16:41 18 126/79 97 04/03/17 16:00 100.3 F H 118 18 145/40 100 Intake and Output 04/03/17 04/04/17 04/04/17 23:59 07:59 15:59 Intake Total 920 / 920 600 / 600 Output Total 0 / 0 Balance 920 / 920 600 / 600 Intake: IV Fluids 200 / 200 Zosyn Premix 3.375 GM/200 ML 3. 200 / 200 375 gm In 200 ml @ 50 mls/hr IVPB Q8H [facility] Rx#:[id number] Oral 720 / 720 0 / 0 Intake, Rinseback and Flushes 600 / 600 Output: Urine 0 / 0 Other: Meal Dinner Percent of Meal Consumed 100% Blood Glucose* 261 157 Hemodialysis Net Fluid Removed 2481 (mL) - General Appearance General appearance: Present: well-nourished, appears started age, obese, chronically ill EENT: Present: PERRL, mucous membranes moist Additional Comments: Trach present Neck: Present: supple Respiratory: Present: course breath sounds Cardiology: Present: no murmurs, edema (2+ lower extremity is bilaterally), regular rate, regular rhythm, normal S1, normal S2 Dialysis Vascular Access: Venous Catheter (Right upper chest, dressing in place) Gastrointestinal: Present: normoactive bowel sounds, no tenderness, no guarding Integumentary: Present: no rash, warm and dry Neurologic: Present: no focal deficit, alert and oriented x3 Musculoskeletal: Present: no erythema, no cyanosis, no clubbing Psychiatric: Present: mood/affect appropriate, cooperative - Lab 04/04/17 05:41 04/04/17 05:41 Most recent lab results Calcium 8.0 mg/dL (8.6-10.8) L 04/04/17 05:41 Phosphorus 6.2 mg/dL (2.3-4.7) H 04/01/17 04:40 Magnesium 1.6 mg/dL (1.6-2.6) 04/01/17 04:40 Consult Discharge Plan - Plan Referrals: Ender Hodge MD [Primary Care Provider] - Chioma Ramos MD [Partnered Physician] - (SENT WEB REQUEST ON 03-31-17 @ [id number])
[2017-04-04] MEDS ORDERED: 0.9 % Sodium Chloride 2,000 ML ONE (12:36)
[2017-04-04] MEDS: Artificial Tears SOLN 15 ML BOTTLE OP SCH ×2 (13:17→17:22)
[2017-04-04] MEDS: Venlafaxine XR (24 HR) 37.5 MG CAP.ER.24H PO SCH (13:18)
[2017-04-04] MEDS: acetaZOLAMIDE 250 MG TABLET PO SCH (13:19)
[2017-04-04] MEDS: Fenofibrate 54 MG TABLET PO SCH (13:19)
[2017-04-04] MEDS: Metoprolol XL (24 HR) Succ 50 MG TAB.ER.24H PO SCH (13:19)
[2017-04-04] MEDS: Nystatin POWDER 30 GM BOTTLE TP SCH ×2 (13:20→17:27)
[2017-04-04] MEDS: Gabapentin 100 MG CAPSULE PO SCH (13:20)
[2017-04-04] MEDS: Folic Acid 1 MG TABLET PO SCH (13:20)
[2017-04-04] MEDS ORDERED: *HR* Heparin 10,000 UNIT/10 ML VIAL IV PRN (13:20)
[2017-04-04] MEDS: Chlorhexidine Rinse 15 ML MOUTHWASH MM SCH (13:20)
[2017-04-04] MEDS: Micafungin 100 MG in 0.9 % Sodium Chloride Mini Bag 100 ML IVPB SCH (13:23)
--- NOTE | 2017-04-04 15:10 | Discharge Summary ---
<Flori Nieto - Last Filed: 04/04/17 15:40> Date of Encounter: 04/04/17 Time of Encounter: 14:00 - Discharge Diagnosis (1) Fever Priority: Primary Status: Acute Qualifiers: Fever type: due to other condition Qualified Code(s): R50.81 - Fever presenting with conditions classified elsewhere (2) Sepsis Priority: Secondary Status: Resolved Qualifiers: Sepsis type: Escherichia coli Qualified Code(s): A41.51 - Sepsis due to Escherichia coli [E. coli] (3) UTI (urinary tract infection) Priority: Secondary Status: Resolved Qualifiers: Urinary tract infection type: acute cystitis Hematuria presence: without hematuria Qualified Code(s): N30.00 - Acute cystitis without hematuria (4) End stage chronic kidney disease Priority: Secondary Status: Acute (5) Chronic respiratory failure Priority: Secondary Status: Acute Qualifiers: Respiratory failure complication: hypoxia and hypercapnia Qualified Code(s) : J96.11 - Chronic respiratory failure with hypoxia; J96.12 - Chronic respiratory failure with hypercapnia; J96.12 - Chronic respiratory failure with hypercapnia; J96.12 - Chronic respiratory failure with hypercapnia (6) Atrial flutter Priority: Secondary Status: Acute Qualifiers: Atrial flutter type: typical Qualified Code(s): I48.3 - Typical atrial flutter (7) Anemia Priority: Secondary Status: Acute Qualifiers: Anemia type: iron deficiency Iron deficiency anemia type: chronic blood loss Qualified Code(s): D50.0 - Iron deficiency anemia secondary to blood loss (chronic) (8) Chronic diastolic heart failure Priority: Secondary Status: Chronic (9) COPD (chronic obstructive pulmonary disease) Priority: Secondary Status: Acute Qualifiers: COPD type: emphysema Emphysema type: other Qualified Code(s): J43.8 - Other emphysema (10) Diabetes mellitus Priority: Secondary Status: Acute Qualifiers: Diabetes mellitus type: type 2 Diabetes mellitus complication status: with kidney complications Diabetes mellitus complication detail: with chronic kidney disease 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: with intermodal truck driver use Chronic kidney disease stage: on chronic dialysis Qualified Code(s): E11.22 - Type 2 diabetes mellitus with diabetic chronic kidney disease; N18.6 - End stage renal disease; Z99.2 - Dependence on renal dialysis; Z99.2 - Dependence on renal dialysis; Z99.2 - Dependence on renal dialysis; N18.6 - End stage renal disease; N18.6 - End stage renal disease; N18.6 - End stage renal disease ; Z79.4 - correction (current) use of insulin; Z79.4 - terminal makeup operator (current) use of insulin; Z79.4 - terminal makeup operator (current) use of insulin; Z79.4 - correction ( current) use of insulin; Z99.2 - Dependence on renal dialysis (11) Morbid obesity Priority: Secondary Status: Chronic - Discharge Medications Home Medications: AcetaZOLAMIDE [Diamox] 250 mg PO DAILY 12/04/14 [History] Acetaminophen [Tylenol] 500 mg PO Q6HR 12/04/14 [History] Budesonide/Formoterol 160/4.5 [Symbicort] 2 puff IH BID 12/04/14 [History] Calcitriol [Rocaltrol] 0.25 mcg PO DAILY 12/04/14 [History] Famotidine [Pepcid] 20 mg PO DAILY 12/04/14 [History] Gabapentin [Neurontin] 200 mg PO Q8H 12/04/14 [History] Glimepiride [Amaryl] 4 mg PO DAILY 12/04/14 [History] Ipratropium [ATROVENT Inhaler] 4 puff IH QID 12/04/14 [History] Lactulose 30 gm PO DAILY 12/04/14 [History] Levothyroxine [Synthroid] 200 mcg PO DAILY 12/04/14 [History] Linagliptin [Tradjenta] 5 mg PO DAILY 12/04/14 [History] Losartan [Cozaar] 25 mg PO DAILY 12/04/14 [History] Nitroglycerin 0.4 mg SL AD PRN 12/04/14 [History] OxyCODONE Immed Rel [Roxicodone 5 MG] 10 mg PO Q4HR PRN 12/04/14 [History] Pravastatin Sodium [Pravachol] 40 mg PO DAILY 12/04/14 [History] Venlafaxine XR (24 HR) [Effexor Xr] 112.5 mg PO DAILY 12/04/14 [History] Zolpidem [Ambien] 10 mg PO HS 12/04/14 [History] Artificial Tear Drops [Isopto Tears] 1 drop OP TID 12/25/14 [History] Bisacodyl [Dulcolax] 10 mg PO DAILY PRN 12/25/14 [History] Chlorhexidine Rinse 15 ml MM BID 12/25/14 [History] Multivitamin/Iron/Folic Acid [Centrum Complete Multivit Tab] 1 each PO DAILY 12/31 [History] guaiFENesin [Q-Tussin] 30 ml PO Q4H PRN 12/25/14 [History] Allopurinol [Zyloprim 100 MG] 200 mg PO DAILY 03/27/17 [History] Bethanechol Chloride [Urecholine] 25 mg PO Q8H 03/27/17 [History] Calcifediol [Rayaldee] 30 mcg PO DAILY 03/27/17 [History] Darbepoetin [Aranesp] 200 mcg SQ Q2W 03/27/17 [History] Fenofibrate Nanocrystallized [Triglide] 160 mg PO DAILY 03/27/17 [History] Insulin Glargine [Lantus] 20 unit SQ DAILY 03/27/17 [History] Insulin LISPRO [HumaLOG] 5 - 12 units SQ TIDWM 03/27/17 [History] Levothyroxine Sodium [Levoxyl] 25 mcg PO DAILY 03/27/17 [History] Metoprolol Succinate 50 mg PO DAILY 03/27/17 [History] Warfarin Sodium [Coumadin] 6 mg PO DAILY 03/27/17 [History] Warfarin [Coumadin] 1 mg PO DAILY 03/27/17 [History] Folic Acid 1 mg PO DAILY tablet 04/04/17 [Rx] Mupirocin [Bactroban Oint] 1 appl TP BID tube 04/04/17 [Rx] Nystatin POWDER [Nystop] 1 appl TP TID bottle 04/04/17 [Rx] Vancomycin [Vancocin] 1 each IVPB DAILY vial 04/04/17 [Rx] Allergies/Adverse Reactions: 3 Allergy/AdvReac Type Severity Reaction Status Date / Time albuterol Allergy Difficulty Verified 03/27/17 14:30 Breathing lisinopril Allergy Difficulty Verified 03/27/17 14:30 Breathing Sulfa (Sulfonamide Allergy Difficulty Verified 03/27/17 14:30 Antibiotics) Breathing Procedures/tests Complete & Pending: Procedures Performed prior 72 hours Category Date Time Status EV venous imaging LE BI Routine Y 04/03/17 14:29 Ordered EV venous imaging UE BI Routine Y 04/03/17 14:29 Ordered Date of admission: 03/27/17 16:39 Primary care physician: Ender Hodge MD Consults: 03/29/17 03:44 Consult to Wound Care [CONS] Routine Reason for Consult: wound to top right foot and excoriation to abdomen folds and periarea. Call Completed: No 03/29/17 07:26 Consult to Interventional Radiology [CONS] Routine Consulting Provider: Radiology Interventional Cols Reason for Consult: needs temporary HD catheter Call Completed: Yes 03/29/17 08:15 Consult to Dialysis [CONS] ONCE 03/29/17 14:57 Consult to Invasive Line Access Team [CONS] Routine Reason for Consult: limited vascular access Line Type: EPIV 03/30/17 08:00 Consult to Dialysis [CONS] ONCE 03/30/17 08:25 Consult to Gastroenterology [CONS] Routine Consulting Provider: [facility] Reason for Consult: suspect GI bleed, H/H not increasing appropriately with blood transfusions. Call Completed: Yes 03/30/17 08:28 Consult to Interventional Radiology [CONS] Routine Consulting Provider: Radiology Interventional Cols Reason for Consult: needs permacath Call Completed: Yes 03/30/17 14:49 Consult to Cardiology [CONS] Routine Comment: Consulting Provider: Cardiology Nickie Reason for Consult: persistent atrial tachycardia Call Completed: No 03/31/17 07:31 Consult to Interventional Radiology [CONS] Routine Consulting Provider: Radiology Interventional [facility]s Reason for Consult: needs permacath. INR this morning 1.9. will get 2 units FFP. Call Completed: Yes 03/31/17 07:45 Consult to Dialysis [CONS] ONCE 04/01/17 08:00 Consult to Dialysis [CONS] ONCE 04/04/17 06:30 Consult to Dialysis [CONS] ONCE Discharging clinician: Flori Nieto Anticipated date of discharge: 04/04/17 - Patient Status Disposition: Transfer Short-Term Hosp Condition: Fair Functional capacity at discharge: bed bound Overall status at discharge: patient is progressing back to baseline - Discharge Instructions Follow Up With: Ender Hodge MD [Primary Care Provider] - Chioma Ramos MD [Partnered Physician] - (SENT WEB REQUEST ON 03-31-17 @ [id number]) - Diet and Activity Activity: as per physical therapy Diet: diabetic diet, low fat, low cholesterol, low salt diet Hospital course: Ms. Denson is a 51 year old female with PMH of severe morbid obesity, CKD V with scheduled completion of fistula at the end of month, anemia, DM, HTN, HLD, CAD, A-flutter on Coumadin, diastolic CHF, COPD and on chronic tracheostomy and ventilation support. Patient presented to [facility] ED with complaint of generalized weakness and was noted to have hyperkalemia and worsening kidney function along with supratherapeutic INR (4.8) in ED. Patient was admitted on for acute on chronic kidney injury which patient needs initiation of hemodialysis per nephrology but temporary HD catheter cannot be placed until coagulopathy resolves. Patient was noted to have Hgb drop to 6.3 (was 7.1 prior ) on 03/28/17. Anemia persisted despite of multiple pRBC and plasma transfusion (total 6 units of pRBC & 5 units of plasma). EGD on 03/31/17 found normal esophagus & stomach but duodenitis. Colonoscopy on 03/31/17 found diverticulosis in the ascending colon and one 8 mm, non-bleeding polyp in the sigmoid colon which was resected. Patient's Hgb remains stable (above 8.2) since 03/31/17. Temporary HD catheter was placed by interventional radiology on 03/31/17 and patient was started on hemodialysis since. Patient was also noted to have low-grade fever 100.4 on 03/28/17 and urine culture on admission grew E. coli, which is almost alston-sensitive except resistance to Bactrim. Patient was started on IV cefriaxone on 03/28/17. But patient started to have fever (100.4) again starting 04/01/17. Patient was started on IV vancomycin on 04/01/17 and switched from ceftriaxone to Zosyn on 04/02/17. Micafungin was also started for concern of fungal infection at groin. But patient's fever still progress to high grade fever (102.8 on 04/04/17). Blood cultures from 03/27/17 and 03/29/17 all had no growth. And blood cultures from 04/01/17 (including samples from temporary HD catheter and peripheral line ) have no growth to date. Given the persistent fever despite of empiric antimicrobial therapy, there is concern of possible abscess that can contribute current clinical picture. But patient's weight (522 lb) is exceeding the safety limit for CT scan at [facility]. Patient will also benefit from infectious disease consult, which is not available at [facility] at this time. The situation was discussed with patient and patient expressed her understanding and agreement for the transfer plan to facility to provide those further work-up and care. Patient prefers [facility]. The case was discussed with [facility] admitting physician Dr. Arias and ICU physician Dr. Barnett. Dr. Arias kindly accepted the patient. Patient will be transferred to [facility] for further work-up and care. Patient expressed her understanding and agreement with the plan to go to [facility]. All questions were answered. - Time Spent with Patient Total time spent providing and/or coordinating discharge services: Greater than 30 minutes (45 minutes) - Constitutional Vitals: Temp Pulse Resp BP Pulse Ox 101.8 F H 120 19 134/57 97 04/04/17 12:20 04/04/17 07:37 04/04/17 12:20 04/04/17 12:20 04/04/17 11:30 General appearance: Present: A&O X 3, morbidly obese, no acute distress, answers questions appropriately - Head Head exam: Present: atraumatic, normocephalic - Eye Eye exam: Present: EOMI, conjuntiva pink, sclera anicteric - ENT ENT exam: Present: mucous membranes dry - Neck Additional comments: Trach in place - Respiratory Respiratory exam: Present: decreased breath sounds - Cardiovascular Cardiovascular exam: Present: tachycardia - GI/Abdominal GI/Abdominal exam: Present: normal bowel sounds, soft, no peritoneal signs. Absent: tenderness - Extremities Exam Extremities exam: Present: pedal edema (Mild), warm. Absent: cyanotic - Neurological Exam Neurological exam: Present: alert, oriented X3, no focal deficits. Absent: facial droop, speech deficit - Skin Skin exam: Present: erythema (Groin fungal infection noted.) <Sancho Rubio - Last Filed: 04/04/17 17:35> Date of Encounter: 04/04/17 - Discharge Diagnosis (1) ESRD (end stage renal disease) Priority: Primary Status: Chronic (2) Fever Priority: Secondary Status: Acute Qualifiers: Fever type: due to other condition Qualified Code(s): R50.81 - Fever presenting with conditions classified elsewhere (3) UTI (urinary tract infection) Status: Resolved Qualifiers: Urinary tract infection type: acute cystitis Hematuria presence: without hematuria Qualified Code(s): N30.00 - Acute cystitis without hematuria (4) Vvoca-tr-pitldsj kidney injury Priority: Primary Status: Suspected Qualifiers: Acute renal failure type: with acute renal cortical necrosis Chronic kidney disease stage: on chronic dialysis Qualified Code(s): N17.1 - Acute kidney failure with acute cortical necrosis; N18.9 - Chronic kidney disease, unspecified; N18.9 - Chronic kidney disease, unspecified; Z99.2 - Dependence on renal dialysis; Z99.2 - Dependence on renal dialysis; Z99.2 - Dependence on renal dialysis; Z99.2 - Dependence on renal dialysis (5) Chronic respiratory failure Status: Acute Qualifiers: Respiratory failure complication: hypoxia and hypercapnia Qualified Code(s) : J96.11 - Chronic respiratory failure with hypoxia; J96.12 - Chronic respiratory failure with hypercapnia; J96.12 - Chronic respiratory failure with hypercapnia; J96.12 - Chronic respiratory failure with hypercapnia (6) Anemia Status: Acute Qualifiers: Anemia type: iron deficiency Iron deficiency anemia type: chronic blood loss Qualified Code(s): D50.0 - Iron deficiency anemia secondary to blood loss (chronic) (7) COPD (chronic obstructive pulmonary disease) Status: Acute Qualifiers: COPD type: emphysema Emphysema type: other Qualified Code(s): J43.8 - Other emphysema (8) Diabetes mellitus Status: Acute Qualifiers: Diabetes mellitus type: type 2 Diabetes mellitus complication status: with kidney complications Diabetes mellitus complication detail: with chronic kidney disease 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: with intermodal truck driver use Chronic kidney disease stage: on chronic dialysis Qualified Code(s): E11.22 - Type 2 diabetes mellitus with diabetic chronic kidney disease; N18.6 - End stage renal disease; Z99.2 - Dependence on renal dialysis; Z99.2 - Dependence on renal dialysis; Z99.2 - Dependence on renal dialysis; N18.6 - End stage renal disease; N18.6 - End stage renal disease; N18.6 - End stage renal disease ; Z79.4 - terminal makeup operator (current) use of insulin; Z79.4 - correction (current) use of insulin; Z79.4 - correction (current) use of insulin; Z79.4 - terminal makeup operator ( current) use of insulin; Z99.2 - Dependence on renal dialysis (9) Chronic diastolic heart failure Status: Chronic (10) Morbid obesity Status: Chronic (11) Atrial flutter Status: Acute Qualifiers: Atrial flutter type: typical Qualified Code(s): I48.3 - Typical atrial flutter Procedures/tests Complete & Pending: Procedures Performed prior 72 hours Category Date Time Status EV venous imaging LE BI Routine Y 04/03/17 14:29 Ordered EV venous imaging UE BI Routine Y 04/03/17 14:29 Ordered Date of admission: 03/27/17 16:39 Primary care physician: Ender Hodge MD Consults: 03/29/17 03:44 Consult to Wound Care [CONS] Routine Reason for Consult: wound to top right foot and excoriation to abdomen folds and periarea. Call Completed: No 03/29/17 07:26 Consult to Interventional Radiology [CONS] Routine Consulting Provider: Radiology Interventional Cols Reason for Consult: needs temporary HD catheter Call Completed: Yes 03/29/17 08:15 Consult to Dialysis [CONS] ONCE 03/29/17 14:57 Consult to Invasive Line Access Team [CONS] Routine Reason for Consult: limited vascular access Line Type: EPIV 03/30/17 08:00 Consult to Dialysis [CONS] ONCE 03/30/17 08:25 Consult to Gastroenterology [CONS] Routine Consulting Provider: Gastroenterology [facility] Reason for Consult: suspect GI bleed, H/H not increasing appropriately with blood transfusions. Call Completed: Yes 03/30/17 08:28 Consult to Interventional Radiology [CONS] Routine Consulting Provider: Radiology Interventional Cols Reason for Consult: needs permacath Call Completed: Yes 03/30/17 14:49 Consult to Cardiology [CONS] Routine Comment: Consulting Provider: Cardiology Nickie Reason for Consult: persistent atrial tachycardia Call Completed: No 03/31/17 07:31 Consult to Interventional Radiology [CONS] Routine Consulting Provider: Radiology Interventional [facility]s Reason for Consult: needs permacath. INR this morning 1.9. will get 2 units FFP. Call Completed: Yes 03/31/17 07:45 Consult to Dialysis [CONS] ONCE 04/01/17 08:00 Consult to Dialysis [CONS] ONCE 04/04/17 06:30 Consult to Dialysis [CONS] ONCE Hospital course: Ms. Denson is a 51 year old female - Time Spent with Patient Total time spent providing and/or coordinating discharge services: 41min - Constitutional Vitals: Temp Pulse Resp BP Pulse Ox 101.5 F H 120 19 120/67 98 04/04/17 16:08 04/04/17 16:08 04/04/17 16:20 04/04/17 16:20 04/04/17 16:20 - Attending Attestation I examined this patient and my medical decision-making was reviewed with the Resident Physician on 04/04/17. I agree with the documented findings, disposition and treatment plan as described except to the extent set forth below. Ms Denson has been admitted with hyperkalemia and need to start dialysis. She is tolerating dialysis but has developed a fever. Work up thus far has not revealed a source and she is on broad spectrum abx and antifungal. She remains febrile to over 102 at times. At this point she should have CT of chest and abd /pelvis but we are unable to do this here due to her size. She has been accepted at [facility] in [place]. Exam Alert. Comfortable No new wounds. IV site not red Heart reg No wheeze Abd soft - nontender Multiple areas of skin breakdown in groin from yeast. Plan D/C to [facility].
[2017-04-04 16:12] VITALS: BP 120/67
[2017-04-04] MEDS ORDERED: Piperacillin/Tazobactam 3.375 GM/200 ML BAG IVPB SCH (18:00)
[2017-04-04] MEDS ORDERED: *HR* Warfarin 3 MG TABLET PO ONE (18:00)
[2017-04-04] MEDS ORDERED: Aminoglycoside Consult 1 EACH MC ONE (19:42)
== END 2017-04-04 19:43 | disposition short-term general hospital (02) | DRG 870 ==
LOC: 2ANU 12:36 → EMEROO 12:36 → 2NNU 14:43 → SUATTDRO 16:39
PROVIDERS: ADMIT Nurse Practitioner Acute Care; ATTEND Internal Medicine
PROC: IRPERMA (2017-03-31 12:00)

== ENCOUNTER 2018-06-07 17:48 | Observation (INO) ==
--- NOTE | 2018-06-07 18:10 | Emergency Department Note ---
Disposition Clinical Impression: MDR Acinetobacter baumannii infection Disposition: Still a Patient Condition: Fair Forms: ED Satisfaction Letter Time of Disposition: 19:02 General Adult HPI - General Chief complaint: ED Recheck/Abnormal Lab/Rx Stated complaint: acinetobacter in dialysis port Time Seen by Provider: 06/07/18 17:52 Source: patient, EMS Limitations: no limitations - History of Present Illness HPI Narrative: Patient is a 52-year-old female with a past medical history of end-stage renal disease with dialysis, coronary embolism, thyroid disease, CAD, CHF, COPD with acute respiratory failure requiring trach ventilation, obesity, as well as history of infections with lqofh-meit-ipvznucps organisms from various sites. Patient resides at [facility] she underwent dialysis today. She is recently admitted to the hospital and treated for [id number] infections, her permacath cultures have grown back Acinetobacter baumannii and Pain Scale: 8 - Related Data Home Medications Medication Instructions Recorded Confirmed Acetaminophen [Tylenol] 650 mg PO Q6HR PRN 05/03/18 05/03/18 B Complex W-C No.20/Folic Acid 1 mg PO DAILY 05/03/18 05/03/18 [Nephrocaps Softgel] Baclofen [Lioresal] 10 mg PO TID PRN 05/03/18 05/03/18 Docusate [Colace] 100 mg PO DAILY 05/03/18 05/03/18 Gabapentin [Neurontin] 200 mg PO TID 05/03/18 05/03/18 Ipratropium [ATROVENT Inhaler] 2 puff IH Q4H PRN 05/03/18 05/03/18 Lactobacillus [Culturelle] 1 cap PO DAILY 05/03/18 05/03/18 Lactulose [Enulose] 10 gm PO DAILY 05/03/18 05/03/18 Levothyroxine [Synthroid] 250 mcg PO 0630 05/03/18 05/03/18 Metoprolol XL (24 HR) Succ [Toprol 50 mg PO DAILY 05/03/18 05/03/18 Xl] Nitroglycerin [Nitrostat] 0.4 mg SL Q5M PRN MDD MAX DOSES X3 05/03/18 05/03/18 CALL 911 Sevelamer [Renvela] 800 mg PO TIDWM 05/03/18 05/03/18 Trazodone HCl 100 mg PO HS 05/03/18 05/03/18 Previous Rx's Medication Instructions Recorded Darbepoetin [Aranesp] 40 mcg SQ QWEEK syringe 05/17/18 Dextrose 50 % in Water (Syg) 25 ml IVP AD PRN syringe 05/17/18 [Dextrose 50% (Syg)] Dextrose Gel [Gluctose] 15 gm PO ONCE PRN tube 05/17/18 Dextrose Gel [Gluctose] 30 gm PO ONCE PRN tube 05/17/18 DiphenhydraMINE [Benadryl] 1 appl TP TID PRN tube 05/17/18 DiphenhydraMINE [Benadryl] 25 mg PO Q6HR PRN capsule 05/17/18 Glucagon, Human Recombinant 1 mg IM ONCE PRN vial 05/17/18 [Glucagen] Heparin 4,000 unit IV ONCE PRN vial 05/17/18 Heparin 4,000 unit IV ONCE PRN vial 05/17/18 Heparin 4,500 unit IVP Q6H PRN vial 05/17/18 Heparin 9,000 unit IVP Q6HR PRN vial 05/17/18 Hydrocortisone 1% CREAM [Cortaid] 1 appl TP BID bottle 05/17/18 Insulin DETEMIR [Levemir] 45 unit SQ HS [id number] 05/17/18 Insulin LISPRO [HumaLOG] 0 units SQ HS vial 05/17/18 Insulin LISPRO [HumaLOG] 0 units SQ TIDAC vial 05/17/18 Insulin LISPRO [HumaLOG] 10 units SQ TIDWM vial 05/17/18 Naloxone [Narcan] 0.4 mg IVP Q2MIN PRN inj 05/17/18 Nystatin POWDER [Nystop] 1 appl TP TID PRN bottle 05/17/18 Pantoprazole [Protonix] 40 mg IVP Q12HR vial 05/17/18 Allergies Allergy/AdvReac Type Severity Reaction Status Date / Time albuterol Allergy Difficulty Verified 05/03/18 07:52 Breathing lisinopril Allergy Difficulty Verified 05/03/18 07:52 Breathing Sulfa (Sulfonamide Allergy Difficulty Verified 05/03/18 07:52 Antibiotics) Breathing All systems ED: reviewed and negative except as stated. Review of Systems: As Per HPI Constitutional: Denies: fever Cardiovascular: Denies: chest pain, palpitations, dyspnea on exertion Respiratory: Denies: cough, dyspnea Gastrointestinal: Denies: abdominal pain, nausea, vomiting, diarrhea, constipation Musculoskeletal: Reports: back pain (Chronic) Integumentary: Reports: rash (left upper thigh wound, chronic. ) Past Medical History - Past Medical History Attestation: Yes The following information was validated with the patient. 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 bleed - Social History Smoking Status: Never smoker Smokeless Tobacco Status: No Alcohol use: Reports: none Drug use: Reports: none Physical Exam - General Limitations: no limitations General appearance: alert, in no apparent distress - Head Head exam: atraumatic, normocephalic, normal inspection - Eye Eye exam: Present: normal appearance, PERRL, EOMI - ENT ENT exam: normal exam, normal oropharynx, mucous membranes moist - Neck Neck exam: Present: normal inspection, full ROM, trachea midline - Chest Chest inspection: Present: normal inspection, symmetric chest wall rise - Respiratory Respiratory exam: Present: normal lung sounds bilaterally. Absent: respiratory distress, wheezes, stridor, accessory muscle use - Cardiovascular Cardiovascular exam: Present: regular rate, normal rhythm, normal heart sounds, +S1, +S2 - Abdominal Exam Abdominal exam: Present: soft, Non-Tender. Absent: tenderness, distention, guarding, rebound, rigidity - Extremities Exam Extremities exam: Present: normal inspection, full ROM. Absent: tenderness, pedal edema - Neurological Exam Neurological exam: Present: alert, oriented X3 - Psychiatric Psychiatric exam: Present: normal affect, normal mood - Skin Skin exam: Present: warm, dry Course Course Narrative: Patient's presenting for evaluation after positive blood cultures and her permacath which are performed after apparent discharge from the catheter site. This is not appear look infected on exam. Skin surrounding is nonerythematous there is no obvious area of fluctuance or induration. I discussed the patient's case with the infectious disease physician mold construction supervisor and he recommended Ceftazidime and Colistin. Repeat peripheral cultures and repeat perma-cath cultures. States he will see her in the morning. The patient undergo general lab workup for infection be admitted to hospital. There will be consult with infectious disease. Vital Signs Respiratory Rate 24 06/07/18 17:52 O2 Sat by Pulse Oximetry 100 06/07/18 17:52 Temperature 99.4 F 06/07/18 17:53 Pulse Rate 79 06/07/18 18:22 Respiratory Rate 22 06/07/18 18:22 Blood Pressure 100/35 06/07/18 18:22 O2 Sat by Pulse Oximetry 97 06/07/18 18:22 Oxygen Delivery Oxygen Delivery CPAP Mask O2,Trach Mask Medical Decision Making - Medical Records Medical records reviewed: Yes I reviewed the patient's medical records. - Lab Data Lab results reviewed: Yes I reviewed the patient's lab results. Sandy - Sandy Situation: Demographics, MOA Background: Presenting Complaint, Relevant PMH, Meds, & Allergies Assessment: Vital Signs, Course and respsone to treatment, Exam Concerns, Patient/Family Expectation, Pertinant Lab Results, Outstanding Labs Recommendation: Barrier(s) to disposition, Recommendation based on pending studies, treatments, or consults S.B.AAraceli Report Given to: Jose Delgado Repor Time: 19:03
--- NOTE | 2018-06-07 18:37 | Emergency Department Note ---
Disposition Clinical Impression: Sepsis due to Acinetobacter Disposition: Transfer Other Forms: ED Satisfaction Letter General Adult HPI - General Chief complaint: ED Recheck/Abnormal Lab/Rx Stated complaint: acinetobacter in dialysis port Time Seen by Provider: 06/07/18 17:52 Source: patient, EMS Limitations: no limitations - History of Present Illness Pain Scale: 8 - Related Data Home Medications Medication Instructions Recorded Confirmed Acetaminophen [Tylenol] 650 mg PO Q6HR PRN 05/03/18 05/03/18 B Complex W-C No.20/Folic Acid 1 mg PO DAILY 05/03/18 05/03/18 [Nephrocaps Softgel] Baclofen [Lioresal] 10 mg PO TID PRN 05/03/18 05/03/18 Docusate [Colace] 100 mg PO DAILY 05/03/18 05/03/18 Gabapentin [Neurontin] 200 mg PO TID 05/03/18 05/03/18 Ipratropium [ATROVENT Inhaler] 2 puff IH Q4H PRN 05/03/18 05/03/18 Lactobacillus [Culturelle] 1 cap PO DAILY 05/03/18 05/03/18 Lactulose [Enulose] 10 gm PO DAILY 05/03/18 05/03/18 Levothyroxine [Synthroid] 250 mcg PO 0630 05/03/18 05/03/18 Metoprolol XL (24 HR) Succ [Toprol 50 mg PO DAILY 05/03/18 05/03/18 Xl] Nitroglycerin [Nitrostat] 0.4 mg SL Q5M PRN MDD MAX DOSES X3 05/03/18 05/03/18 CALL 911 Sevelamer [Renvela] 800 mg PO TIDWM 05/03/18 05/03/18 Trazodone HCl 100 mg PO HS 05/03/18 05/03/18 Previous Rx's Medication Instructions Recorded Darbepoetin [Aranesp] 40 mcg SQ QWEEK syringe 05/17/18 Dextrose 50 % in Water (Syg) 25 ml IVP AD PRN syringe 05/17/18 [Dextrose 50% (Syg)] Dextrose Gel [Gluctose] 15 gm PO ONCE PRN tube 05/17/18 Dextrose Gel [Gluctose] 30 gm PO ONCE PRN tube 05/17/18 DiphenhydraMINE [Benadryl] 1 appl TP TID PRN tube 05/17/18 DiphenhydraMINE [Benadryl] 25 mg PO Q6HR PRN capsule 05/17/18 Glucagon, Human Recombinant 1 mg IM ONCE PRN vial 05/17/18 [Glucagen] Heparin 4,000 unit IV ONCE PRN vial 05/17/18 Heparin 4,000 unit IV ONCE PRN vial 05/17/18 Heparin 4,500 unit IVP Q6H PRN vial 05/17/18 Heparin 9,000 unit IVP Q6HR PRN vial 05/17/18 Hydrocortisone 1% CREAM [Cortaid] 1 appl TP BID bottle 05/17/18 Insulin DETEMIR [Levemir] 45 unit SQ HS [id number] 05/17/18 Insulin LISPRO [HumaLOG] 0 units SQ HS vial 05/17/18 Insulin LISPRO [HumaLOG] 0 units SQ TIDAC vial 05/17/18 Insulin LISPRO [HumaLOG] 10 units SQ TIDWM vial 05/17/18 Naloxone [Narcan] 0.4 mg IVP Q2MIN PRN inj 05/17/18 Nystatin POWDER [Nystop] 1 appl TP TID PRN bottle 05/17/18 Pantoprazole [Protonix] 40 mg IVP Q12HR vial 05/17/18 Allergies Allergy/AdvReac Type Severity Reaction Status Date / Time albuterol Allergy Difficulty Verified 05/03/18 07:52 Breathing lisinopril Allergy Difficulty Verified 05/03/18 07:52 Breathing Sulfa (Sulfonamide Allergy Difficulty Verified 05/03/18 07:52 Antibiotics) Breathing Past Medical History - Past Medical History Medical history: Reports: diabetes, renal disease, GERD, hyperlipidemia, pulmonary embolus, thyroid disease, coronary artery disease, CHF, COPD Surgical history: Reports: other Psychiatric history: Reports: anxiety, depression 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 Beaulieu and he has reccomedned admission to [facility] and has given antibiotics therapy. We will likel sign this patinet out to Dr. Garcia and Gordon for followup. Antony has been updated and is agreeabkle to plan Time: 18:53 Vital Signs Respiratory Rate 24 06/07/18 17:52 O2 Sat by Pulse Oximetry 100 06/07/18 17:52 Temperature 99.4 F 06/07/18 17:53 Pulse Rate 79 06/07/18 18:22 Respiratory Rate 22 06/07/18 18:22 Blood Pressure 100/35 06/07/18 18:22 O2 Sat by Pulse Oximetry 97 06/07/18 18:22 Oxygen Delivery Oxygen Delivery CPAP Mask O2,Trach Mask Attestation Statement - Attestation Attestation: I examined this patient and my medical decision-making was reviewed with the Resident Physician. I agree with the documented findings, disposition and treatment plan as described except to the extent set forth below. 52 year old female presntes to the eD with MDR actinebacter that has grown in her trach before and is now found in her dialysis port. Leatha states that she was transferre to [facility] in the past for this and prefers not to go to [facility]. Leatha has been evlauted by ID in the past for this and it appears that they reccomedned transfer to tertiary clinic. ID has been paged howveer we have no heard from them yet. We will transfer to tertiary clinic. Leatha alert, and we have started sepsis workup now.
[2018-06-07] MEDS ORDERED: Colistin (Colistimethate) 300 MG in 0.9 % Sodium Chloride 50 ML IVPB STA (18:46)
[2018-06-07] MEDS ORDERED: CEFTAZIDIME IVP STA (18:46)
[2018-06-07] MEDS ORDERED: WATER FOR INJ IVP STA (18:46)
[2018-06-07 19:21] LABS: INR 1.9; Prothrombin Time 21.8 Seconds (9.4-12.1)
[2018-06-07 19:22] LABS: Troponin I 0.03 ng/mL (< 0.04)
[2018-06-07 19:23] LABS: Activated Partial Thrombo Time 42.8 Seconds (26.0-36.0)
[2018-06-07 19:24] LABS: Albumin 3.3 g/dL (3.5-5.7); Albumin/Globulin Ratio 0.9 (1.1-2.2); Bilirubin,Direct 0.1 mg/dL (0.0-0.2); Bilirubin,Indirect 0.2 mg/dL (0.0-1.2); Bilirubin,Total 0.3 mg/dL (0.3-1.0); Calcium 8.5 mg/dL (8.6-10.3); Globulin 3.5 g/dL (2.4-3.5); Magnesium 1.7 mg/dL (1.6-2.6); Phosphorous 3.6 mg/dL (2.7-4.5); Potassium 3.8 mEq/L (3.5-5.1); Total Protein 6.8 g/dL (6.4-8.9)
[2018-06-07 19:46] LABS: Basophils # 0.1 K/mcL (0.0-0.2); Basophils % 1.1 %; Eosinophils # 0.2 K/mcL (0.0-0.6); Eosinophils % 3.1 %; Hematocrit 23.5 % (35.3-44.9); Hemoglobin 7.2 g/dL (11.5-15.4); Immature Granulocytes % 0.4 % (0-4); Lymphocytes # 0.6 K/mcL (0.6-4.6); Lymphocytes % 10.6 %; Mean Corpuscular HGB Conc 30.6 g/dL (31.6-35.5); Mean Corpuscular Hemoglobin 28.6 pg (28.0-33.3); Mean Corpuscular Volume 93.3 fL (83.0-100.0); Mean Platelet Volume 9.1 fL (9.4-12.4); Monocytes # 0.4 K/mcL (0.0-1.3); Monocytes % 6.8 %; Neutrophils # 4.3 K/mcL (1.6-8.9); Platelet Count 224 K/mcL (140-400); Red Blood Count 2.52 M/mcL (3.82-4.97); Red Cell Distribution Width 16.2 % (11.5-14.5)
--- NOTE | 2018-06-07 19:52 | Internal Med History&Physical ---
<Claudio Alvarez S - Last Filed: 06/07/18 21:25> Date of Encounter: 06/07/18 Time of Encounter: 20:54 Internal Medicine - H&P: HPI Chief complaint: infection Admitted From: Home Plans for Post Hospital Care: Home History of present illness: Ms. Denson is a 52 year old female with PMH of morbid obesity, T2DM, GERD, ESRD on HD MWF, chronic anemia, and MRDO actinobacter baumanii. Pt was sent here for sputum cx that grew positive MRDO actinobacter baumanii on 05/09/18. She has no other acute concerns or complaints. She denies fevers, chills, n/v/d, abd pain, chest pain, sputum production changes, increased cough, edema, skin changes, or any headaches/visual changes. ER physicians spoke with infectious dz specialist, she was given a dose of colistin and ceftazidime in the ER. XR chest unremarkable. CBC shows chronic anemia but is otherwise unremarkable and pt shows no signs of systemic infxn. She will be admitted for further workup and evaluation with neprhology and infectious dz consulted. Past Med Surg Social Fam HX - Past Medical History Medical history: diabetes, renal disease, GERD, hyperlipidemia, pulmonary embolus, thyroid disease, coronary artery disease, CHF, COPD Additional medical history: chronic bronchitis, morbid obesity, pneumonia, hyperparathyroidism, anemia, Vit D deficiency, edema, hypopotassemia, sleep apnea Psychiatric history: anxiety, depression - Past Surgical History Surgical History: other Additional surgical history: tracheostomy from respiratory failure , D & C, uterine ablation - Social History Smoking Status: Never smoker Smokeless Tobacco Status: No Alcohol use: none Drug use: none - Family History Mother Living Status: Still Living Hx Family Cardiac Disorders: Yes (Hypertension) Hx Family Endocrine Disorder: Yes (Diabetes) Internal Medicine - H&P: Meds Acetaminophen [Tylenol] 650 mg PO Q6HR PRN 05/03/18 [History] B Complex W-C No.20/Folic Acid [Nephrocaps Softgel] 1 mg PO DAILY 05/03/18 [History] Baclofen [Lioresal] 10 mg PO TID PRN 05/03/18 [History] Docusate [Colace] 100 mg PO DAILY 05/03/18 [History] Gabapentin [Neurontin] 200 mg PO TID 05/03/18 [History] Ipratropium [ATROVENT Inhaler] 2 puff IH Q4H PRN 05/03/18 [History] Lactobacillus [Culturelle] 1 cap PO DAILY 05/03/18 [History] Lactulose [Enulose] 10 gm PO DAILY 05/03/18 [History] Levothyroxine [Synthroid] 250 mcg PO 0630 05/03/18 [History] Metoprolol XL (24 HR) Succ [Toprol Xl] 50 mg PO DAILY 05/03/18 [History] Nitroglycerin [Nitrostat] 0.4 mg SL Q5M PRN MDD MAX DOSES X3 CALL 911 05/03/18 [History] Sevelamer [Renvela] 800 mg PO TIDWM 05/03/18 [History] Trazodone HCl 100 mg PO HS 05/03/18 [History] Darbepoetin [Aranesp] 40 mcg SQ QWEEK syringe 05/17/18 [Rx] Dextrose 50 % in Water (Syg) [Dextrose 50% (Syg)] 25 ml IVP AD PRN syringe 05/17/18 [Rx] Dextrose Gel [Gluctose] 15 gm PO ONCE PRN tube 05/17/18 [Rx] Dextrose Gel [Gluctose] 30 gm PO ONCE PRN tube 05/17/18 [Rx] DiphenhydraMINE [Benadryl] 1 appl TP TID PRN tube 05/17/18 [Rx] DiphenhydraMINE [Benadryl] 25 mg PO Q6HR PRN capsule 05/17/18 [Rx] Glucagon, Human Recombinant [Glucagen] 1 mg IM ONCE PRN vial 05/17/18 [Rx] Heparin 4,000 unit IV ONCE PRN vial 05/17/18 [Rx] Heparin 4,000 unit IV ONCE PRN vial 05/17/18 [Rx] Heparin 4,500 unit IVP Q6H PRN vial 05/17/18 [Rx] Heparin 9,000 unit IVP Q6HR PRN vial 05/17/18 [Rx] Hydrocortisone 1% CREAM [Cortaid] 1 appl TP BID bottle 05/17/18 [Rx] Insulin DETEMIR [Levemir] 45 unit SQ HS [id number] 05/17/18 [Rx] Insulin LISPRO [HumaLOG] 0 units SQ HS vial 05/17/18 [Rx] Insulin LISPRO [HumaLOG] 0 units SQ TIDAC vial 05/17/18 [Rx] Insulin LISPRO [HumaLOG] 10 units SQ TIDWM vial 05/17/18 [Rx] Naloxone [Narcan] 0.4 mg IVP Q2MIN PRN inj 05/17/18 [Rx] Nystatin POWDER [Nystop] 1 appl TP TID PRN bottle 05/17/18 [Rx] Pantoprazole [Protonix] 40 mg IVP Q12HR vial 05/17/18 [Rx] Allergy/AdvReac Type Severity Reaction Status Date / Time albuterol Allergy Difficulty Verified 05/03/18 07:52 Breathing lisinopril Allergy Difficulty Verified 05/03/18 07:52 Breathing Sulfa (Sulfonamide Allergy Difficulty Verified 05/03/18 07:52 Antibiotics) Breathing All Systems PM: A 10-system review of systems was performed and is negative for pertinent f indings except as documented above in the HPI. - Constitutional Constitutional: no chills, no fever(s) - EENT Eyes: no blurry vision - Cardiovascular Cardiovascular ROS IM: no chest pain, no dyspnea, no dyspnea on exertion - Respiratory Respiratory: no hemoptysis, no dyspnea on exertion - Gastrointestinal Gastrointestinal: constipation, dyspepsia, no abdominal pain, no diarrhea, no nausea, no vomiting - Genitourinary Genitourinary: no urinary frequency, no urinary hesitancy - Musculoskeletal Musculoskeletal ROS IM: back pain - Integumentary Integumentary IM: no erythema, no pruritus - Neurological Neurological ROS: no frequent falls, no headache(s) - Psychiatric Psychiatric: anxiety - Endocrine Endocrine IM: no fatigue - Hematologic/Lymphatic Hematologic/Lymphatic: no easy bleeding, no easy bruising - Constitutional Vitals: Temp Pulse Resp BP Pulse Ox 99.4 F 79 22 100/35 97 06/07/18 17:53 06/07/18 18:22 06/07/18 18:22 06/07/18 18:22 06/07/18 18:22 General appearance: Present: cooperative, A&O X 3, morbidly obese, no acute d istress Exam: x - Head Head exam: Present: atraumatic, normocephalic - Eye Eye exam: Present: sclera anicteric - ENT ENT exam: Present: mucous membranes moist - Neck Neck exam general surgery: Present: trachea midline - Respiratory Respiratory exam: Present: decreased breath sounds, prolonged expiratory phase. Absent: accessory muscle use, respiratory distress, rhonchi, stridor, wheezes, tachypnea - Cardiovascular Cardiovascular exam: Present: RRR, +S1, +S2. Absent: clicks, gallop, JVD, rubs - GI/Abdominal GI/Abdominal exam: Present: mass (RLQ/umbilical region, tender mass to palpation, nonerythematous no induration), soft, tenderness, no peritoneal signs. Absent: distended, firm, guarding, hernia, rigid - Extremities Exam Extremities exam: Present: normal capillary refill, normal inspection, warm - Neurological Exam Neurological exam: Present: alert, oriented X3, no focal deficits, strengths equal and symetr throughout - Psychiatric Psychiatric exam: Present: normal affect, normal mood - Skin Skin exam: Present: dry, intact, warm Internal Med - H&P Results - Labs CBC & Chem 7: 06/07/18 19:17 06/07/18 18:45 Labs: Short CBC 06/07/18 Range/Units 19:17 WBC 5.5 (4.3-11.1) K/mcL Hgb 7.2 L (11.5-15.4) g/dL Hct 23.5 L (35.3-44.9) % Plt Count 224 (140-400) K/mcL Neutrophils # 4.3 (1.6-8.9) K/mcL BMP 06/07/18 18:45 Sodium 133 L Potassium 3.8 Chloride 95 L Carbon Dioxide 29 BUN 21 H Creatinine 2.51 H Glucose 269 H Calcium 8.5 L Cardiac Enzymes 06/07/18 Range/Units 18:45 Troponin I 0.03 (< 0.04) ng/mL Liver Function 06/07/18 Range/Units 18:45 Total Bilirubin 0.3 (0.3-1.0) mg/dL Direct Bilirubin 0.1 (0.0-0.2) mg/dL AST 11 L (13-39) Units/L ALT 4 L (7-52) Units/L Alkaline Phosphatase 124 H (34-104) Units/L Albumin 3.3 L (3.5-5.7) g/dL - Impressions ITS Impressions Chest X-Ray 06/07/18 18:06 IMPRESSION: 1. Stable mild enlargement of the cardiac silhouette. No superimposed pulmonary finding to account for patient's sepsis. D/ / Laith Olivas MD / Laith Olivas MD Interpreting Provider: Laith Olivas MD - Assessment and plan (1) MDR Acinetobacter baumannii infection Current Visit: Yes Status: Acute Assessment and plan: Pt reported to have come here from HD center after being told that her cultures grew MRDO actinobacter baumannii - pt denies any systemic symptoms, fevers/chills/weight loss; denies pain around her HD site or trach site - denies any new sputum coming out of trach, discharge from trach or HD site Pt does NOT meet sepsis/SIRS criteria: afebrile, RRR, no white count CXR unremarkable 05/09/18: sputum cx grew P aeruginosa and actinobacter baumannii MDRO cx and sensitivies were panresistent Plan: - infectious disease consulted - spoke to ER/ICU pharmacistEhsan, regarding abx ; for now will hold off on starting abx until ID sees her colistin 150mg timed for 1600 q24 ceftazidime 1000mg MWF timed for 1700 after HD - blood cx pending - urine cx pending - cbc/bmp with morning labs - pt will be admitted to for further workup and treatment (2) Abdominal pannus Current Visit: Yes Status: Acute Assessment and plan: Upon physical exam of this pt's pannus, a large mass was palpated midline to the RUQ/RLQ. - previous CT abdomen done 05/10/18 extensive soft tissue edema in the left lateral abdominal wall with skin thi ckening in the pannus Plan: - will repeat the CT abdomen and pelvis, the area of induration appears in expanded area different than last presentation (3) Tracheostomy care Current Visit: Yes Status: Acute Assessment and plan: See above. (4) Morbid obesity Current Visit: Yes Status: Acute Assessment and plan: BMI 61.2 - chronic - very large pannus with hard mass like area, will get CT scan of the abdomen - see plan as above (5) Diabetes mellitus Current Visit: No Status: Acute Assessment and plan: Glucose on admission 269 - chronic Plan: - MDSS - ADA diet - achs glucose checks Qualifiers: Diabetes mellitus type: type 2 Diabetes mellitus supervisor paint department insulin use: with supervisor paint department use Diabetes mellitus complication status: with kidney complications Diabetes mellitus complication detail: with chronic kidney disease Chronic kidney disease stage: on chronic dialysis Qualified Code(s): E11.22 - Type 2 diabetes mellitus with diabetic chronic kidney disease; N18.6 - End stage renal disease; Z79.4 - community product specialist (current) use of insulin; Z99.2 - Dependence on renal dialysis (6) GERD (gastroesophageal reflux disease) Current Visit: No Status: Chronic Assessment and plan: On protonix - continue home medicine Qualifiers: Esophagitis presence: esophagitis presence not specified Qualified Code(s): K21.9 - Gastro-esophageal reflux disease without esophagitis (7) COPD (chronic obstructive pulmonary disease) Current Visit: No Status: Acute Assessment and plan: Chronic - NOT in acute exacerbation - continue home meds Qualifiers: COPD type: emphysema Emphysema type: other Qualified Code(s): J43.8 - Other emphysema (8) DVT prophylaxis Current Visit: No Status: Acute Assessment and plan: sq heparin (9) Chronic anemia Current Visit: No Status: Acute Assessment and plan: Hemoglobin 7.2 - appears around baseline, chronic issue - MCV normal - likely anemia of chronic dz - continue to monitor hemoglobin (10) Hypothyroidism Current Visit: No Status: Chronic Assessment and plan: on synthroid - chronic Qualifiers: Hypothyroidism type: acquired Qualified Code(s): E03.9 - Hypothyroidism, unspecified (11) ESRD (end stage renal disease) on dialysis Current Visit: No Status: Acute Assessment and plan: HD MWF Plan: - strict I&O - avoid nephrotoxins - nephrology consult for HD (12) Acute and chronic respiratory failure with hypoxia Current Visit: No Status: Acute Assessment and plan: Secondary to trachostomy - on chronic vent support and trach site (13) Constipation Current Visit: Yes Status: Acute Assessment and plan: Pt has hx of chronic constipation, has been worse lately - MOM enema x1 Qualifiers: Constipation type: unspecified constipation type Qualified Code(s): K59.00 - Constipation, unspecified - Time Spent With Patient Total time spent is greater than 50% in coordination of care (as documented) at patient's floor/unit and/or counseling patient: 25 - 35 minutes <Charly Bocanegra - Last Filed: 06/08/18 00:22> Date of Encounter: 06/07/18 Time of Encounter: 20:50 - Constitutional Constitutional: no chills, no fever(s) - EENT Eyes: no blurry vision, no change in vision Ears: no ear pain, no tinnitus Nose, mouth and throat: no nasal congestion, no nasal discharge, no sore throat - Cardiovascular Cardiovascular ROS IM: no chest pain, no dyspnea - Respiratory Respiratory: no cough, no chest congestion, no excessive phlegm production, no change in phlegm color, no pain with cough - Gastrointestinal Gastrointestinal: constipation, no abdominal pain, no hematemesis, no hematochezia, no melena, no nausea, no vomiting - Genitourinary Genitourinary: no dysuria, no hematuria Additional comments: patient still makes some urine - Musculoskeletal Musculoskeletal ROS IM: no joint swelling - Integumentary Integumentary IM: no rash, no jaundice - Neurological Neurological ROS: no focal weakness, no frequent falls, no headache(s) - Endocrine Endocrine IM: no polydipsia, no polyuria - Allergic/Immunologic Allergic/Immunologic: no GI upset with certain foods - Constitutional Vitals: Temp Pulse Resp BP Pulse Ox 99.4 F 77 19 105/40 100 06/07/18 17:53 06/07/18 20:11 06/07/18 20:11 06/07/18 20:11 06/07/18 20:11 General appearance: Present: cooperative, A&O X 3, pleasant, no acute distress - Head Head exam: Present: normal inspection - Eye Eye exam: Present: EOMI, PERRL. Absent: scleral icterus Pupils: Present: normal accommodation - ENT ENT exam: Present: mucous membranes moist Additional comments: tracheostomy site clean, dry, without appreciable induration - Neck Neck exam general surgery: Present: full ROM, supple, trachea midline. Absent: tenderness, nuchal rigidity, thyromegaly - Respiratory Respiratory exam: Present: prolonged expiratory phase (mild), rhonchi. Absent: accessory muscle use, chest wall tenderness, rales, respiratory distress, wheezes, tachypnea - Cardiovascular Cardiovascular exam: Present: RRR, +S1, +S2. Absent: diastolic murmur, systolic murmur - GI/Abdominal GI/Abdominal exam: Present: mass (large panus with no appreciable tenderness, erythema, or edema; chronic skin discoloration noted on pannus), soft. Absent: hepatomegaly, splenomegaly, tenderness - Extremities Exam Extremities exam: Present: warm, radial pulses palpable and symmetrical. Absent: calf tenderness, tenderness - Neurological Exam Neurological exam: Present: alert, CN II-XII intact, oriented X3, no focal deficits, strengths equal and symetr throughout - Psychiatric Psychiatric exam: Present: normal affect, normal mood Internal Med - H&P Results - Labs CBC & Chem 7: 06/07/18 19:17 06/07/18 18:45 Labs: Short CBC 06/07/18 Range/Units 19:17 WBC 5.5 (4.3-11.1) K/mcL Hgb 7.2 L (11.5-15.4) g/dL Hct 23.5 L (35.3-44.9) % Plt Count 224 (140-400) K/mcL Neutrophils # 4.3 (1.6-8.9) K/mcL BMP 06/07/18 18:45 Sodium 133 L Potassium 3.8 Chloride 95 L Carbon Dioxide 29 BUN 21 H Creatinine 2.51 H Glucose 269 H Calcium 8.5 L Cardiac Enzymes 06/07/18 Range/Units 18:45 Troponin I 0.03 (< 0.04) ng/mL Liver Function 06/07/18 Range/Units 18:45 Total Bilirubin 0.3 (0.3-1.0) mg/dL Direct Bilirubin 0.1 (0.0-0.2) mg/dL AST 11 L (13-39) Units/L ALT 4 L (7-52) Units/L Alkaline Phosphatase 124 H (34-104) Units/L Albumin 3.3 L (3.5-5.7) g/dL - Impressions ITS Impressions Chest X-Ray 06/07/18 18:06 IMPRESSION: 1. Stable mild enlargement of the cardiac silhouette. No superimposed pulmonary finding to account for patient's sepsis. D/ / Laith Olivas MD / Laith Olivas MD Interpreting Provider: Laith Olivas MD - Diagnostic Studies Chest x-ray Status: image reviewed by me (negative; improved compared to last CXR) - Time Spent With Patient Total time spent is greater than 50% in coordination of care (as documented) at patient's floor/unit and/or counseling patient: - Attending Attestation I discussed the patient TYONEK, past medical history, review of systems, lab data, imaging data, and exam findings with Dr. Alvarez. I then saw and examined patient independently in the ER. She denies any complaints whatsoever. She feels well and at her baseline. She denies any fevers, chills, night sweats, cough, shortness of breath, vomiting, or diarrhea. She is a chronic vent patient at night and wears CPAP via her tracheostomy during the daytime. She was recently hospitalized last month with pneumonia and tracheitis complicated by Pseudomonas Aeruginosa and Acinetobacter Baumannii, both of which were alston resistant. She finished her antibiotics on May 22 and has felt well ever since then. She denies any respiratory complaints beyond her baseline. She was sent here by her hemodialysis center today for concerns of recent tracheal culture showing these organisms. The last culture we could find was done 05/09/2018. I reviewed all her old culture results and note that she has not had any positive blood cultures. Given her lack of symptoms, normal white count, absence of fever, and feeling at her baseline state, I am not convinced she is actively infected at this time. I suspect she is colonized. She was given a dose of antibiotics tonight in the ER as requested by infectious disease. We will consult infectious disease and defer any further antibiotic administration to Dr. Kennedy. Given her multiple drug-resistant organisms, we will keep her in isolation. Blood cultures have been ordered in the ER. We will also ask nephrology to see patient in consultation to assist with dialysis management. Other than my comments above and noted exam findings, I agree with Dr. Alvarez's assessment and plan.
[2018-06-07] MEDS ORDERED: D5% in Water 1,000 ML IVC PRN (20:56)
[2018-06-07] MEDS ORDERED: Dextrose 4 GM Chewable Tablets PO PRN ×2 (20:56)
[2018-06-07] MEDS ORDERED: *HR* Dextrose 50 % in Water (Syg) 50 ML SYRINGE IVP PRN (20:56)
[2018-06-07] MEDS ORDERED: Dextrose Gel 15 GM/37.5 ML TUBE PO PRN ×2 (20:56)
[2018-06-07] MEDS ORDERED: Naloxone 0.4 MG/ML INJ IVP PRN (20:56)
[2018-06-07] MEDS ORDERED: Milk and Molasses Enema 200 ML RC ONE (20:58)
[2018-06-07] MEDS ORDERED: Nystatin POWDER 30 GM BOTTLE TP PRN (21:39)
[2018-06-08] MEDS: *HR* Heparin 5,000 UNIT/ML VIAL SQ SCH ×3 (02:29→17:41)
[2018-06-08] MEDS: Baclofen 10 MG TABLET PO PRN ×3 (02:29→20:40)
[2018-06-08] MEDS: Acetaminophen 325 MG TABLET PO PRN ×3 (02:29→20:40)
[2018-06-08] MEDS: Insulin LISPRO 300 UNITS/3 ML VIAL SQ SCH ×5 (02:40→20:41)
[2018-06-08 05:00] LABS: Hematocrit 25.9 % (35.3-44.9); Hemoglobin 7.8 g/dL (11.5-15.4); Mean Corpuscular HGB Conc 30.1 g/dL (31.6-35.5); Mean Corpuscular Hemoglobin 28.5 pg (28.0-33.3); Mean Corpuscular Volume 94.5 fL (83.0-100.0); Mean Platelet Volume 8.8 fL (9.4-12.4); Platelet Count 244 K/mcL (140-400); Red Blood Count 2.74 M/mcL (3.82-4.97); Red Cell Distribution Width 16.3 % (11.5-14.5)
[2018-06-08] MEDS: Pantoprazole 40 MG VIAL IVP SCH ×2 (05:16→17:43)
[2018-06-08 05:20] LABS: Calcium 8.4 mg/dL (8.6-10.3); Potassium 4.5 mEq/L (3.5-5.1)
--- NOTE | 2018-06-08 08:52 | Internal Med Progress Note ---
Hospitalist Progress Note - Encounter Date of Encounter: 06/08/18 Time of Encounter: 08:24 - Subjective Interval History: Patient seen and examined this morning. No acute overnight events. Denies fevers, chills, N/V. Denies sob, chest pain, dizziness. - Exam Vitals: Temp Pulse Resp BP Pulse Ox 99.4 F 78 18 106/41 96 06/08/18 07:40 06/08/18 07:40 06/08/18 07:40 06/08/18 07:40 06/08/18 07:40 Exam: General: In no acute distress. Conversant. Morbildly Obese. Respiratory exam: CTAB. no accessory muscle use, rales, rhonchi, wheezes. Has tracheostomy Cardiovascular exam: RRR, +S1, +S2. no murmur, gallop, rubs. Rt Permacath. GI/Abdominal exam: morbidly obese, some edema noted. Non-tender, Non-distended, couldn not appreciate bowel sounds, soft, no peritoneal signs. Extremities exam: no pedal edema. no calf tenderness Neurological exam: CN II-XII intact, AO X3, no focal deficits. no pronater drift, facial droop, speech deficit - Summary of Assessment and Plan Summary of Assessment and Plan: [facility] - Last sputum culutre from 05/09/18 with MRDO actinobacter baumanii and pseudomonast. Was transferred to [facility]. Finished antibiotic course on 05/22/18 - Patient on chronic vent patient at night and wears CPAP via her tracheostomy during the daytime - Patient admitted for positive blood cultures, however without any signs of sepsis or apparent source. Received Ceftazidime and colistin in ER. - ID consulted for antibiotic guidance. Possible contamination. Repeat blood cultures collected DM - acuchecks and insulin sliding scale ESRD on HD MWF - nephrology consulted for dialysis management - recently replaced dialysis access. Chronic anemia - Stable - no signs of active bleed. required PRBC transfusion on last admission. Did not had colonoscopy at [facility]. - Monitor for now Hypothyroidism - c/w levothyroxine. h/o choledocholithiasis and cholelithaisis - on imaging on last admission. - Was followed up by GI at [facility]. Did not have any procedure there as per patient. AST/ALT and bilirubin not elevated. - Without any abdominal pain. Monitor for now. DVt ppx - on heparin. - Time Spent with Patient Total time spent is greater than 50% in coordination of care (as documented) at patient's floor/unit and/or counseling patient: Internal Medicine: Result - Labs CBC & Chem 7: 06/08/18 04:29 06/08/18 04:29 Labs: Short CBC 06/07/18 06/08/18 Range/Units 19:17 04:29 WBC 5.5 6.8 (4.3-11.1) K/mcL Hgb 7.2 L 7.8 L (11.5-15.4) g/dL Hct 23.5 L 25.9 L (35.3-44.9) % Plt Count 224 244 (140-400) K/mcL Neutrophils # 4.3 (1.6-8.9) K/mcL BMP 06/07/18 06/08/18 18:45 04:29 Sodium 133 L 136 Potassium 3.8 4.5 Chloride 95 L 93 L Carbon Dioxide 29 28 BUN 21 H 26 H Creatinine 2.51 H 2.96 H Glucose 269 H 234 H Calcium 8.5 L 8.4 L Cardiac Enzymes 06/07/18 Range/Units 18:45 Troponin I 0.03 (< 0.04) ng/mL Liver Function 06/07/18 Range/Units 18:45 Total Bilirubin 0.3 (0.3-1.0) mg/dL Direct Bilirubin 0.1 (0.0-0.2) mg/dL AST 11 L (13-39) Units/L ALT 4 L (7-52) Units/L Alkaline Phosphatase 124 H (34-104) Units/L Albumin 3.3 L (3.5-5.7) g/dL - ABG Interpretation ABG results: PT/INR, D-dimer PT 21.8 Seconds (9.4-12.1) H 06/07/18 18:45 - Impressions Impressions Chest X-Ray 06/07/18 18:06 IMPRESSION: 1. Stable mild enlargement of the cardiac silhouette. No superimposed pulmonary finding to account for patient's sepsis. D/ / Laith Olivas MD / Laith Olivas MD Interpreting Provider: Laith Olivas MD Abdomen/Pelvis CT 06/08/18 20:42 IMPRESSION: Skin thickening and stranding is seen involving the lower abdominal wall, concerning for cellulitis or edema. There is no evidence of abscess or soft tissue gas. This was noted on the prior examination. Cholelithiasis. Stable tiny calculus is seen within the distal common bile duct, consistent with choledocholithiasis. No significant intrahepatic bile duct dilatation is seen. D/ / Janine Faith MD / Janine Faith MD Interpreting Provider: Janine Faith MD Consult Discharge Plan - Plan Referrals: Ender Hodge MD [Primary Care Provider] -
[2018-06-08 09:46] LABS: Hepatitis B Surface Antibody < 3.10 mIU/mL
[2018-06-08] MEDS: Lactulose Oral Soln 20 GM/30 ML UDC PO SCH (09:53)
[2018-06-08] MEDS: Gabapentin 100 MG CAPSULE PO SCH ×3 (09:53→20:38)
[2018-06-08] MEDS: Metoprolol XL (24 HR) Succ 50 MG TAB.ER.24H PO SCH (09:53)
[2018-06-08 09:57] LABS: Hepatitis B Surface Antigen Nonreactive (Nonreactive)
--- NOTE | 2018-06-08 10:06 | Infectious Disease Consult ---
Date of Encounter: 06/08/18 Time of Encounter: 10:00 Assessment and Plan (1) Infection of central venous catheter Status: Acute Assessment and plan: Positive blood cultures on permacath. Patient was sent from dialysis center to hospital due to positive culture results. -Afebrile, WBC WNL, hemodynamically stable -06/07/2018 Blood culture pending x2 -06/07/2018 wound-catheter site cultures pending -06/02/2018 catheter culture from dialysis center growing carbapenem resistant acinetobacter baumanni and providencia stuartii -Chest x-ray unremarkable for acute cardiopulmonary process -Abdominal CT demonstrating skin thickening and stranding in the lower abdominal wall concerning for cellulitis or edema. No abscess or soft tissue gas, this is unchanged from prior exam. Cholelithiasis and quality to cholelithiasis seen in the distal common duct. No significant intrahepatic bile duct dilation. -Examination of permacath site does not appear infected. Patient denies any systemic signs of infection and does not appear clinically ill. Plan: -continue cftazidime day 2 (started 06/07) -continue colistin day 2 (started 06/07) -away blood culture results -Continue contact precautions Qualifiers: Encounter type: initial encounter Qualified Code(s): T80.219A - Unspecified infection due to central venous catheter, initial encounter (2) MDR Acinetobacter baumannii infection Status: Acute Assessment and plan: Patient has history of P. aeruginosa MDRO and Acinetobacter MDRO in sputum. -06/02/2018 catheter culture from dialysis center growing carbapenem resistant acinetobacter baumanni and providencia stuartii -Upon review of medical records added last admission on 05/02/2018 she was transferred to [facility] due to sputum cultures 05/09/2018, which demonstrated growth of P. aeruginosa MDRO and Acinetobacter MDRO that was alston- resistant to antibiotics, and there was no infectious disease doctor available at that time. -Patient denies any shortness of breath, cough, fever, chills. Plan: -continue cftazidime day 2 (started 06/07) -continue colistin day 2 (started 06/07) -away blood culture results -Continue contact precautions (3) Anemia Status: Acute Assessment and plan: Anemia that appears chronic in nature. In the setting of ESRD. -No obvious active bleeding -management for primary team Qualifiers: Anemia type: iron deficiency Iron deficiency anemia type: chronic blood loss Qualified Code(s): D50.0 - Iron deficiency anemia secondary to blood loss (chronic) (4) Diabetes mellitus Status: Acute Assessment and plan: History of diabetes on insulin. 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 -Right-sided permacath -nephrology following and managing dialysis (6) Tracheostomy care Status: Acute Assessment and plan: Chronic tracheostomy due to history of pneumonia. (7) Morbid obesity Status: Acute Assessment and plan: Morbid obesity, bedbound Infectious Disease HPI - Data of Consult Patient: known to practice within the last 3 years Consult date: 06/07/18 Requesting Physician: Eliseo Saravia MD Primary Care Provider: Ender Hodge MD - Consult Narrative Reason for consult: MDRO History of present illness: Ms. Denson is a 52 year old female who presented to [facility] on 06/07/2018 stating that she had an infection. Infectious disease was consulted on 06/07/2018 due to MDRO grown on cultures at dialysis and for recommendations on antibiotics. The patient has a past medical history of ESRD on dialysis, tracheostomy, diabetes, morbid obesity, pulmonary embolism, CHF, COPD, CAD. Upon examination of the patient she stated that she was at dialysis yesterday when afterwards they told her she needed to go to the hospital because her cultures were positive for bacteria. She does not know what bacteria was positive or which culture whether that is catheter or blood culture. She stated that she has been feeling well and not sick. She denies fever, chills, shortness of breath, cough, chest pain, abdominal pain, nausea, diarrhea. She denies smoking, drug use, alcohol use. She denies sick contacts. Initial vitals and presentation are afebrile, HR 96, BP 117/47. WBC 5.5, hemoglobin 7.2, platelets 224. INR 1.9, sodium 133, potassium 3.8, lactic acid 1.0, alkaline phosphatase 124, AST 11, ALT 4, albumin 3.3. Blood and wound cultures were taken. Chest x-ray unremarkable for acute cardiopulmonary process. -Abdominal CT demonstrating skin thickening and stranding in the lower abdominal wall concerning for cellulitis or edema. No abscess or soft tissue gas, this is unchanged from prior exam. Cholelithiasis and quality to cholelithiasis seen in the distal common duct. No significant intrahepatic bile duct dilation. The patient was given a dose of cftazidime and colistin in ED. Upon review of medical records added last admission on 05/02/2018 she was tra nsferred to [facility] due to sputum cultures 05/09/2018, which demonstrated growth of P. aeruginosa MDRO and Acinetobacter MDRO that was alston- resistant to antibiotics, and there was no infectious disease doctor available at that time. CC: Eliseo Saravia MD Past Med Surg Social Fam HX - Past Medical History Attestation: Yes The following information was validated with the patient. Source: patient Medical history: diabetes, renal disease, GERD, hyperlipidemia, pulmonary embolus, thyroid disease, coronary artery disease, CHF, COPD Additional medical history: chronic bronchitis, morbid obesity, pneumonia, hyperparathyroidism, anemia, Vit D deficiency, edema, hypopotassemia, sleep apnea Psychiatric history: anxiety, depression - Past Surgical History Surgical History: other Additional surgical history: tracheostomy from respiratory failure , D & C, ewiiaapaayp rine ablation - Social History Smoking Status: Never smoker Smokeless Tobacco Status: No Alcohol use: none Drug use: none - Family History Mother Living Status: Still Living Hx Family Cardiac Disorders: Yes (Hypertension) Hx Family Endocrine Disorder: Yes (Diabetes) Infectious Disease-CN:Meds Acetaminophen [Tylenol] 650 mg PO Q6HR PRN 05/03/18 [History] RX: B Complex W-C No.20/Folic Acid [Nephrocaps Softgel] 1 mg PO DAILY 05/03/18 [History] RX: Baclofen [Lioresal] 10 mg PO TID PRN 05/03/18 [History] RX: Docusate [Colace] 100 mg PO BID 05/03/18 [History] RX: Gabapentin [Neurontin] 200 mg PO TID 05/03/18 [History] RX: Ipratropium [ATROVENT Inhaler] 2 puff IH Q4H PRN 05/03/18 [History] RX: Lactobacillus [Culturelle] 1 cap PO BID 05/03/18 [History] RX: Lactulose [Enulose] 10 gm PO DAILY 05/03/18 [History] RX: Levothyroxine [Synthroid] 250 mcg PO 0630 05/03/18 [History] RX: Metoprolol XL (24 HR) Succ [Toprol Xl] 50 mg PO DAILY 05/03/18 [History] RX: Nitroglycerin [Nitrostat] 0.4 mg SL Q5MIN PRN MDD MAX DOSES X3 CALL 911 05/03/18 [History] RX: Sevelamer [Renvela] 800 mg PO TIDWM 05/03/18 [History] RX: Trazodone HCl 100 mg PO HS 05/03/18 [History] Bisacodyl [Dulcolax] 10 mg PO DAILY PRN 06/09/18 [History] Bumetanide [Bumex] 1 mg PO DAILY 06/09/18 [History] FentaNYL PATCH [Duragesic] 25 mcg TD Q72H 06/09/18 [History] GuaiFENesin/Dextromethorphan [Robitussin/DM] 5 ml PO Q4HR PRN 06/09/18 [History] Insulin Glargine [Lantus] 20 unit SQ DAILY 06/09/18 [History] Loperamide HCl [Anti-Diarrheal] 2 mg PO DAILY PRN 06/09/18 [History] Omeprazole [PriLOSEC] 20 mg PO DAILY 06/09/18 [History] Oxycodone HCl [Oxaydo] 7.5 mg PO Q4H PRN 06/09/18 [History] RX: Chlorhexidine Rinse 15 ml MM BID 06/09/18 [History] Rosuvastatin Calcium [Crestor] 5 mg PO HS 06/09/18 [History] Warfarin [Coumadin] 7.5 mg PO 1800 06/09/18 [History] Allergy/AdvReac Type Severity Reaction Status Date / Time albuterol Allergy Difficulty Verified 05/03/18 07:52 Breathing lisinopril Allergy Difficulty Verified 05/03/18 07:52 Breathing Sulfa (Sulfonamide Allergy Difficulty Verified 05/03/18 07:52 Antibiotics) Breathing - Constitutional Constitutional: Absent: chills, headache(s), lethargy, malaise, weakness - EENT Eyes: Absent: change in vision, loss of vision - Cardiovascular Cardiovascular: Absent: chest pain, diaphoresis, edema, lightheadedness, palpitations - Respiratory Respiratory: Absent: cough, dyspnea, hemoptysis, wheezing - Gastrointestinal Gastrointestinal: Absent: abdominal pain, change in stool character, diarrhea, nausea, vomiting - Genitourinary Genitourinary: Absent: difficulty urinating, dysuria - Musculoskeletal Musculoskeletal: Absent: back pain, muscle cramps, muscle weakness - Integumentary Integumentary: Absent: new lesions, rash, skin ulcer, sores, swelling - Neurological Neurological: Absent: confusion, dizziness - Psychiatric Psychiatric: Absent: behavioral changes, confusion Exam - Constitutional Vitals: Temp Pulse Resp BP Pulse Ox 99.4 F 78 18 106/41 96 06/08/18 07:40 06/08/18 07:40 06/08/18 07:40 06/08/18 07:40 06/08/18 07:40 Exam: Gen.: Vitals noted. No acute distress. AAOx3 HEENT: oropharynx clear, Normocephalic, atraumatic Neck: Supple. No adenopathy. Cardiac: RRR, no murmur, +S1/S2 Pulmonary: mild rhonchi bilaterally, no wheezes, rales, equal chest expansion Abdomen: soft, nontender, Bowel sounds noted, no guarding MSK: no joint swelling noted skin: no skin lesions are ulcers noted, right-sided chest permacath Extremities: + BLE edema, nontender calf, no cyanosis or clubbing Neuro: A&Ox3, moves all extremities Psych: Appropriate mood and behavior Infectious Disease CN: Results - Labs CBC & Chem 7: 06/09/18 06:49 06/09/18 08:49 Cultures: Cultures 06/07/18 19:22 Wound Culture - Preliminary Catheter Site Culture is incubating. 06/07/18 18:53 Blood Culture - Preliminary Peripheral Venipuncture Culture is incubating and being continuously monitored for growth. Final report to follow. 06/07/18 18:45 Blood Culture - Preliminary Peripheral Venipuncture Culture is incubating and being continuously monitored for growth. Final report to follow. Consult Discharge Plan - Plan Referrals: Ender Hodge MD [Primary Care Provider] - - Attending Attestation I examined this patient and my medical decision-making was reviewed with the Resident Physician. I agree with the documented findings, disposition and treatment plan as described except to the extent set forth below. This is an addendum to original report dictated by resident physician. Please refer to resident's note for full detail. Patient is a 52-year-old woman who has chronic respiratory failure with a trac heostomy that is colonized with multidrug resistant organisms. She also has incisional disease on hemodialysis and has a permacath on the chest. Previously my theory was that the tracheostomy history of stripping phlegm on the catheter and the cephalic keeps getting reinfected colonized. Last time patient was here she grew pseudomonas aeruginosa that was alston resistant including albicans and colistin and she also grew Acinetobacter baumanni that was multidrug resistant. Patient was transferred to [facility] because it was not available for that week. Patient at [facility] did not get treated and was told by the ID people that she is just colonized and no treatment is necessary. Patient apparently well-known dialysis patient that a swab culture from around the dialysis catheter. Exact reason why is not clear. Even patient tells me she has no symptoms and she was not having any complaints and she had no pain no swelling or redness no other issues. Of course the results came back positive for Acinetobacter baumanni and Providencia stuartii. The Acinetobacter was alston resistant and the provendecia was susceptible to ceftazidime. He did call from the emergency department and told me the results. The patient on vancomycin and ceftazidime until I see her. Currently patient laying in bed and appears comfortable no sepsis criteria does not appear toxic bacteremia.Patient has no fevers no tachycardia and no leukocytosis no tachypnea no other complaints. Patient's frustrated and tells meshe doesn ot know why she is here.The dialy s is cathete rontherightchestappearsint actwithnosurroundingerythemanoedemanopusnodrainageandnontendertopalpation. a/p continue current antibiotics await cultures to finalize patient will need a fistula because structurely the trach will keep dripping and contaminate the perm-a-cath. maybe a fistula will help avoid reinfection
[2018-06-08] MEDS ORDERED: Darbepoetin 100 MCG/0.5 ML SYRINGE SQ SCH (11:00)
--- NOTE | 2018-06-08 11:23 | Nephrology Consult Note ---
<Claudine Holden - Last Filed: 06/08/18 12:36> Date of Encounter: 06/08/18 Time of Encounter: 11:21 Assessment and Plan (1) MDR Acinetobacter baumannii infection Current Visit: Yes Status: Acute per ID. (2) Morbid obesity Current Visit: Yes Status: Acute Outpatient counseling. (3) Tracheostomy care Current Visit: Yes Status: Acute Per RTS. (4) Acute and chronic respiratory failure with hypoxia Current Visit: No Status: Acute Continue vent support. (5) Anemia Current Visit: No Status: Acute Goal Hgb is 10-11. Hgb is 7.8. Aranesp ordered weekly. Qualifiers: Anemia type: iron deficiency Iron deficiency anemia type: chronic blood loss Qualified Code(s): D50.0 - Iron deficiency anemia secondary to blood loss (chronic) (6) ESRD (end stage renal disease) on dialysis Current Visit: Yes Status: Acute Current regimen is MWF, last treatment Tuesday per patient. Plan for HD tomorrow. Renal diet Renal vitamins Strict I/O Avoid nephrotoxins and renal dose all medications. History of Present Illness - Reason for Consult Consult date: 06/08/18 end stage renal disease Requesting physician: Eliseo Saravia - [facility] History of Present Illness Ms. Denson is a 52 year old female who presented to ED [facility]. PMH: ESRD on dialysis, tracheostomy, diabetes, morbid obesity, pulmonary embolism, CHF, COPD, CAD. Current regimen is MWF at [facility] [place]. Spoke with ID, attempting to get records from both HD unit and [place] where she was recently treated for infection of previous permcath. Will plan for HD tomorrow, may remove line for line holiday if indicated with ID after treatment tomorrow. She resides in an [place]. She denies tobacco, etoh, or illicit drug use. FH + for CKD with mother. Past Med Surg Social Fam HX - Past Medical History Medical history: diabetes, renal disease, GERD, hyperlipidemia, pulmonary embolus, thyroid disease, coronary artery disease, CHF, COPD Additional medical history: chronic bronchitis, morbid obesity, pneumonia, hyperparathyroidism, anemia, Vit D deficiency, edema, hypopotassemia, sleep apnea Psychiatric history: anxiety, depression - Past Surgical History Surgical History: other Additional surgical history: tracheostomy from respiratory failure , D & C, uterine ablation - Social History Smoking Status: Never smoker Smokeless Tobacco Status: No Alcohol use: none Drug use: none - Family History Mother Living Status: Still Living Hx Family Cardiac Disorders: Yes (Hypertension) Hx Family Endocrine Disorder: Yes (Diabetes) Medications and Allergies Acetaminophen [Tylenol] 650 mg PO Q6HR PRN 05/03/18 [History] B Complex W-C No.20/Folic Acid [Nephrocaps Softgel] 1 mg PO DAILY 05/03/18 [History] Baclofen [Lioresal] 10 mg PO TID PRN 05/03/18 [History] Docusate [Colace] 100 mg PO DAILY 05/03/18 [History] Gabapentin [Neurontin] 200 mg PO TID 05/03/18 [History] Ipratropium [ATROVENT Inhaler] 2 puff IH Q4H PRN 05/03/18 [History] Lactobacillus [Culturelle] 1 cap PO DAILY 05/03/18 [History] Lactulose [Enulose] 10 gm PO DAILY 05/03/18 [History] Levothyroxine [Synthroid] 250 mcg PO 0630 05/03/18 [History] Metoprolol XL (24 HR) Succ [Toprol Xl] 50 mg PO DAILY 05/03/18 [History] Nitroglycerin [Nitrostat] 0.4 mg SL Q5M PRN MDD MAX DOSES X3 CALL 911 05/03/18 [History] Sevelamer [Renvela] 800 mg PO TIDWM 05/03/18 [History] Trazodone HCl 100 mg PO HS 05/03/18 [History] Darbepoetin [Aranesp] 40 mcg SQ QWEEK syringe 05/17/18 [Rx] Dextrose 50 % in Water (Syg) [Dextrose 50% (Syg)] 25 ml IVP AD PRN syringe 05/17/18 [Rx] Dextrose Gel [Gluctose] 15 gm PO ONCE PRN tube 05/17/18 [Rx] Dextrose Gel [Gluctose] 30 gm PO ONCE PRN tube 05/17/18 [Rx] DiphenhydraMINE [Benadryl] 1 appl TP TID PRN tube 05/17/18 [Rx] DiphenhydraMINE [Benadryl] 25 mg PO Q6HR PRN capsule 05/17/18 [Rx] Glucagon, Human Recombinant [Glucagen] 1 mg IM ONCE PRN vial 05/17/18 [Rx] Heparin 4,000 unit IV ONCE PRN vial 05/17/18 [Rx] Heparin 4,000 unit IV ONCE PRN vial 05/17/18 [Rx] Heparin 4,500 unit IVP Q6H PRN vial 05/17/18 [Rx] Heparin 9,000 unit IVP Q6HR PRN vial 05/17/18 [Rx] Hydrocortisone 1% CREAM [Cortaid] 1 appl TP BID bottle 05/17/18 [Rx] Insulin DETEMIR [Levemir] 45 unit SQ HS q2leieg 05/17/18 [Rx] Insulin LISPRO [HumaLOG] 0 units SQ HS vial 05/17/18 [Rx] Insulin LISPRO [HumaLOG] 0 units SQ TIDAC vial 05/17/18 [Rx] Insulin LISPRO [HumaLOG] 10 units SQ TIDWM vial 05/17/18 [Rx] Naloxone [Narcan] 0.4 mg IVP Q2MIN PRN inj 05/17/18 [Rx] Nystatin POWDER [Nystop] 1 appl TP TID PRN bottle 05/17/18 [Rx] Pantoprazole [Protonix] 40 mg IVP Q12HR vial 05/17/18 [Rx] Allergy/AdvReac Type Severity Reaction Status Date / Time albuterol Allergy Difficulty Verified 05/03/18 07:52 Breathing lisinopril Allergy Difficulty Verified 05/03/18 07:52 Breathing Sulfa (Sulfonamide Allergy Difficulty Verified 05/03/18 07:52 Antibiotics) Breathing Review of Systems All Systems review (narrative): The remainder of the systems are negative. Constitutional: no chills, no fatigue, no fever(s) Cardiovascular: no chest pain, no dyspnea, no edema Respiratory: no cough Gastrointestinal: no abdominal pain, no change in bowel habits, no diarrhea, no nausea, no vomiting Exam - Vital Signs Vital signs: Initial Vital Signs Resp Pulse Ox 24 100 06/07/18 17:52 06/07/18 17:52 Vital Signs - Last 8 Hours Temp Pulse Resp BP Pulse Ox 06/08/18 11:16 18 96 06/08/18 07:40 99.4 F 78 18 106/41 96 06/08/18 07:37 19 98 06/08/18 05:03 98.2 F 84 17 102/42 99 06/08/18 03:56 16 100 Intake and Output 06/07/18 06/08/18 06/08/18 23:59 07:59 15:59 Intake Total Output Total 0 / 0 Balance 0 / 0 Intake: IV Fluids Tazicef 1,000 mg In Water for inj. (sterile) 10 ML @ 600 mls/ hr IVP NOW STA Rx#:[id number] Output: Urine 0 / 0 Other: Stool Size Copious Stool Consistency formed Stool Color Brown # Bowel Movements 1 Weight 174.746 kg 171.5 kg Blood Glucose* 241 Patient Weight 06/08/18 23:59 Weight 171.5 kg - General Appearance General appearance: well-developed, well-nourished, obese EENT: ATNC, hearing intact, vision intact Neck: supple Respiratory: clear Cardiology: no edema, normal S1, normal S2 - Dialysis Access Dialysis Vascular Access: Venous Catheter (DRSG C/D/I) Gastrointestinal: normoactive bowel sounds, no tenderness, no guarding Integumentary: no rash, warm and dry Neurologic: alert and oriented x3 Musculoskeletal: no deformities, no erythema Psychiatric: mood/affect appropriate, cooperative Results - Lab Results 06/08/18 04:29 06/08/18 04:29 Most recent lab results Calcium 8.4 mg/dL (8.6-10.3) L 06/08/18 04:29 Phosphorus 3.6 mg/dL (2.7-4.5) 06/07/18 18:45 Magnesium 1.7 mg/dL (1.6-2.6) 06/07/18 18:45 Consult Discharge Plan - Plan Referrals: Ender Hodge MD [Primary Care Provider] - <Gonsalo Jacobs - Last Filed: 06/09/18 01:30> Date of Encounter: 06/08/18 Assessment and Plan (1) Anemia Current Visit: No Status: Acute Qualifiers: Anemia type: iron deficiency Iron deficiency anemia type: chronic blood loss Qualified Code(s): D50.0 - Iron deficiency anemia secondary to blood loss (chronic) (2) Tracheostomy care Current Visit: Yes Status: Acute (3) Acute and chronic respiratory failure with hypoxia Current Visit: No Status: Acute (4) MDR Acinetobacter baumannii infection Current Visit: Yes Status: Acute (5) Morbid obesity Current Visit: Yes Status: Acute (6) ESRD (end stage renal disease) on dialysis Current Visit: Yes Status: Acute Exam - Vital Signs Vital signs: Initial Vital Signs Resp Pulse Ox 24 100 06/07/18 17:52 06/07/18 17:52 Vital Signs - Last 8 Hours Temp Pulse Resp BP Pulse Ox 06/09/18 00:54 16 124/41 100 06/09/18 00:36 98.1 F 70 16 124/41 100 06/08/18 22:14 17 130/54 100 06/08/18 21:00 100 06/08/18 19:41 98.5 F 78 16 130/54 100 Intake and Output 06/08/18 06/08/18 06/09/18 15:59 23:59 07:59 Intake Total 340 / 340 560 / 560 Output Total 0 / 0 Balance 340 / 340 560 / 560 Intake: IV Fluids 60 / 60 Tazicef 1,000 mg In Water for inj. (sterile) 10 ML @ 600 mls/ hr IVP Q24H MICHELLE Rx#:[id number] Coly-Mycin M PARENTERAL 150 MG 50 / 50 In 0.9 % Sodium Chloride 50 ML @ 100 mls/hr IVPB Q24H [facility] Rx#: [id number] Oral 340 / 340 500 / 500 Output: Urine 0 / 0 Other: Blood Glucose* 298 283 Results - Lab Results 06/08/18 04:29 06/08/18 04:29 Most recent lab results Calcium 8.4 mg/dL (8.6-10.3) L 06/08/18 04:29 Phosphorus 3.6 mg/dL (2.7-4.5) 06/07/18 18:45 Magnesium 1.7 mg/dL (1.6-2.6) 06/07/18 18:45 - Attending Attestation I examined this patient and my medical decision-making was reviewed with the Resident Physician/COMMUNITY AMBASSADOR. I agree with the documented findings, disposition and treatment plan as described except to the extent set forth below. 52 y o female with PMH of DM, HTN, morbid obesity, chronic resp failure with trach a resident of [facility] where she presented today with positive blood cultures s/p recent hospital stay for similar ending up transferred to [facility]. Pt seen and examined with complaints. Exam shows morbidly obese female trach, lungs with coarse BS bilat, heart S1S2 LE with trace edema bilat. Lytes stable. s/p HD yesterday, next HD planned for tomorrow. Await ID recs on abx and line holiday
[2018-06-08] MEDS ORDERED: CEFTAZIDIME IVP SCH (18:00)
[2018-06-08] MEDS ORDERED: WATER FOR INJ IVP SCH (18:00)
[2018-06-08] MEDS ORDERED: Colistin (Colistimethate) 150 MG in 0.9 % Sodium Chloride 50 ML IVPB SCH (21:00)
[2018-06-08] MEDS ORDERED: traZODone 50 MG TABLET PO SCH (21:00)
[2018-06-08] MEDS: Ipratropium 1 PUFF INHALER IH PRN (22:14)
--- NOTE | 2018-06-09 03:27 | Electrocardiograph Report ---
[facility] Test Date: 2018-06-07 Pat Name: Diana Denson Department: [id number] Room: 01 Gender: F Onboarding Specialist: : [id number] Requested By: Dayana Carter Order Number: [id number] Reading MD: Deangelo Frias Measurements Intervals [place] Rate: 80 P: -33 NV: 183 QRS: 120 QRSD: 91 T: 36 QT: 378 QTc: 436 Interpretive Statements Sinus rhythm Right axis deviation Electronically Signed On 06-09-2018 3:26:11 EST by Deangelo Frias
[2018-06-09] MEDS: Pantoprazole 40 MG VIAL IVP SCH ×2 (05:04→17:20)
[2018-06-09] MEDS: *HR* Heparin 5,000 UNIT/ML VIAL SQ SCH ×2 (05:05→17:19)
[2018-06-09] MEDS: Acetaminophen 325 MG TABLET PO PRN (06:58)
[2018-06-09] MEDS: Baclofen 10 MG TABLET PO PRN (06:58)
[2018-06-09 07:20] LABS: Basophils # 0.1 K/mcL (0.0-0.2); Basophils % 1.3 %; Eosinophils # 0.3 K/mcL (0.0-0.6); Hematocrit 23.9 % (35.3-44.9); Hemoglobin 7.2 g/dL (11.5-15.4); Immature Granulocytes % 0.3 % (0-4); Lymphocytes # 1.2 K/mcL (0.6-4.6); Lymphocytes % 20.3 %; Mean Corpuscular HGB Conc 30.1 g/dL (31.6-35.5); Mean Corpuscular Hemoglobin 28.5 pg (28.0-33.3); Mean Corpuscular Volume 94.5 fL (83.0-100.0); Mean Platelet Volume 8.9 fL (9.4-12.4); Monocytes # 0.5 K/mcL (0.0-1.3); Monocytes % 7.6 %; Neutrophils # 3.9 K/mcL (1.6-8.9); Platelet Count 251 K/mcL (140-400); Red Blood Count 2.53 M/mcL (3.82-4.97); Red Cell Distribution Width 16.5 % (11.5-14.5); Segmented Neutrophils % 65.5 %
[2018-06-09] MEDS: Lactulose Oral Soln 20 GM/30 ML UDC PO SCH (08:02)
[2018-06-09] MEDS: Gabapentin 100 MG CAPSULE PO SCH ×2 (08:02→16:43)
[2018-06-09] MEDS: Insulin LISPRO 300 UNITS/3 ML VIAL SQ SCH ×3 (08:03→17:18)
--- NOTE | 2018-06-09 09:18 | Infectious Disease Progress No ---
Date of Encounter: 06/09/18 Time of Encounter: 09:18 - Assessment and Plan (1) Infection of central venous catheter Status: Acute Positive blood cultures on permacath. Patient was sent from dialysis center to hospital due to positive culture results. -Afebrile, WBC WNL, hemodynamically stable -06/07/2018 Blood culture preliminary NTD x2 -06/07/2018 wound-catheter site cultures NTD preliminary -06/02/2018 catheter culture from dialysis center growing carbapenem resistant acinetobacter baumanni and providencia stuartii -Chest x-ray unremarkable for acute cardiopulmonary process -Abdominal CT demonstrating skin thickening and stranding in the lower abdominal wall concerning for cellulitis or edema. No abscess or soft tissue gas, this is unchanged from prior exam. Cholelithiasis and quality to cholelithiasis seen in the distal common duct. No significant intrahepatic bile duct dilation. -Examination of permacath site does not appear infected. Patient denies any systemic signs of infection and does not appear clinically ill. Plan: -The patient displays no signs of systemic infection. She has been afebrile with normal white blood cell count during her entire admission. She denies fever, chills, pain at HD catheter site. The dialysis center where the catheter culture was taken was called today and stated that they had cultured the skin around the HD catheter which grew the bacteria. However, we already know that she is colonized with the same bacteria around her trach site during her last admission for which she was transferred to [facility] due to concern of MDRO. During the previous admission it was determined that she was colonized with the concerning bacteria MDRO and she was not placed on antibiotics. HD catheter was exchanged during that admission. Will discontinue cftazidime and colistin. Recommend to not remove perma catheter. Will only order cultures should the patient becomes febrile or elevated WBC. -Recommends the patient get a fistula as soon as possible to continue dialysis, so to help prevent recurrence infection. 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 -06/02/2018 catheter culture from dialysis center growing carbapenem resistant acinetobacter baumanni and providencia stuartii -Upon review of medical records added last admission on 05/02/2018 she was transferred to [facility] due to sputum cultures 05/09/2018, which demonstrated growth of P. aeruginosa MDRO and Acinetobacter MDRO that was alston- resistant to antibiotics, and there was no infectious disease doctor available at that time. -Patient denies any shortness of breath, cough, fever, chills. Plan: -plan as above. Patient is known colonization of Acinetobacter MDRO. -Continue contact precautions (3) Anemia Status: Acute Anemia that appears chronic in nature. In the setting of ESRD. -No obvious active bleeding -management for primary team Qualifiers: Anemia type: iron deficiency Iron deficiency anemia type: chronic blood loss Qualified Code(s): D50.0 - Iron deficiency anemia secondary to blood loss (chronic) (4) Diabetes mellitus Status: Acute History of diabetes on insulin. -Management her primary team Qualifiers: Diabetes mellitus type: type 2 Diabetes mellitus fdc insulin use: with fdc use Diabetes mellitus complication status: with kidney complications Diabetes mellitus complication detail: with chronic kidney disease Chronic kidney disease stage: on chronic dialysis Qualified Code(s): E11.22 - Type 2 diabetes mellitus with diabetic chronic kidney disease; N18.6 - End stage renal disease; Z79.4 - manager intermediate (current) use of insulin; Z99.2 - Dependence on renal dialysis (5) ESRD (end stage renal disease) on dialysis Status: Deleted ESRD on dialysis. -Right-sided permacath -nephrology following and managing dialysis -Recommends the patient get a fistula as soon as possible to continue dialysis, so to help prevent recurrence infection. (6) Tracheostomy care Status: Acute Chronic tracheostomy due to history of pneumonia. (7) Morbid obesity Status: Acute Morbid obesity, bedbound - Subjective Interval history: Patient seen and examined at bedside today. She is alert and oriented times 3 in no acute distress. She denies fever, chills, chest pain, shortness of breath, cough, pain at HD catheter site, abdominal pain, nausea. Infect Dis PN-Objective Data - Labs CBC & Chem 7: 06/09/18 06:49 06/09/18 08:49 Labs: Laboratory Results - last 24 hr 06/08/18 06/08/18 06/08/18 07:31 08:38 11:09 WBC RBC Hgb Hct MCV MCH MCHC RDW Plt Count MPV Immature Gran % Seg Neutrophils % Lymphocytes % Monocytes % Eosinophils % Basophils % Neutrophils # Lymphocytes # Monocytes # Eosinophils # Basophils # POC Glucose 241 H 298 H Hep Bs Antigen Nonreactive Hep Bs Antibody < 3.10 L Specimen Rejected 06/08/18 06/08/18 06/09/18 16:09 20:25 06:49 WBC 6.0 RBC 2.53 L Hgb 7.2 L Hct 23.9 L MCV 94.5 MCH 28.5 MCHC 30.1 L RDW 16.5 H Plt Count 251 MPV 8.9 L Immature Gran % 0.3 Seg Neutrophils % 65.5 Lymphocytes % 20.3 Monocytes % 7.6 Eosinophils % 5.0 Basophils % 1.3 Neutrophils # 3.9 Lymphocytes # 1.2 Monocytes # 0.5 Eosinophils # 0.3 Basophils # 0.1 POC Glucose 236 H 283 H Hep Bs Antigen Hep Bs Antibody Specimen Rejected 06/09/18 06:49 WBC RBC Hgb Hct MCV MCH MCHC RDW Plt Count MPV Immature Gran % Seg Neutrophils % Lymphocytes % Monocytes % Eosinophils % Basophils % Neutrophils # Lymphocytes # Monocytes # Eosinophils # Basophils # POC Glucose Hep Bs Antigen Hep Bs Antibody Specimen Rejected Miscellaneous Cultures: Cultures 06/07/18 19:22 Wound Culture - Preliminary Catheter Site Culture is incubating. 06/07/18 18:53 Blood Culture - Preliminary Peripheral Venipuncture Culture is incubating and being continuously monitored for growth. Final report to follow. 06/07/18 18:45 Blood Culture - Preliminary Peripheral Venipuncture Culture is incubating and being continuously monitored for growth. Final report to follow. Serology 06/08/18 Range/Units 08:38 Hep Bs Antigen Nonreactive (Nonreactive) Hep Bs Antibody < 3.10 L (10.00 - ) mIU/mL - Impressions Impressions Abdomen/Pelvis CT 06/08/18 20:42 IMPRESSION: Skin thickening and stranding is seen involving the lower abdominal wall, concerning for cellulitis or edema. There is no evidence of abscess or soft tissue gas. This was noted on the prior examination. Cholelithiasis. Stable tiny calculus is seen within the distal common bile duct, consistent with choledocholithiasis. No significant intrahepatic bile duct dilatation is seen. D/ / Janine Faith MD / Janine Faith MD Interpreting Provider: Janine Faith MD Exam - Constitutional Vitals: Temp Pulse Resp BP Pulse Ox 97.8 F 74 16 118/59 100 06/09/18 07:15 06/09/18 07:15 06/09/18 07:15 06/09/18 07:15 06/09/18 07:15 Exam: Gen.: Vitals noted. No acute distress. AAOx3 HEENT: oropharynx clear, Normocephalic, atraumatic Neck: Supple. No adenopathy. Cardiac: RRR, no murmur, +S1/S2 Pulmonary: mild rhonchi bilaterally, no wheezes, rales, equal chest expansion Abdomen: soft, nontender, Bowel sounds noted, no guarding MSK: no joint swelling noted skin: no skin lesions are ulcers noted, right-sided chest permacath Extremities: + BLE edema, nontender calf, no cyanosis or clubbing Neuro: A&Ox3, moves all extremities Psych: Appropriate mood and behavior Consult Discharge Plan - Plan Referrals: Ender Hodge MD [Primary Care Provider] - - Attending Attestation I examined this patient and my medical decision-making was reviewed with the Resident Physician. I agree with the documented findings, disposition and treatment plan as described except to the extent set forth below. Patient seen and examined. clinically doing well cultures were obtained from skin d/w hospitalist team will observe off antibiotics but patient will need vascular to evaluate for fistula placement since these permacath will get contaminated from colonized tracheostomy
[2018-06-09] MEDS ORDERED: 0.9 % Sodium Chloride 1,000 ML ONE (09:28)
[2018-06-09] MEDS ORDERED: 0.9 % Sodium Chloride 250 ML IVC PRN (09:35)
[2018-06-09] MEDS ORDERED: *HR* Heparin 10,000 UNIT/10 ML VIAL IV PRN (09:35)
[2018-06-09 09:42] LABS: Calcium 8.7 mg/dL (8.6-10.3); Potassium 5.4 mEq/L (3.5-5.1)
[2018-06-09] MEDS ORDERED: 0.9 % Sodium Chloride 1,000 ML PRIME SCH (09:45)
--- NOTE | 2018-06-09 14:33 | Discharge Summary ---
- NOTES TO OUTPATIENT PROVIDER Notes to Outpatient Provider: Patient was discharged on her home Coumadin dosage. Patient has anemia with need monitoring of her hemoglobin and follow with nephrology . Orders not resulted at time of discharge: Pending orders 06/07/18 18:04 Urinalysis Reflex Cult & Micro [URIN] Urgent 06/07/18 18:47 Culture,Blood [BC] Stat 06/07/18 18:53 Culture,Blood [BC] Stat 06/08/18 00:07 Culture,Wound [RM] Stat 06/10/18 04:00 Chem 7 [Basic Metabolic Panel] AM 0400 Complete Blood Count w/o Diff [HEME] AM 0400 06/11/18 04:00 Chem 7 [Basic Metabolic Panel] AM 0400 Complete Blood Count w/o Diff [HEME] AM 0400 06/12/18 04:00 Chem 7 [Basic Metabolic Panel] AM 0400 Complete Blood Count w/o Diff [HEME] AM 0400 06/13/18 04:00 Chem 7 [Basic Metabolic Panel] AM 0400 Complete Blood Count w/o Diff [HEME] AM 0400 06/14/18 04:00 Chem 7 [Basic Metabolic Panel] AM 0400 Complete Blood Count w/o Diff [HEME] AM 0400 06/15/18 04:00 Chem 7 [Basic Metabolic Panel] AM 0400 Complete Blood Count w/o Diff [HEME] AM 0400 06/16/18 04:00 Chem 7 [Basic Metabolic Panel] AM 0400 Complete Blood Count w/o Diff [HEME] AM 0400 06/17/18 04:00 Chem 7 [Basic Metabolic Panel] AM 0400 Complete Blood Count w/o Diff [HEME] AM 0400 Date of Encounter: 06/09/18 Time of Encounter: 14:27 - Discharge Diagnosis (1) ESRD (end stage renal disease) on dialysis Priority: Secondary Status: Acute (2) MDR Acinetobacter baumannii infection Priority: Primary Status: Acute (3) Atrial flutter, chronic Priority: Secondary Status: Acute (4) COPD (chronic obstructive pulmonary disease) Priority: Secondary Status: Acute Qualifiers: COPD type: emphysema Emphysema type: other Qualified Code(s): J43.8 - Other emphysema (5) Chronic anemia Priority: Secondary Status: Acute (6) Diabetes mellitus Priority: Secondary Status: Acute Qualifiers: Diabetes mellitus type: type 2 Diabetes mellitus roasterman insulin use: with residential use Diabetes mellitus complication status: with kidney complications Diabetes mellitus complication detail: with chronic kidney disease Chronic kidney disease stage: on chronic dialysis Qualified Code(s): E11.22 - Type 2 diabetes mellitus with diabetic chronic kidney disease; N18.6 - End stage renal disease; Z79.4 - roasterman (current) use of insulin; Z99.2 - Dependence on renal dialysis (7) Hypothyroidism Priority: Secondary Status: Chronic Qualifiers: Hypothyroidism type: acquired Qualified Code(s): E03.9 - Hypothyroidism, unspecified (8) Chronic respiratory failure Priority: Primary Status: Acute Qualifiers: Respiratory failure complication: hypoxia and hypercapnia Qualified Code(s): J96.11 - Chronic respiratory failure with hypoxia; J96.12 - Chronic respiratory failure with hypercapnia Hospital course: Ms. Denson is a 52 year old female with past medical history of diabetes, ESRD on dialysis, chronic anemia, MDO infection was sent from dialysis center for positive blood cultures with MDRO bacteria. Patient did not have any significant systemic signs of illness. Patient was started on colistin and ceftazidime in ER. Blood cultures were sent. Infectious disease was consulted. However it was confirmed that patient's cultures were taken not from the blood but around the dialysis catheter. Patient has been known to have colonized MDRO Acinetobacter. Given patient without any systemic signs her antibiotics were stopped. Patient got dialyzed while in hospital and will be discharged back to longterm. She was continued on her home medications. She does have chronic anemia which will need close monitoring as outpatient and management with nephrology with Aranesp treatment. Patient otherwise stable to be dis charged to SNF today. Discharge discussed with: patient, nurse, transformation consultant - Time Spent with Patient Total time spent providing and/or coordinating discharge services: Greater than 30 minutes (38) - Discharge Medications Prescriptions: New Nystatin POWDER [Nystop] 1 appl TP TID PRN bottle PRN Reason: excoriation Continue Metoprolol XL (24 HR) Succ [Toprol Xl] 50 mg PO DAILY Sevelamer [Renvela] 800 mg PO TIDWM Nitroglycerin [Nitrostat] 0.4 mg SL Q5MIN PRN MDD MAX DOSES X3 CALL 911 PRN Reason: Chest Pain B Complex W-C No.20/Folic Acid [Nephrocaps Softgel] 1 mg PO DAILY Acetaminophen [Tylenol] 650 mg PO Q6HR PRN PRN Reason: Mild Pain Levothyroxine [Synthroid] 250 mcg PO 0630 Lactulose [Enulose] 10 gm PO DAILY Lactobacillus [Culturelle] 1 cap PO BID Gabapentin [Neurontin] 200 mg PO TID Docusate [Colace] 100 mg PO BID Baclofen [Lioresal] 10 mg PO TID PRN PRN Reason: Muscle Pain Ipratropium [ATROVENT Inhaler] 2 puff IH Q4H PRN PRN Reason: Shortness Of Breath Trazodone HCl 100 mg PO HS Warfarin [Coumadin] 7.5 mg PO 1800 Rosuvastatin Calcium [Crestor] 5 mg PO HS Oxycodone HCl [Oxaydo] 7.5 mg PO Q4H PRN PRN Reason: MODERATE TO SEVERE PAIN GuaiFENesin/Dextromethorphan [Robitussin/Dm] 5 ml PO Q4HR PRN PRN Reason: Cough Omeprazole [PriLOSEC] 20 mg PO DAILY Loperamide HCl [Anti-Diarrheal] 2 mg PO DAILY PRN PRN Reason: Loose Stool Insulin Glargine [Lantus] 20 unit SQ DAILY FentaNYL PATCH [Duragesic] 25 mcg TD Q72H Chlorhexidine Rinse 15 ml MM BID Bumetanide [Bumex] 1 mg PO DAILY Bisacodyl [Dulcolax] 10 mg PO DAILY PRN PRN Reason: Constipation Home Medications: Acetaminophen [Tylenol] 650 mg PO Q6HR PRN 05/03/18 [History] B Complex W-C No.20/Folic Acid [Nephrocaps Softgel] 1 mg PO DAILY 05/03/18 [History] Baclofen [Lioresal] 10 mg PO TID PRN 05/03/18 [History] Docusate [Colace] 100 mg PO BID 05/03/18 [History] Gabapentin [Neurontin] 200 mg PO TID 05/03/18 [History] Ipratropium [ATROVENT Inhaler] 2 puff IH Q4H PRN 05/03/18 [History] Lactobacillus [Culturelle] 1 cap PO BID 05/03/18 [History] Lactulose [Enulose] 10 gm PO DAILY 05/03/18 [History] Levothyroxine [Synthroid] 250 mcg PO 0630 05/03/18 [History] Metoprolol XL (24 HR) Succ [Toprol Xl] 50 mg PO DAILY 05/03/18 [History] Nitroglycerin [Nitrostat] 0.4 mg SL Q5MIN PRN MDD MAX DOSES X3 CALL 911 05/03/18 [History] Sevelamer [Renvela] 800 mg PO TIDWM 05/03/18 [History] Trazodone HCl 100 mg PO HS 05/03/18 [History] Bisacodyl [Dulcolax] 10 mg PO DAILY PRN 06/09/18 [History] Bumetanide [Bumex] 1 mg PO DAILY 06/09/18 [History] Chlorhexidine Rinse 15 ml MM BID 06/09/18 [History] FentaNYL PATCH [Duragesic] 25 mcg TD Q72H 06/09/18 [History] GuaiFENesin/Dextromethorphan [Robitussin/Dm] 5 ml PO Q4HR PRN 06/09/18 [History] Insulin Glargine [Lantus] 20 unit SQ DAILY 06/09/18 [History] Loperamide HCl [Anti-Diarrheal] 2 mg PO DAILY PRN 06/09/18 [History] Nystatin POWDER [Nystop] 1 appl TP TID PRN bottle 06/09/18 [Rx] Omeprazole [PriLOSEC] 20 mg PO DAILY 06/09/18 [History] Oxycodone HCl [Oxaydo] 7.5 mg PO Q4H PRN 06/09/18 [History] Rosuvastatin Calcium [Crestor] 5 mg PO HS 06/09/18 [History] Warfarin [Coumadin] 7.5 mg PO 1800 06/09/18 [History] Allergies/Adverse Reactions: Allergy/AdvReac Type Severity Reaction Status Date / Time albuterol Allergy Difficulty Verified 05/03/18 07:52 Breathing lisinopril Allergy Difficulty Verified 05/03/18 07:52 Breathing Sulfa (Sulfonamide Allergy Difficulty Verified 05/03/18 07:52 Antibiotics) Breathing Date of admission: 06/08/18 00:16 Primary care physician: Ender Hdoge MD Consults: 06/07/18 19:02 Consult to Infectious Diseases [CONS] Stat Consulting Provider: Infectious Disease [place] Reason for Consult: MDRO Time Notified: 19:02 Call Completed: Yes 06/07/18 21:00 Consult to Nephrology [CONS] Routine Consulting Provider: Kidney Nickie/ROBERT/GAIL/SHANTA Reason for Consult: hd mwf Call Completed: No 06/09/18 09:45 Consult to Dialysis [CONS] ONCE Discharging clinician: Eliseo Saravia - Constitutional Vitals: Temp Pulse Resp BP Pulse Ox 99.3 F 76 15 127/36 100 06/09/18 11:09 06/09/18 12:59 06/09/18 11:09 06/09/18 11:09 06/09/18 11:09 Exam: General: In no acute distress. Conversant. Morbildly Obese. Respiratory exam: CTAB. no accessory muscle use, rales, rhonchi, wheezes. Has tracheostomy Cardiovascular exam: RRR, +S1, +S2. no murmur, gallop, rubs. Rt Permacath. GI/Abdominal exam: morbidly obese, Extremities exam: no pedal edema. no calf tenderness Neurological exam: CN II-XII intact, AO X3, no focal deficits - Patient Status Disposition: Transfer SNF Condition: Fair - Discharge Instructions Follow Up With: Ender Hodge MD [Primary Care Provider] - - Diet and Activity Activity: as per physical therapy
--- NOTE | 2018-06-09 14:42 | Physician Discharge Referral ---
ExtendedCare Referral Info Institutional Level of Care: Skilled - Diagnosis (1) ESRD (end stage renal disease) on dialysis Status: Acute (2) MDR Acinetobacter baumannii infection Status: Acute (3) Atrial flutter, chronic Status: Acute (4) COPD (chronic obstructive pulmonary disease) Status: Acute (5) Chronic anemia Status: Acute (6) Diabetes mellitus Status: Acute (7) Hypothyroidism Status: Chronic (8) Chronic respiratory failure Status: Acute - Transfer Medications Home Medications: Acetaminophen [Tylenol] 650 mg PO Q6HR PRN 05/03/18 [History] B Complex W-C No.20/Folic Acid [Nephrocaps Softgel] 1 mg PO DAILY 05/03/18 [History] Baclofen [Lioresal] 10 mg PO TID PRN 05/03/18 [History] Docusate [Colace] 100 mg PO BID 05/03/18 [History] Gabapentin [Neurontin] 200 mg PO TID 05/03/18 [History] Ipratropium [ATROVENT Inhaler] 2 puff IH Q4H PRN 05/03/18 [History] Lactobacillus [Culturelle] 1 cap PO BID 05/03/18 [History] Lactulose [Enulose] 10 gm PO DAILY 05/03/18 [History] Levothyroxine [Synthroid] 250 mcg PO 0630 05/03/18 [History] Metoprolol XL (24 HR) Succ [Toprol Xl] 50 mg PO DAILY 05/03/18 [History] Nitroglycerin [Nitrostat] 0.4 mg SL Q5MIN PRN MDD MAX DOSES X3 CALL 911 05/03/18 [History] Sevelamer [Renvela] 800 mg PO TIDWM 05/03/18 [History] Trazodone HCl 100 mg PO HS 05/03/18 [History] Bisacodyl [Dulcolax] 10 mg PO DAILY PRN 06/09/18 [History] Bumetanide [Bumex] 1 mg PO DAILY 06/09/18 [History] Chlorhexidine Rinse 15 ml MM BID 06/09/18 [History] FentaNYL PATCH [Duragesic] 25 mcg TD Q72H 06/09/18 [History] GuaiFENesin/Dextromethorphan [Robitussin/Dm] 5 ml PO Q4HR PRN 06/09/18 [History] Insulin Glargine [Lantus] 20 unit SQ DAILY 06/09/18 [History] Loperamide HCl [Anti-Diarrheal] 2 mg PO DAILY PRN 06/09/18 [History] Nystatin POWDER [Nystop] 1 appl TP TID PRN bottle 06/09/18 [Rx] Omeprazole [PriLOSEC] 20 mg PO DAILY 06/09/18 [History] Oxycodone HCl [Oxaydo] 7.5 mg PO Q4H PRN 06/09/18 [History] Rosuvastatin Calcium [Crestor] 5 mg PO HS 06/09/18 [History] Warfarin [Coumadin] 7.5 mg PO 1800 06/09/18 [History] Allergies/Adverse Reactions: Allergy/AdvReac Type Severity Reaction Status Date / Time albuterol Allergy Difficulty Verified 05/03/18 07:52 Breathing lisinopril Allergy Difficulty Verified 05/03/18 07:52 Breathing Sulfa (Sulfonamide Allergy Difficulty Verified 05/03/18 07:52 Antibiotics) Breathing - Respiratory Orders Smoking Cessation: Smoking cessation has been advised. For more information, call the [place] Tobacco Quit Line at 1-336-JRJLNOW. CERTIFICATION: I certify that the transfer of the above named patient to an Extended Care Facility is necessary for the continuing treatment of the diagnosis listed. The above information is true and accurate reflection of patient's current condition. Confidential - Redisclosure prohibited without a patient's written consent.
[2018-06-09] MEDS: Ipratropium 1 PUFF INHALER IH PRN (16:36)
[2018-06-09] MEDS: Metoprolol XL (24 HR) Succ 50 MG TAB.ER.24H PO SCH (16:45)
[2018-06-09 16:50] VITALS: BP 107/39
--- NOTE | 2018-06-09 17:14 | Nephrology Progress Note ---
Date of Encounter: 06/09/18 Time of Encounter: 12:15 - Assessment and Plan (1) ESRD (end stage renal disease) on dialysis Current Visit: Yes Status: Chronic ESRD on thrice weekly hemodialysis. She will need dialysis today for clearance including for the hyperkalemia, and for fluid removal regarding her edema. I received a message from the infection disease team that her permacath is actually not infected and cultures that were drawn at her outside facility were clearly contaminated. So therefore, there are is no indication to remove the permacath. The patient's outside crew clerk does not provide coverage at [facility], so I am happy to help see this pt while hospitalized. After discharge, she will return to her outside crew clerk at a dialysis unit in the [facility] [place], [place]. Her next tentative dialysis would be planned for Tuesday. Subjective Principal diagnosis: ESRD Interval history: The patient was seen and examined while on hemodialysis. She was sleeping and did not communicate with me during the treatment. Objective - Vital Signs Vital signs: Vital Signs Temp Pulse Resp BP Pulse Ox 06/09/18 16:48 99.2 F 86 16 107/39 99 06/09/18 16:36 20 99 06/09/18 14:55 129/68 06/09/18 14:40 119/56 06/09/18 14:25 106/68 06/09/18 14:10 108/50 06/09/18 13:55 113/52 06/09/18 13:40 116/44 06/09/18 13:25 114/58 06/09/18 13:10 110/44 06/09/18 12:59 76 06/09/18 12:55 129/52 06/09/18 12:40 124/49 06/09/18 12:25 141/59 06/09/18 12:10 151/74 06/09/18 11:55 162/77 06/09/18 11:40 97.3 F L 20 168/78 06/09/18 11:09 99.3 F 75 15 127/36 100 06/09/18 11:04 16 97 06/09/18 08:15 72 100 06/09/18 07:50 16 100 06/09/18 07:15 97.8 F 74 16 118/59 100 06/09/18 04:46 18 118/57 96 06/09/18 03:51 98.9 F 74 18 118/57 96 06/09/18 00:54 16 124/41 100 06/09/18 00:36 98.1 F 70 16 124/41 100 06/08/18 22:14 17 130/54 100 06/08/18 21:00 100 06/08/18 19:41 98.5 F 78 16 130/54 100 Intake and Output 06/09/18 06/09/18 06/09/18 07:59 15:59 23:59 Intake Total 0 / 0 960 / 960 Output Total 0 / 0 0 / 0 Balance 0 / 0 960 / 960 Intake: Oral 0 / 0 360 / 360 Intake, Rinseback and Flushes 600 / 600 Output: Urine 0 / 0 0 / 0 Other: Meal Breakfast Percent of Meal Consumed 100% Weight 166 kg Blood Glucose* 250 268 250 Hemodialysis Net Fluid Removed 3730 (mL) Patient Weight 06/09/18 23:59 Weight 166 kg - General Appearance General appearance: Present: obese, chronically ill EENT: Present: ATNC Respiratory: Present: clear (but limited due to her obese body habitus) Cardiology: Present: edema Dialysis Vascular Access: Venous Catheter (exit site was C/D/I and the cuff was not exposed) Gastrointestinal: Present: obese Integumentary: Present: warm and dry - Lab 06/09/18 06:49 06/09/18 08:49 Most recent lab results Calcium 8.7 mg/dL (8.6-10.3) 06/09/18 08:49 Phosphorus 3.6 mg/dL (2.7-4.5) 06/07/18 18:45 Magnesium 1.7 mg/dL (1.6-2.6) 06/07/18 18:45 Consult Discharge Plan - Plan Referrals: Ender Hodge MD [Primary Care Provider] -
== END 2018-06-09 19:01 ==
LOC: 2NNU 17:48 → EMEROOARM 17:48 → SUATTDRO 06-08 00:16 → 2NNU 06-08 01:17
PROVIDERS: ADMIT Family Medicine; ATTEND Internal Medicine

== ENCOUNTER 2018-09-13 09:57 | Observation (INO) ==
--- NOTE | 2018-09-13 10:45 | Emergency Department Note ---
Disposition Clinical Impression: Hyperkalemia, Displacement of vascular dialysis catheter Disposition: Admitted As Inpatient Condition: Fair Referrals: Ender Hodge MD [Primary Care Provider] - Forms: ED Satisfaction Letter, Work/School Release Time of Disposition: 11:45 General Adult HPI - General Chief complaint: ED General Medical Stated complaint: clogged dialysis port Time Seen by Provider: 09/13/18 10:12 Source: EMS Nursing Notes Reviewed: Yes Vital Signs Reviewed: Yes - History of Present Illness HPI Narrative: Patient presented emergency department with chief complaint of dislodged dialysis catheter. The patient states that she last had dialysis on Tuesday of last week it has now been 5 days she was seen at dialysis on Tuesday, but her dialysis catheter had pulled out so she was sent to the ER, because the inner cuff had pulled out of the skin. Patient states they refused to do dialysis, there was nobody available to replace her line on Tuesday because it was a holiday so she was sent home they did check labs which were unremarkable. Yesterday she was sent for outpatient follow-up, she states that she thought they were supposed to change her line but all they did was mapping for potential fistula formation. She states that she went to dialysis again today they again refused to do her dialysis because of her catheter being backed up and out of the skin to the inner cuff, so they again sent her to the ER. She denies any significant symptoms. She denies chest pain shortness of breath palpitations. She states that she was admitted to have this taken care of because she needs dialysis. Pain Scale: 7 - Related Data Home Medications Medication Instructions Recorded Confirmed Acetaminophen [Tylenol] 650 mg PO Q6HR PRN 05/03/18 06/09/18 B Complex W-C No.20/Folic Acid 1 mg PO DAILY 05/03/18 06/09/18 [Nephrocaps Softgel] Baclofen [Lioresal] 10 mg PO TID PRN 05/03/18 06/09/18 Docusate [Colace] 100 mg PO BID 05/03/18 06/09/18 Gabapentin [Neurontin] 200 mg PO TID 05/03/18 06/09/18 Ipratropium [ATROVENT Inhaler] 2 puff IH Q4H PRN 05/03/18 06/09/18 Lactobacillus [Culturelle] 1 cap PO BID 05/03/18 06/09/18 Lactulose [Enulose] 10 gm PO DAILY 05/03/18 06/09/18 Levothyroxine [Synthroid] 250 mcg PO 0630 05/03/18 06/09/18 Metoprolol XL (24 HR) Succ [Toprol 50 mg PO DAILY 05/03/18 06/09/18 Xl] Nitroglycerin [Nitrostat] 0.4 mg SL Q5MIN PRN MDD MAX DOSES 05/03/18 06/09/18 X3 CALL 911 Sevelamer [Renvela] 800 mg PO TIDWM 05/03/18 06/09/18 Trazodone HCl 100 mg PO HS 05/03/18 06/09/18 Bisacodyl [Dulcolax] 10 mg PO DAILY PRN 06/09/18 06/09/18 Bumetanide [Bumex] 1 mg PO DAILY 06/09/18 06/09/18 Chlorhexidine Rinse 15 ml MM BID 06/09/18 06/09/18 FentaNYL PATCH [Duragesic] 25 mcg TD Q72H 06/09/18 06/09/18 GuaiFENesin/Dextromethorphan 5 ml PO Q4HR PRN 06/09/18 06/09/18 [Robitussin/Dm] Insulin Glargine [Lantus] 20 unit SQ DAILY 06/09/18 06/09/18 Loperamide HCl [Anti-Diarrheal] 2 mg PO DAILY PRN 06/09/18 06/09/18 Omeprazole [PriLOSEC] 20 mg PO DAILY 06/09/18 06/09/18 Oxycodone HCl [Oxaydo] 7.5 mg PO Q4H PRN 06/09/18 06/09/18 Rosuvastatin Calcium [Crestor] 5 mg PO HS 06/09/18 06/09/18 Warfarin [Coumadin] 7.5 mg PO 1800 06/09/18 06/09/18 Previous Rx's Medication Instructions Recorded Nystatin POWDER [Nystop] 1 appl TP TID PRN bottle 06/09/18 Allergies Allergy/AdvReac Type Severity Reaction Status Date / Time albuterol Allergy Difficulty Verified 05/03/18 07:52 Breathing lisinopril Allergy Difficulty Verified 05/03/18 07:52 Breathing Sulfa (Sulfonamide Allergy Difficulty Verified 05/03/18 07:52 Antibiotics) Breathing All systems ED: reviewed and negative except as stated. 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: dysfunctional uterine bleed - Social History Smoking Status: Never smoker Smokeless Tobacco Status: No Alcohol use: Reports: none Drug use: Reports: none Physical Exam Morbidly obese, tracheostomy in place - General General appearance: alert, in no apparent distress - Head Head exam: atraumatic, normocephalic - Eye Eye exam: Present: normal appearance - Expanded Eye Exam Pupils: Left: reactive - ENT ENT exam: normal exam, normal oropharynx - Neck Neck exam: Present: normal inspection, full ROM, other (Tracheostomy in place appears healthy) - Respiratory Respiratory exam: Present: other (Slightly diminished breath sounds of EC bilaterally but no obvious rales rhonchi or crackles, somewhat limited by body habitus) - Cardiovascular Cardiovascular exam: Present: regular rate, normal rhythm, systolic murmur (2/6 systolic murmur no obvious rubs or gallops) - Abdominal Exam Abdominal exam: Present: soft. Absent: Non-Tender - Extremities Exam Extremities exam: Present: other (Normal distal pulses, normal capillary refill, 1-2+ bilateral lower extremity edema, without evidence of superinfection) - Expanded Lower Extremity Exam Neurovascular/Tendon exam: Present: normal capillary refill. Absent: pulse deficit - Neurological Exam Neurological exam: Present: alert, oriented X3, CN II-XII intact - Psychiatric Psychiatric exam: Present: normal affect - Skin Skin exam: Present: warm, dry, intact - Other Other exam information: Right anterior chest wall tunneled dialysis catheter has backed up with the cuff outside of the skin, no bleeding or evidence of infection around this. Course Vital Signs Temperature 97.5 F L 09/13/18 10:03 Pulse Rate 72 09/13/18 10:03 Respiratory Rate 18 09/13/18 10:03 Blood Pressure 116/76 09/13/18 10:03 O2 Sat by Pulse Oximetry 99 09/13/18 10:03 Temperature 97.5 F L 09/13/18 10:03 Pulse Rate 69 09/13/18 11:36 Respiratory Rate 18 09/13/18 10:03 Blood Pressure 107/62 09/13/18 11:36 O2 Sat by Pulse Oximetry 100 09/13/18 11:36 Oxygen Delivery Oxygen Delivery Trach Mask Medical Decision Making - [facility] Narrative Medical decision making narrative: Basic laboratory studies and chest x-ray and EKG were ordered to rule out any evidence of significant fluid overload, or acute hyperkalemia. Patient will require admission to the hospital for line replacement. Chest x-ray showed mild vascular congestion however significant improvement previous. EKG showed normal sinus rhythm no evidence of acute ischemic dysrhythmia hyperkalemia, no peaked T waves, no MN or QRS widening. No other acute abdomen as interpreted by myself. CBC within acceptable limits chronic anemia unchanged. INR is 2.8 on Coumadin. Renal panel creatinine of 7.72 with a potassium of 5.9. Patient is allergic to albuterol she was given IV insulin and IV dextrose I spoke with Dr. Jaffe, with nephrology who states this patient definitely needs to be admitted to the hospital, she would not give any further medications for the hyperkalemia, she can provide consultation. Patient was admitted to the hospitalist I also contacted interventional radiology states they can put in a temporary dialysis catheter for today and change out her line as needed and consult. - Lab Data Result diagrams: 09/13/18 10:44 09/13/18 10:44 Lab Results 09/13/18 09/13/18 09/13/18 Range/Units 10:44 10:44 10:44 WBC 5.9 (4.3-11.1) K/mcL RBC 3.13 L (3.82-4.97) M/mcL Hgb 9.2 L (11.5-15.4) g/dL Hct 31.6 L (35.3-44.9) % MCV 101.0 H (83.0-100.0) fL MCH 29.4 (28.0-33.3) pg MCHC 29.1 L (31.6-35.5) g/dL RDW 16.6 H (11.5-14.5) % Plt Count 191 (140-400) K/mcL MPV 8.4 L (9.4-12.4) fL Immature Gran % 1.3 (0-4) % Seg Neutrophils % 71.1 % Lymphocytes % 18.2 % Monocytes % 5.7 % Eosinophils % 2.5 % Basophils % 1.2 % Neutrophils # 4.2 (1.6-8.9) K/mcL Lymphocytes # 1.1 (0.6-4.6) K/mcL Monocytes # 0.3 (0.0-1.3) K/mcL Eosinophils # 0.2 (0.0-0.6) K/mcL Basophils # 0.1 (0.0-0.2) K/mcL Nucleated RBCs/100 WBC 0.3 H (0) /100 WBC Platelet Estimate Normal (Normal) Polychromasia 1+ A (Not Present) Anisocytosis 1+ A (Not Present) PT 31.9 H (9.4-12.1) Seconds INR 2.8 APTT 53.9 H (26.0-36.0) Seconds Sodium 137 (136-145) mEq/L Potassium 5.9 H (3.5-5.1) mEq/L Chloride 99 (98-107) mEq/L Carbon Dioxide 29 (23-29) mEq/L BUN 65 H (6-20) mg/dL Creatinine 7.72 H (0.60-1.20) mg/dL Est GFR ( Amer) 7 L (> 60) Est GFR (Non-Af Amer) 6 L (> 60) BUN/Creatinine Ratio 8 (6-26) Glucose 147 H (70-105) mg/dL Calculated Osmolality 305 H (280-300) Calcium 8.8 (8.6-10.3) mg/dL
[2018-09-13 10:56] LABS: Basophils % 1.2 %; Hemoglobin 9.2 g/dL (11.5-15.4)
[2018-09-13 10:57] LABS: Basophils # 0.1 K/mcL (0.0-0.2); Eosinophils # 0.2 K/mcL (0.0-0.6); Eosinophils % 2.5 %; Hematocrit 31.6 % (35.3-44.9); Immature Granulocytes % 1.3 % (0-4); Lymphocytes # 1.1 K/mcL (0.6-4.6); Lymphocytes % 18.2 %; Mean Corpuscular HGB Conc 29.1 g/dL (31.6-35.5); Mean Corpuscular Hemoglobin 29.4 pg (28.0-33.3); Mean Platelet Volume 8.4 fL (9.4-12.4); Monocytes # 0.3 K/mcL (0.0-1.3); Monocytes % 5.7 %; Neutrophils # 4.2 K/mcL (1.6-8.9); Nucleated Red Blood Cells 0.3 /100 WBC (0); Platelet Count 191 K/mcL (140-400); Red Blood Count 3.13 M/mcL (3.82-4.97); Red Cell Distribution Width 16.6 % (11.5-14.5); Segmented Neutrophils % 71.1 %
[2018-09-13 11:06] LABS: INR 2.8; Prothrombin Time 31.9 Seconds (9.4-12.1)
[2018-09-13 11:08] LABS: Activated Partial Thrombo Time 53.9 Seconds (26.0-36.0)
[2018-09-13 11:12] LABS: Calcium 8.8 mg/dL (8.6-10.3); Potassium 5.9 mEq/L (3.5-5.1)
[2018-09-13] MEDS ORDERED: Insulin Human Regular 10 UNIT in 0.9 % Sodium Chloride 10 ML IV ONE (11:21)
[2018-09-13] MEDS ORDERED: *HR* Dextrose 50 % in Water (Syg) 50 ML SYRINGE IVP ONE (11:23)
[2018-09-13 11:42] LABS: Anisocytosis 1+ (Not Present); Platelet Estimate Normal (Normal)
[2018-09-13 11:43] LABS: Polychromasia 1+ (Not Present)
[2018-09-13] MEDS ORDERED: Heparin 1,000 UNITS/500 mL 500 ML ONE (13:43)
[2018-09-13] MEDS ORDERED: *HR* Heparin 10,000 UNIT/10 ML VIAL IV PRN ×2 (14:05)
[2018-09-13] MEDS ORDERED: 0.9 % Sodium Chloride 250 ML IVC PRN (14:05)
[2018-09-13] MEDS ORDERED: 0.9 % Sodium Chloride 1,000 ML PRIME SCH (14:15)
--- NOTE | 2018-09-13 14:55 | Internal Med History&Physical ---
Date of Encounter: 09/13/18 Time of Encounter: 09:35 Internal Medicine - H&P: HPI Chief complaint: Exposed found hemodialysis catheter Cuff History of present illness: Ms. Denson is a 52 year old female with a past medical history of dysphagia and disease on hemodialysis Tuesday and past medical history of , GERD, hyperlipidemia, pulmonary embolus, thyroid disease, coronary artery disease, CHF, COPD ,diabetes mellitus, and hyperparathyroidism who presented to the emergency department with exposed, hemodialysis catheter cuff. The patient last hemodialysis session was on Tuesday , she missed her dialysis on Tuesday due to her catheter dislodgment. She stated that she went to dialysis unit today trying to good bowel is however the diffuse to initiate her dialysis to expose cuff, the patient on Coumadin and her INR is above 2, however ER di scussed with IR and they agree to exchange the catheter over guidewire. The patient will get hemodialysis after the catheter exchange, allergy was consulted with providing renal replacement therapy while inpatient. Past Med Surg Social Fam HX - Past Medical History Medical history: diabetes, renal disease, GERD, hyperlipidemia, pulmonary embolus, thyroid disease, coronary artery disease, CHF, COPD Additional medical history: chronic bronchitis, morbid obesity, pneumonia, hyperparathyroidism, anemia, Vit D deficiency, edema, hypopotassemia, sleep apnea Psychiatric history: anxiety, depression - Past Surgical History Surgical History: other Additional surgical history: tracheostomy from respiratory failure , D & C, uterine ablation - Social History Smoking Status: Never smoker Smokeless Tobacco Status: No Alcohol use: none Drug use: none - Family History Mother Living Status: Still Living Hx Family Cardiac Disorders: Yes (Hypertension) Hx Family Endocrine Disorder: Yes (Diabetes) Internal Medicine - H&P: Meds Acetaminophen [Tylenol] 650 mg PO Q6HR PRN 05/03/18 [History] B Complex W-C No.20/Folic Acid [Nephrocaps Softgel] 1 mg PO DAILY 05/03/18 [History] Baclofen [Lioresal] 10 mg PO Q8H PRN 05/03/18 [History] Docusate [Colace] 100 mg PO BID 05/03/18 [History] Gabapentin [Neurontin] 200 mg PO TID 05/03/18 [History] Ipratropium [ATROVENT Inhaler] 2 puff IH Q4H PRN 05/03/18 [History] Lactobacillus [Culturelle] 1 cap PO BID 05/03/18 [History] Lactulose [Enulose] 10 gm PO DAILY 05/03/18 [History] Levothyroxine [Synthroid] 250 mcg PO 0630 05/03/18 [History] Metoprolol XL (24 HR) Succ [Toprol Xl] 50 mg PO DAILY 05/03/18 [History] Nitroglycerin [Nitrostat] 0.4 mg SL Q5MIN PRN MDD MAX DOSES X3 CALL 911 05/03/18 [History] Sevelamer [Renvela] 800 mg PO TIDWM 05/03/18 [History] Trazodone HCl 150 mg PO HS 05/03/18 [History] Bisacodyl [Dulcolax] 10 mg PO DAILY PRN 06/09/18 [History] Bumetanide [Bumex] 1 mg PO DAILY 06/09/18 [History] Chlorhexidine Rinse 15 ml MM BID 06/09/18 [History] FentaNYL PATCH [Duragesic] 25 mcg TD Q72H 06/09/18 [History] GuaiFENesin/Dextromethorphan [Robitussin/Dm] 10 mg PO Q4HR PRN 06/09/18 [History] Insulin Glargine [Lantus] 20 unit SQ DAILY 06/09/18 [History] Loperamide HCl [Anti-Diarrheal] 2 mg PO DAILY PRN 06/09/18 [History] Omeprazole [PriLOSEC] 20 mg PO DAILY 06/09/18 [History] Gentamicin Sulfate 5 drop TP DAILY 09/13/18 [History] Insulin LISPRO [Humalog] 0 - 12 unit SQ QID 09/13/18 [History] Oxycodone HCl 7.5 mg PO Q4H PRN 09/13/18 [History] Soft Lens Surfactant Cleanser [Multi-Purpose Solution] 1 appl TP DAILY 09/13/18 [History] Warfarin Sodium 2.5 mg PO DAILY 09/13/18 [History] Warfarin Sodium 6 mg PO DAILY 09/13/18 [History] Allergy/AdvReac Type Severity Reaction Status Date / Time albuterol Allergy Difficulty Verified 09/13/18 18:14 Breathing lisinopril Allergy Difficulty Verified 09/13/18 18:14 Breathing Sulfa (Sulfonamide Allergy Difficulty Verified 09/13/18 18:14 Antibiotics) Breathing All Systems PM: A 10-system review of systems was performed and is negative for pertinent findings except as documented above in the HPI. - Constitutional Vitals: Temp Pulse Resp BP Pulse Ox 97.5 F L 72 20 134/63 100 09/13/18 10:03 09/13/18 14:03 09/13/18 12:43 09/13/18 14:03 09/13/18 14:03 General appearance: Present: A&O X 3, morbidly obese, no acute distress Exam: As below - Head Head exam: Present: atraumatic, normocephalic - Respiratory Respiratory exam: Present: CTAB. Absent: accessory muscle use, rales, rhonchi, wheezes - Cardiovascular Cardiovascular exam: Present: RRR, +S1, +S2. Absent: diastolic murmur, gallop, rubs, systolic murmur - GI/Abdominal GI/Abdominal exam: Present: normal bowel sounds, soft, no peritoneal signs. Absent: distended, tenderness - Extremities Exam Extremities exam: Present: pedal edema, warm, radial pulses palpable and symmetrical. Absent: calf tenderness, cyanotic Internal Med - H&P Results - Labs CBC & Chem 7: 09/14/18 04:07 09/14/18 04:07 Labs: Short CBC 09/13/18 Range/Units 10:44 WBC 5.9 (4.3-11.1) K/mcL Hgb 9.2 L (11.5-15.4) g/dL Hct 31.6 L (35.3-44.9) % Plt Count 191 (140-400) K/mcL Neutrophils # 4.2 (1.6-8.9) K/mcL BMP 09/13/18 10:44 Sodium 137 Potassium 5.9 H Chloride 99 Carbon Dioxide 29 BUN 65 H Creatinine 7.72 H Glucose 147 H Calcium 8.8 - Impressions ITS Impressions Chest X-Ray 09/13/18 10:28 IMPRESSION: 1. Minimal pulmonary vascular congestion with overall improved aeration of the lungs. D/ / 09/13/2018 10:48:50 Bravo Carmona MD / rachid Interpreting Provider: Bravo Carmona MD - Assessment and Plan (1) Displacement of vascular dialysis catheter Status: Acute Assessment and plan: IR was consulted and the patient is scheduled for hemodialysis catheter exchange over a guidewire. There is no signs of infection of the tunnel, the cuff is exposed, however it is is sealed was fibrous tissue all around Qualifiers: Qualified Code(s): T82.42XA - Displacement of vascular dialysis catheter, initial encounter (2) Hyperkalemia Status: Acute Assessment and plan: The patient was medically, she will be dialyzed after obtaining vascular access. (3) Anemia Status: Acute Assessment and plan: Most likely secondary to anemia of chronic kidney disease, further management as per hemodialysis unit protocol Qualifiers: Anemia type: iron deficiency Iron deficiency anemia type: chronic blood loss Qualified Code(s): D50.0 - Iron deficiency anemia secondary to blood loss (chronic) (4) Anxiety and depression Status: Acute (5) Atrial flutter, chronic Status: Acute (6) Body mass index (BMI) of 40.0-44.9 in adult Status: Acute (7) COPD (chronic obstructive pulmonary disease) Status: Acute Qualifiers: COPD type: emphysema Emphysema type: other Qualified Code(s): J43.8 - Other emphysema (8) History of pulmonary embolus (PE) Status: Acute Assessment and plan: On chronic anticoagulation with warfarin (9) Chronic respiratory failure Status: Acute Qualifiers: Respiratory failure complication: hypoxia and hypercapnia Qualified Code(s): J96.11 - Chronic respiratory failure with hypoxia; J96.12 - Chronic respiratory failure with hypercapnia (10) End stage chronic kidney disease Status: Acute Assessment and plan: Nephrology consulted to assist with providing SAFETY ANALYST needs (11) Hypothyroidism Status: Chronic Assessment and plan: We will cont home thyroxin Qualifiers: Hypothyroidism type: acquired Qualified Code(s): E03.9 - Hypothyroidism, unspecified (12) GERD (gastroesophageal reflux disease) Status: Chronic Qualifiers: Esophagitis presence: esophagitis presence not specified Qualified Code(s): K21.9 - Gastro-esophageal reflux disease without esophagitis (13) DVT prophylaxis Status: Acute - Time Spent With Patient Total time spent is greater than 50% in coordination of care (as documented) at patient's floor/unit and/or counseling patient:
[2018-09-13] MEDS ORDERED: *HR* Heparin 5,000 UNIT/ML VIAL ONE (15:04)
[2018-09-13] MEDS ORDERED: Baclofen 10 MG TABLET PO PRN (15:18)
[2018-09-13] MEDS ORDERED: Acetaminophen 325 MG TABLET PO PRN (15:18)
[2018-09-13] MEDS ORDERED: Nitroglycerin 0.4 MG TAB.SUBL SL PRN (15:18)
[2018-09-13] MEDS ORDERED: Ipratropium 1 PUFF INHALER IH PRN (15:18)
--- NOTE | 2018-09-13 15:20 | IR Procedure Note ---
Date of procedure: 09/13/18 Consent Obtained: Written consent Timeout: Correct patient and procedure verified, Correct site verified, Time out performed, Skin prep completed Local anesthetic: Lidocaine 1% Was there an baking assistant present: No Results/Findings: Cuff exposed Estimated blood loss (cc): 1 Complications: None; Tolerated procedure well Indications: On hemodialysis, tunneled HD catheter cuff exposed. Cath replacement requested. Procedure Performed: Tunneled HD catheter exchange over a wire. Site/Technique: RIJV access. Current cath appears short given it was withdrawn. Same size catheter used, with the new one advanced into the right atrium. Results/Findings (any specimens removed): Working well. Ok to use. Post Procedure Treatment Plan: Monitoring in pts room. Specimen: na
[2018-09-13] MEDS ORDERED: *HR* FentaNYL PATCH 25 MCG PATCH TD SCH (15:30)
[2018-09-13] MEDS ORDERED: *HR* Dextrose 50 % in Water (Syg) 50 ML SYRINGE IVP PRN (15:45)
[2018-09-13] MEDS ORDERED: Dextrose Gel 15 GM/37.5 ML TUBE PO PRN ×2 (15:45)
[2018-09-13] MEDS ORDERED: D5% in Water 1,000 ML IVC PRN (15:45)
[2018-09-13] MEDS ORDERED: Naloxone 0.4 MG/ML INJ IVP PRN (15:54)
[2018-09-13] MEDS ORDERED: Ondansetron 4 MG/2 ML VIAL IVP PRN (16:07)
[2018-09-13 16:48] LABS: Estimated Average Glucose 100 mg/dl; Hemoglobin A1C 5.1 %
[2018-09-13] MEDS: *HR* OxyCODONE Immed Rel 5 MG TABLET PO PRN ×2 (18:21→22:47)
[2018-09-13] MEDS: Insulin LISPRO 300 UNITS/3 ML VIAL SQ SCH (18:22)
[2018-09-13 18:46] LABS: Hepatitis B Surface Antigen Nonreactive (Nonreactive)
[2018-09-13] MEDS ORDERED: 0.9 % Sodium Chloride 1,000 ML ONE (19:42)
[2018-09-13 20:41] LABS: Hepatitis B Surface Antibody 8.77 mIU/mL
[2018-09-13] MEDS ORDERED: Insulin LISPRO 300 UNITS/3 ML VIAL SQ SCH (21:00)
[2018-09-13] MEDS ORDERED: traZODone 50 MG TABLET PO SCH (21:00)
[2018-09-13] MEDS: Chlorhexidine Rinse 15 ML MOUTHWASH MM SCH (22:46)
[2018-09-13] MEDS: Gabapentin 100 MG CAPSULE PO SCH (22:46)
[2018-09-13] MEDS: Lactobacillus 1 EACH CAP.SPRINK PO SCH (22:46)
--- NOTE | 2018-09-13 23:56 | Electrocardiograph Report ---
[address] [address] Test Date: 2018-09-13 Pat Name: Diana Denson Department: [id number] Room: 2N06 Gender: F Marketing Underwriter: : 1965 Requested By: Scott Short Order Number: [id number] Reading MD: Kuldeep Ramon Measurements Intervals [place] Rate: 69 P: -9 ND: 177 QRS: 2 QRSD: 96 T: 36 QT: 393 QTc: 421 Interpretive Statements Sinus rhythm Low voltage, precordial leads Poor R wave progression Electronically Signed On 09-13-2018 23:54:50 EDT by Kuldeep Ramon
[2018-09-14 05:00] LABS: Basophils # 0.1 K/mcL (0.0-0.2); Basophils % 1.2 %; Eosinophils # 0.1 K/mcL (0.0-0.6); Eosinophils % 1.9 %; Hemoglobin 8.7 g/dL (11.5-15.4); Immature Granulocytes % 0.8 % (0-4); Lymphocytes # 1.2 K/mcL (0.6-4.6); Lymphocytes % 23.1 %; Mean Corpuscular Hemoglobin 29.1 pg (28.0-33.3); Mean Corpuscular Volume 100.3 fL (83.0-100.0); Mean Platelet Volume 8.7 fL (9.4-12.4); Monocytes # 0.3 K/mcL (0.0-1.3); Monocytes % 6.6 %; Neutrophils # 3.5 K/mcL (1.6-8.9); Platelet Count 202 K/mcL (140-400); Red Blood Count 2.99 M/mcL (3.82-4.97); Red Cell Distribution Width 16.6 % (11.5-14.5); Segmented Neutrophils % 66.4 %
[2018-09-14 05:06] LABS: INR 3.2; Prothrombin Time 36.1 Seconds (9.4-12.1)
[2018-09-14 05:09] LABS: Activated Partial Thrombo Time 53.7 Seconds (26.0-36.0)
[2018-09-14 05:19] LABS: Albumin 3.3 g/dL (3.5-5.7); Albumin/Globulin Ratio 1.1 (1.1-2.2); Bilirubin,Total 0.4 mg/dL (0.3-1.0); Calcium 8.6 mg/dL (8.6-10.3); Chol/HDL Ratio 6.3 (0-4.9); Globulin 3.1 g/dL (2.4-3.5); Magnesium 1.9 mg/dL (1.6-2.6); Phosphorous 4.8 mg/dL (2.7-4.5); Potassium 5.1 mEq/L (3.5-5.1); Total Protein 6.4 g/dL (6.4-8.9)
[2018-09-14] MEDS: *HR* OxyCODONE Immed Rel 5 MG TABLET PO PRN ×2 (05:58→12:37)
[2018-09-14] MEDS ORDERED: Metoprolol XL (24 HR) Succ 50 MG TAB.ER.24H PO SCH (09:00)
[2018-09-14] MEDS ORDERED: Lactulose Oral Soln 20 GM/30 ML UDC PO SCH (09:00)
[2018-09-14] MEDS ORDERED: Bumetanide 1 MG TABLET PO SCH (09:00)
[2018-09-14] MEDS ORDERED: GENTAMICIN SULFATE TP SCH (09:00)
[2018-09-14] MEDS ORDERED: Renal Vitamin 1 CAP CAPSULE PO SCH (09:00)
[2018-09-14] MEDS: Insulin LISPRO 300 UNITS/3 ML VIAL SQ SCH ×2 (09:07→12:54)
[2018-09-14] MEDS: Gabapentin 100 MG CAPSULE PO SCH (09:09)
[2018-09-14] MEDS: Lactobacillus 1 EACH CAP.SPRINK PO SCH (09:09)
[2018-09-14] MEDS: Chlorhexidine Rinse 15 ML MOUTHWASH MM SCH (09:10)
--- NOTE | 2018-09-14 12:02 | Nephrology Consult Note ---
Date of Encounter: 09/13/18 Time of Encounter: 17:00 Assessment and Plan (1) Displacement of vascular dialysis catheter Current Visit: Yes Status: Acute s/p replacement by IR over guidewire Qualifiers: Qualified Code(s): T82.42XA - Displacement of vascular dialysis catheter, initial encounter (2) Hyperkalemia Current Visit: Yes Status: Acute Potassium noted at 5.9, should improve with dialysis Renal diet advised (3) End stage chronic kidney disease Current Visit: No Status: Acute Continue HD with UF as tolerated Lytes WNL except for hyperkalemia (4) Anemia Current Visit: No Status: Acute Hgb noted at 8.7, will monitor Qualifiers: Anemia type: iron deficiency Iron deficiency anemia type: chronic blood loss Qualified Code(s): D50.0 - Iron deficiency anemia secondary to blood loss (chronic) History of Present Illness - Reason for Consult Consult date: 09/13/18 end stage renal disease Requesting physician: Jennifer Acevedo - History of Present Illness 52 y o female with PMH of morbid obesity, DM, HTN, chronic resp failure with trach, CAD, PE on coumadin and ESRD on HD [facility] at [facility] admitted after missing dialysis on tuesday due to exposed cuff on her permcath. She had her permcath changed by IR over guidewire. Pt seen and examined on HD doing well. She reports an over 100lbs of weight loss since I last saw her during hospital stay. She denies any chest pain, SOB, N/V. Past Med Surg Social Fam HX - Past Medical History Medical history: diabetes, renal disease, GERD, hyperlipidemia, pulmonary embolus, thyroid disease, coronary artery disease, CHF, COPD Additional medical history: chronic bronchitis, morbid obesity, pneumonia, hyperparathyroidism, anemia, Vit D deficiency, edema, hypopotassemia, sleep apnea Psychiatric history: anxiety, depression - Past Surgical History Surgical History: other Additional surgical history: tracheostomy from respiratory failure , D & C, uterine ablation - Social History Smoking Status: Never smoker Smokeless Tobacco Status: No Alcohol use: none Drug use: none - Family History Mother Living Status: Still Living Hx Family Cardiac Disorders: Yes (Hypertension) Hx Family Endocrine Disorder: Yes (Diabetes) Medications and Allergies Acetaminophen [Tylenol] 650 mg PO Q6HR PRN 05/03/18 [History] B Complex W-C No.20/Folic Acid [Nephrocaps Softgel] 1 mg PO DAILY 05/03/18 [History] Baclofen [Lioresal] 10 mg PO Q8H PRN 05/03/18 [History] Docusate [Colace] 100 mg PO BID 05/03/18 [History] Gabapentin [Neurontin] 200 mg PO TID 05/03/18 [History] Ipratropium [ATROVENT Inhaler] 2 puff IH Q4H PRN 05/03/18 [History] Lactobacillus [Culturelle] 1 cap PO BID 05/03/18 [History] Lactulose [Enulose] 10 gm PO DAILY 05/03/18 [History] Levothyroxine [Synthroid] 250 mcg PO 0630 05/03/18 [History] Metoprolol XL (24 HR) Succ [Toprol Xl] 50 mg PO DAILY 05/03/18 [History] Nitroglycerin [Nitrostat] 0.4 mg SL Q5MIN PRN MDD MAX DOSES X3 CALL 911 05/03/18 [History] Sevelamer [Renvela] 800 mg PO TIDWM 05/03/18 [History] Trazodone HCl 150 mg PO HS 05/03/18 [History] Bisacodyl [Dulcolax] 10 mg PO DAILY PRN 06/09/18 [History] Bumetanide [Bumex] 1 mg PO DAILY 06/09/18 [History] Chlorhexidine Rinse 15 ml MM BID 06/09/18 [History] FentaNYL PATCH [Duragesic] 25 mcg TD Q72H 06/09/18 [History] GuaiFENesin/Dextromethorphan [Robitussin/Dm] 10 mg PO Q4HR PRN 06/09/18 [History] Insulin Glargine [Lantus] 20 unit SQ DAILY 06/09/18 [History] Loperamide HCl [Anti-Diarrheal] 2 mg PO DAILY PRN 06/09/18 [History] Omeprazole [PriLOSEC] 20 mg PO DAILY 06/09/18 [History] Gentamicin Sulfate 5 drop TP DAILY 09/13/18 [History] Insulin LISPRO [Humalog] 0 - 12 unit SQ QID 09/13/18 [History] Oxycodone HCl 7.5 mg PO Q4H PRN 09/13/18 [History] Soft Lens Surfactant Cleanser [Multi-Purpose Solution] 1 appl TP DAILY 09/13/18 [History] Warfarin Sodium 2.5 mg PO DAILY 09/13/18 [History] Warfarin Sodium 6 mg PO DAILY 09/13/18 [History] Allergy/AdvReac Type Severity Reaction Status Date / Time albuterol Allergy Difficulty Verified 09/13/18 18:14 Breathing lisinopril Allergy Difficulty Verified 09/13/18 18:14 Breathing Sulfa (Sulfonamide Allergy Difficulty Verified 09/13/18 18:14 Antibiotics) Breathing Review of Systems Constitutional: fatigue (denies) Cardiovascular: chest pain (denies), leg edema (denies) Respiratory: dyspnea (denies) Exam - Vital Signs Vital signs: Initial Vital Signs Temp Pulse Resp BP Pulse Ox 97.5 F L 72 18 116/76 99 09/13/18 10:03 09/13/18 10:03 09/13/18 10:03 09/13/18 10:03 09/13/18 10:03 Vital Signs - Last 8 Hours Temp Pulse Resp BP Pulse Ox 09/14/18 11:38 98.9 F 69 14 91/60 99 09/14/18 10:29 25 97 09/14/18 09:15 70 18 98 09/14/18 07:42 99.1 F 65 18 98/64 96 09/14/18 05:13 14 117/55 95 09/14/18 05:10 99.8 F H 74 18 117/55 97 Intake and Output 09/13/18 09/14/18 09/14/18 23:59 07:59 15:59 Intake Total 600 / 610.1 120 / 120 Output Total 4600 / 4600 Balance -4000 / -3989.9 120 / 120 Intake: Oral 0 / 0 120 / 120 Intake, Rinseback and Flushes 600 / 600 Output: Urine 0 / 0 Total Dialysis (HD) Output 4600 / 4600 Other: Meal Breakfast Percent of Meal Consumed 100% Blood Glucose* 159 171 162 Hemodialysis Net Fluid Removed 4000 (mL) - General Appearance General appearance: well-developed, well-nourished, obese EENT: ATNC, mucous membranes moist Neck: no JVD, supple Respiratory: clear (ant bilat) Cardiology: edema, normal S1, normal S2 - Dialysis Access Dialysis Vascular Access: Venous Catheter (permcath) Gastrointestinal: no tenderness, no guarding, obese Integumentary: warm and dry Neurologic: no focal deficit Musculoskeletal: no deformities Psychiatric: mood/affect appropriate, cooperative Results - Lab Results 09/14/18 04:07 09/14/18 04:07 Most recent lab results 09/14/18 04:07 Calcium 8.6 Phosphorus 4.8 H Magnesium 1.9 Consult Discharge Plan - Plan Referrals: Ender Hodge MD [Primary Care Provider] -
--- NOTE | 2018-09-14 12:08 | Discharge Summary ---
Orders not resulted at time of discharge: Pending orders 09/15/18 04:00 Prothrombin Time INR [COAG] AM 0400 Date of Encounter: 09/14/18 Time of Encounter: 12:04 - Discharge Diagnosis (1) Anemia Priority: Secondary Status: Acute Qualifiers: Qualified Code(s): D50.0 - Iron deficiency anemia secondary to blood loss (chronic) (2) GERD (gastroesophageal reflux disease) Priority: Secondary Status: Chronic Qualifiers: Qualified Code(s): K21.9 - Gastro-esophageal reflux disease without esophagit is (3) Anxiety and depression Priority: Secondary Status: Acute (4) COPD (chronic obstructive pulmonary disease) Priority: Secondary Status: Acute Qualifiers: Qualified Code(s): J43.8 - Other emphysema (5) Atrial flutter, chronic Priority: Secondary Status: Acute (6) End stage chronic kidney disease Priority: Primary Status: Acute (7) Chronic respiratory failure Priority: Secondary Status: Acute Qualifiers: Qualified Code(s): J96.11 - Chronic respiratory failure with hypoxia; J96.12 - Chronic respiratory failure with hypercapnia (8) Hypothyroidism Priority: Secondary Status: Chronic Qualifiers: Qualified Code(s): E03.9 - Hypothyroidism, unspecified (9) History of pulmonary embolus (PE) Priority: Secondary Status: Acute (10) Body mass index (BMI) of 40.0-44.9 in adult Priority: Secondary Status: Acute (11) Hyperkalemia Priority: Secondary Status: Acute (12) Displacement of vascular dialysis catheter Priority: Primary Status: Acute Qualifiers: Qualified Code(s): T82.42XA - Displacement of vascular dialysis catheter, initial encounter Hospital course: Ms. Denson is a 52 year old female PMH diabetes, renal disease, GERD, hyperl ipidemia, pulmonary embolus, thyroid disease, coronary artery disease, CHF, COPD. Who presented to the emergency department with exposed, hemodialysis catheter cuff. The patient last hemodialysis session was on Tuesday, she missed her dialysis on Tuesday due to her catheter dislodgment. IR and nephrology were consulted. IR exchanged the hemodyalsis catheter over a guide wire. Patient received renal replacement therapy yesterday. I discussed with nephrology discharge planning and they agreed on discharging the patient and to continue HD as outpatient as scheduled. Patient is hemodynamically stable to be discharged. - Time Spent with Patient Total time spent providing and/or coordinating discharge services: Time spent: Greater than 30 minutes (35) - Discharge Medications Prescriptions: Continued Metoprolol XL (24 HR) Succ [Toprol Xl] 50 mg PO DAILY Sevelamer [Renvela] 800 mg PO TIDWM Nitroglycerin [Nitrostat] 0.4 mg SL Q5MIN PRN MDD MAX DOSES X3 CALL 911 PRN Reason: Chest Pain B Complex W-C No.20/Folic Acid [Nephrocaps Softgel] 1 mg PO DAILY Acetaminophen [Tylenol] 650 mg PO Q6HR PRN PRN Reason: Mild Pain Levothyroxine [Synthroid] 250 mcg PO 0630 Lactulose [Enulose] 10 gm PO DAILY Lactobacillus [Culturelle] 1 cap PO BID Gabapentin [Neurontin] 200 mg PO TID Docusate [Colace] 100 mg PO BID Baclofen [Lioresal] 10 mg PO Q8H PRN PRN Reason: Muscle Spasm Ipratropium [ATROVENT Inhaler] 2 puff IH Q4H PRN PRN Reason: Shortness Of Breath Trazodone HCl 150 mg PO HS GuaiFENesin/Dextromethorphan [Robitussin/Dm] 10 mg PO Q4HR PRN PRN Reason: Cough Omeprazole [PriLOSEC] 20 mg PO DAILY Loperamide HCl [Anti-Diarrheal] 2 mg PO DAILY PRN PRN Reason: Loose Stool Insulin Glargine [Lantus] 20 unit SQ DAILY FentaNYL PATCH [Duragesic] 25 mcg TD Q72H Chlorhexidine Rinse 15 ml MM BID Bumetanide [Bumex] 1 mg PO DAILY Bisacodyl [Dulcolax] 10 mg PO DAILY PRN PRN Reason: Constipation Insulin LISPRO [Humalog] 0 - 12 unit SQ QID Gentamicin Sulfate 5 drop TP DAILY Oxycodone HCl 7.5 mg PO Q4H PRN PRN Reason: Pain Soft Lens Surfactant Cleanser [Multi-Purpose Solution] 1 appl TP DAILY Warfarin Sodium 6 mg PO DAILY Warfarin Sodium 2.5 mg PO DAILY Home Medications: Acetaminophen [Tylenol] 650 mg PO Q6HR PRN 05/03/18 [History] B Complex W-C No.20/Folic Acid [Nephrocaps Softgel] 1 mg PO DAILY 05/03/18 [History] Baclofen [Lioresal] 10 mg PO Q8H PRN 05/03/18 [History] Docusate [Colace] 100 mg PO BID 05/03/18 [History] Gabapentin [Neurontin] 200 mg PO TID 05/03/18 [History] Ipratropium [ATROVENT Inhaler] 2 puff IH Q4H PRN 05/03/18 [History] Lactobacillus [Culturelle] 1 cap PO BID 05/03/18 [History] Lactulose [Enulose] 10 gm PO DAILY 05/03/18 [History] Levothyroxine [Synthroid] 250 mcg PO 0630 05/03/18 [History] Metoprolol XL (24 HR) Succ [Toprol Xl] 50 mg PO DAILY 05/03/18 [History] Nitroglycerin [Nitrostat] 0.4 mg SL Q5MIN PRN MDD MAX DOSES X3 CALL 911 05/03/18 [History] Sevelamer [Renvela] 800 mg PO TIDWM 05/03/18 [History] Trazodone HCl 150 mg PO HS 05/03/18 [History] Bisacodyl [Dulcolax] 10 mg PO DAILY PRN 06/09/18 [History] Bumetanide [Bumex] 1 mg PO DAILY 06/09/18 [History] Chlorhexidine Rinse 15 ml MM BID 06/09/18 [History] FentaNYL PATCH [Duragesic] 25 mcg TD Q72H 06/09/18 [History] GuaiFENesin/Dextromethorphan [Robitussin/Dm] 10 mg PO Q4HR PRN 06/09/18 [History] Insulin Glargine [Lantus] 20 unit SQ DAILY 06/09/18 [History] Loperamide HCl [Anti-Diarrheal] 2 mg PO DAILY PRN 06/09/18 [History] Omeprazole [PriLOSEC] 20 mg PO DAILY 06/09/18 [History] Gentamicin Sulfate 5 drop TP DAILY 09/13/18 [History] Insulin LISPRO [Humalog] 0 - 12 unit SQ QID 09/13/18 [History] Oxycodone HCl 7.5 mg PO Q4H PRN 09/13/18 [History] Soft Lens Surfactant Cleanser [Multi-Purpose Solution] 1 appl TP DAILY 09/13/18 [History] Warfarin Sodium 2.5 mg PO DAILY 09/13/18 [History] Warfarin Sodium 6 mg PO DAILY 09/13/18 [History] Allergies/Adverse Reactions: Allergy/AdvReac Type Severity Reaction Status Date / Time albuterol Allergy Difficulty Verified 09/13/18 18:14 Breathing lisinopril Allergy Difficulty Verified 09/13/18 18:14 Breathing Sulfa (Sulfonamide Allergy Difficulty Verified 09/13/18 18:14 Antibiotics) Breathing Date of admission: 09/13/18 14:51 Primary care physician: Ender Hodge MD Consults: 09/13/18 11:43 Consult to Interventional Radiology [CONS] Stat Consulting Provider: Radiology Interventional Cols Reason for Consult: needs temp dialysis line Call Completed: Yes 09/13/18 14:15 Consult to Dialysis [CONS] ONCE 09/14/18 12:03 Consult to Nephrology [CONS] Routine Consulting Provider: [facility] [place]/[facility]OBERT/GAIL/SHANTA Reason for Consult: ESRD Call Completed: Yes - Constitutional Vitals: Temp Pulse Resp BP Pulse Ox 98.9 F 69 14 91/60 99 09/14/18 11:38 09/14/18 11:38 09/14/18 11:38 09/14/18 11:38 09/14/18 11:38 General appearance: Present: A&O X 3, morbidly obese, no acute distress Exam: Vitals: Reviewed General: morbidly obese, Alert and oriented x4. in no distress Skin: RIJ permacath HEENT: EOM, pupils equal, round and reactive. s/p trach Cardiovascular: RRR, normal S1 & S2, no rubs, murmurs or gallops. Lungs: CTA b/l, no wheezes or crackles. Abdomen: Obese, soft, non-tender, no rigidity. Extremities: No edema Neurological: Normal cognition. . Rest of the physical exam is non contributory - Patient Status Disposition: Transfer LTC Condition: Good Functional capacity at discharge: bed bound Overall status at discharge: patient is back to baseline - Discharge Instructions Follow Up With: Ender oHdge MD [Primary Care Provider] - - Diet and Activity Activity: as per physical therapy, wear oxygen at all times Diet: low salt diet
--- NOTE | 2018-09-14 12:19 | Physician Discharge Referral ---
ExtendedCare Referral Info Transfer To: F - Diagnosis (1) Anemia Priority: Secondary Status: Acute (2) GERD (gastroesophageal reflux disease) Priority: Secondary Status: Chronic (3) Anxiety and depression Priority: Secondary Status: Acute (4) COPD (chronic obstructive pulmonary disease) Priority: Secondary Status: Acute (5) Atrial flutter, chronic Priority: Secondary Status: Acute (6) End stage chronic kidney disease Priority: Primary Status: Acute (7) Chronic respiratory failure Priority: Secondary Status: Acute (8) Hypothyroidism Priority: Secondary Status: Chronic (9) History of pulmonary embolus (PE) Priority: Secondary Status: Acute (10) Body mass index (BMI) of 40.0-44.9 in adult Priority: Secondary Status: Acute (11) Hyperkalemia Priority: Primary Status: Acute (12) Displacement of vascular dialysis catheter Priority: Primary Status: Acute - Transfer Medications Home Medications: Acetaminophen [Tylenol] 650 mg PO Q6HR PRN 05/03/18 [History] B Complex W-C No.20/Folic Acid [Nephrocaps Softgel] 1 mg PO DAILY 05/03/18 [History] Baclofen [Lioresal] 10 mg PO Q8H PRN 05/03/18 [History] Docusate [Colace] 100 mg PO BID 05/03/18 [History] Gabapentin [Neurontin] 200 mg PO TID 05/03/18 [History] Ipratropium [ATROVENT Inhaler] 2 puff IH Q4H PRN 05/03/18 [History] Lactobacillus [Culturelle] 1 cap PO BID 05/03/18 [History] Lactulose [Enulose] 10 gm PO DAILY 05/03/18 [History] Levothyroxine [Synthroid] 250 mcg PO 0630 05/03/18 [History] Metoprolol XL (24 HR) Succ [Toprol Xl] 50 mg PO DAILY 05/03/18 [History] Nitroglycerin [Nitrostat] 0.4 mg SL Q5MIN PRN MDD MAX DOSES X3 CALL 911 05/03/18 [History] Sevelamer [Renvela] 800 mg PO TIDWM 05/03/18 [History] Trazodone HCl 150 mg PO HS 05/03/18 [History] Bisacodyl [Dulcolax] 10 mg PO DAILY PRN 06/09/18 [History] Bumetanide [Bumex] 1 mg PO DAILY 06/09/18 [History] Chlorhexidine Rinse 15 ml MM BID 06/09/18 [History] FentaNYL PATCH [Duragesic] 25 mcg TD Q72H 06/09/18 [History] GuaiFENesin/Dextromethorphan [Robitussin/Dm] 10 mg PO Q4HR PRN 06/09/18 [History] Insulin Glargine [Lantus] 20 unit SQ DAILY 06/09/18 [History] Loperamide HCl [Anti-Diarrheal] 2 mg PO DAILY PRN 06/09/18 [History] Omeprazole [PriLOSEC] 20 mg PO DAILY 06/09/18 [History] Gentamicin Sulfate 5 drop TP DAILY 09/13/18 [History] Insulin LISPRO [Humalog] 0 - 12 unit SQ QID 09/13/18 [History] Oxycodone HCl 7.5 mg PO Q4H PRN 09/13/18 [History] Soft Lens Surfactant Cleanser [Multi-Purpose Solution] 1 appl TP DAILY 09/13/18 [History] Warfarin Sodium 2.5 mg PO DAILY 09/13/18 [History] Warfarin Sodium 6 mg PO DAILY 09/13/18 [History] Allergies/Adverse Reactions: Allergy/AdvReac Type Severity Reaction Status Date / Time albuterol Allergy Difficulty Verified 09/13/18 18:14 Breathing lisinopril Allergy Difficulty Verified 09/13/18 18:14 Breathing Sulfa (Sulfonamide Allergy Difficulty Verified 09/13/18 18:14 Antibiotics) Breathing - Respiratory Orders Oxygen / L per min (s/p trach) Smoking Cessation: Smoking cessation has been advised. For more information, call the [place] Tobacco Quit Line at 1-588-DUJB-NOW. - Advance Directives Code Status: Full Code - Mobility Orders Bedrest - Rehabiliation Orders Rehab Potential: Fair Rehab Orders: Evaluation for Physical Therapy, Evaluation for Occupational Therapy - Diet Orders Regular CERTIFICATION: I certify that the transfer of the above named patient to an Extended Care Facility is necessary for the continuing treatment of the diagnosis listed. The above information is true and accurate reflection of patient's current condition. Confidential - Redisclosure prohibited without a patient's written consent.
[2018-09-14 12:43] VITALS: BP 141/66
[2018-09-14] MEDS ORDERED: Warfarin perPT PO SCH (18:00)
== END 2018-09-14 14:41 ==
LOC: 2ANU 09:57 → EMEROOARM 09:57 → 2ANU 15:23 → 2NNU 21:20
PROVIDERS: ADMIT Internal Medicine Nephrology; ATTEND Internal Medicine Nephrology

== ENCOUNTER 2019-04-03 14:16 | Inpatient (IN) ==
[2019-04-03 15:14] LABS: Basophils # 0.1 K/mcL (0.0-0.2); Basophils % 1.6 %; Eosinophils # 0.2 K/mcL (0.0-0.6); Eosinophils % 3.3 %; Hematocrit 34.6 % (35.3-44.9); Hemoglobin 10.5 g/dL (11.5-15.4); Immature Granulocytes % 0.5 % (0-4); Lymphocytes # 1.2 K/mcL (0.6-4.6); Lymphocytes % 16.6 %; Mean Corpuscular HGB Conc 30.3 g/dL (31.6-35.5); Mean Corpuscular Hemoglobin 28.9 pg (28.0-33.3); Mean Corpuscular Volume 95.3 fL (83.0-100.0); Mean Platelet Volume 8.8 fL (9.4-12.4); Monocytes # 0.4 K/mcL (0.0-1.3); Monocytes % 5.9 %; Neutrophils # 5.3 K/mcL (1.6-8.9); Platelet Count 194 K/mcL (140-400); Red Blood Count 3.63 M/mcL (3.82-4.97); Red Cell Distribution Width 17.4 % (11.5-14.5); Segmented Neutrophils % 72.1 %; White Blood Count 7.3 K/mcL (4.3-11.1)
[2019-04-03 15:23] LABS: INR 2.3; Prothrombin Time 26.4 Seconds (9.4-12.1)
[2019-04-03 15:26] LABS: Activated Partial Thrombo Time 44.9 Seconds (26.0-36.0)
[2019-04-03 15:31] LABS: Alanine Aminotransferase 6 Units/L (7-52); Albumin 3.3 g/dL (3.5-5.7); Alkaline Phosphatase 100 Units/L (34-104); Aspartate Amino Transferase 11 Units/L (13-39); BUN/Creatinine Ratio 11 (6-26); Bilirubin,Indirect 0.4 mg/dL (0.0-1.0); Bilirubin,Total 0.4 mg/dL (0.3-1.0); Blood Urea Nitrogen 48 mg/dL (6-20); Calcium 8.8 mg/dL (8.6-10.3); Carbon Dioxide 26 mEq/L (23-29); Chloride 94 mEq/L (98-107); Globulin 3.2 g/dL (2.4-3.5); Glucose 209 mg/dL (70-105); Osmolality,Calculated 297 (280-300); Potassium 6.2 mEq/L (3.5-5.1); Sodium 134 mEq/L (136-145); Total Protein 6.5 g/dL (6.4-8.9); Troponin I < 0.03 ng/mL (< 0.04); eGFR For African Americans 13 (> 60); eGFR For Non-African Americans 10 (> 60)
[2019-04-03] MEDS ORDERED: Calcium Gluconate 1gm/50mL 1 GM/50 ML BAG IVPB PRN (16:11)
[2019-04-03] MEDS ORDERED: Insulin Human Regular 10 UNIT in 0.9 % Sodium Chloride 10 ML IV ONE ×2 (16:12→22:05)
[2019-04-03] MEDS ORDERED: *HR* Dextrose 50 % in Water (Vial) 50 ML VIAL IVP ONE (16:12)
[2019-04-03] MEDS ORDERED: *HR* Dextrose 50 % in Water (Syg) 50 ML SYRINGE IVP ONE ×2 (17:00→22:05)
[2019-04-03 17:28] LABS: Bilirubin,Urine Small (Negative); Blood,Urine Negative (Negative); Clarity,Urine Cloudy (Clear); Color,Urine Dark Yellow (Yellow); Glucose,Urine (UA) Normal (Normal); Ketones,Urine Negative (Negative); Leukocyte Esterase,Urine Moderate (Negative); Nitrite,Urine Negative (Negative); Protein,Urine 30 mg/dL (Neg-Trace); Specific Gravity,Urine 1.021 (1.010-1.025); Urobilinogen,Urine Normal (Normal)
[2019-04-03 17:30] LABS: Bacteria,Urine None Seen per hpf (None-Few); RBC,Urine 0-3 per hpf (0-3); Squamous Epithelial Cell,Urine Many per lpf (None-Few)
[2019-04-03 17:45] LABS: Hyaline Casts,Urine Few per lpf (None-Few)
[2019-04-03 17:48] LABS: Amorphous Sediment,Urine Many per hpf (Few)
[2019-04-03 17:50] LABS: Renal Epithelial Cells,Urine Few per hpf (None-Few)
[2019-04-03] MEDS ORDERED: Piperacillin/Tazobactam 3.375 GM in 0.9 % Sodium Chloride Mini Bag 100 ML IVPB ONE (17:52)
[2019-04-03 18:54] LABS: Calcium 8.8 mg/dL (8.6-10.3)
[2019-04-03] MEDS ORDERED: Isovue-370 500 ML BOTTLE IVP ONE (21:09)
[2019-04-03] MEDS ORDERED: *HR* Dextrose 50 % in Water (Syg) 50 ML SYRINGE IVP PRN (22:18)
[2019-04-03] MEDS ORDERED: Dextrose Gel 15 GM/37.5 ML TUBE PO PRN ×2 (22:18)
[2019-04-03] MEDS: Insulin DETEMIR 100 UNIT/ML X5UNITS SQ SCH (22:43)
[2019-04-03] MEDS: Nystatin POWDER 30 GM BOTTLE TP SCH (23:33)
[2019-04-04] MEDS ORDERED: *HR* Warfarin 3 MG TABLET PO ONE ×2 (00:15→18:00)
[2019-04-04] MEDS ORDERED: Piperacillin/Tazobactam 3.375 GM in 0.9 % Sodium Chloride Mini Bag 100 ML IVPB SCH ×2 (06:00)
[2019-04-04 07:08] LABS: Basophils # 0.1 K/mcL (0.0-0.2); Basophils % 1.5 %; Eosinophils # 0.3 K/mcL (0.0-0.6); Hematocrit 32.8 % (35.3-44.9); Immature Granulocytes % 0.4 % (0-4); Lymphocytes # 1.1 K/mcL (0.6-4.6); Lymphocytes % 15.4 %; Mean Corpuscular HGB Conc 30.5 g/dL (31.6-35.5); Mean Corpuscular Hemoglobin 28.7 pg (28.0-33.3); Mean Platelet Volume 8.7 fL (9.4-12.4); Monocytes # 0.4 K/mcL (0.0-1.3); Monocytes % 6.1 %; Neutrophils # 5.3 K/mcL (1.6-8.9); Platelet Count 196 K/mcL (140-400); Red Blood Count 3.49 M/mcL (3.82-4.97); Red Cell Distribution Width 17.3 % (11.5-14.5); Segmented Neutrophils % 72.6 %; White Blood Count 7.3 K/mcL (4.3-11.1)
[2019-04-04 07:13] LABS: INR 2.3; Prothrombin Time 25.9 Seconds (9.4-12.1)
[2019-04-04 07:29] LABS: Calcium 8.7 mg/dL (8.6-10.3); Magnesium 2.1 mg/dL (1.6-2.6); Phosphorous 5.8 mg/dL (2.7-4.5)
[2019-04-04] MEDS ORDERED: 0.9 % Sodium Chloride 250 ML IVC PRN (07:39)
[2019-04-04] MEDS ORDERED: 0.9 % Sodium Chloride 1,000 ML PRIME SCH (07:45)
[2019-04-04] MEDS: Insulin LISPRO 300 UNITS/3 ML VIAL SQ SCH ×4 (08:15→20:57)
[2019-04-04] MEDS: Nystatin POWDER 30 GM BOTTLE TP SCH ×3 (08:23→20:52)
[2019-04-04 11:36] LABS: Hepatitis B Surface Antibody < 3.10 mIU/mL
[2019-04-04 11:47] LABS: Hepatitis B Surface Antigen Nonreactive (Nonreactive)
[2019-04-04] MEDS: Ammonium Lactate 30 APPL/225 GM BOTTLE TP SCH ×2 (12:41→20:52)
[2019-04-04] MEDS ORDERED: Bisacodyl 10 MG RECTAL SUPPOSITORY RC PRN (15:28)
[2019-04-04] MEDS ORDERED: Colistin (Colistimethate) 300 MG in 0.9 % Sodium Chloride 50 ML IVPB ONE (16:00)
[2019-04-04] MEDS: *HR* OxyCODONE Immed Rel 15 MG TABLET PO PRN (17:58)
[2019-04-04] MEDS ORDERED: Warfarin perPT PO PRN (18:00)
[2019-04-04] MEDS: Insulin DETEMIR 100 UNIT/ML X5UNITS SQ SCH (20:58)
[2019-04-05] MEDS ORDERED: Nitroglycerin 0.4 MG TAB.SUBL SL PRN (08:08)
[2019-04-05] MEDS ORDERED: Baclofen 10 MG TABLET PO PRN (08:08)
[2019-04-05] MEDS ORDERED: *HR* FentaNYL PATCH 25 MCG PATCH TD SCH (08:15)
[2019-04-05] MEDS ORDERED: [UNRECOGNIZED DRUG - OTHER] TP SCH (09:00)
[2019-04-05] MEDS: Insulin LISPRO 300 UNITS/3 ML VIAL SQ SCH ×4 (09:02→22:13)
[2019-04-05 09:21] LABS: Hematocrit 31.9 % (35.3-44.9); Hemoglobin 9.8 g/dL (11.5-15.4); Immature Granulocytes % 0.3 % (0-4); Mean Corpuscular HGB Conc 30.7 g/dL (31.6-35.5); Mean Corpuscular Volume 94.4 fL (83.0-100.0); Mean Platelet Volume 8.9 fL (9.4-12.4); Monocytes % 5.6 %; Platelet Count 180 K/mcL (140-400); Red Blood Count 3.38 M/mcL (3.82-4.97); Red Cell Distribution Width 17.1 % (11.5-14.5); Segmented Neutrophils % 73.4 %; White Blood Count 6.4 K/mcL (4.3-11.1)
[2019-04-05 09:22] LABS: Basophils # 0.1 K/mcL (0.0-0.2); Basophils % 1.7 %; Eosinophils # 0.3 K/mcL (0.0-0.6); Lymphocytes # 0.9 K/mcL (0.6-4.6); Monocytes # 0.4 K/mcL (0.0-1.3); Neutrophils # 4.7 K/mcL (1.6-8.9)
[2019-04-05 09:36] LABS: Calcium 8.4 mg/dL (8.6-10.3); Potassium 5.4 mEq/L (3.5-5.1)
[2019-04-05] MEDS: Chlorhexidine Rinse 15 ML MOUTHWASH MM SCH ×2 (10:18→22:11)
[2019-04-05] MEDS: Bumetanide 1 MG TABLET PO SCH (10:18)
[2019-04-05] MEDS: Lactobacillus 1 EACH CAP.SPRINK PO SCH ×2 (10:18→22:12)
[2019-04-05] MEDS: Gabapentin 400 MG CAPSULE PO SCH ×2 (10:18→17:06)
[2019-04-05] MEDS: Lactulose Oral Soln 20 GM/30 ML UDC PO SCH (10:18)
[2019-04-05] MEDS: Metoprolol XL (24 HR) Succ 50 MG TAB.ER.24H PO SCH (10:18)
[2019-04-05] MEDS: Ammonium Lactate 30 APPL/225 GM BOTTLE TP SCH ×2 (10:19→22:14)
[2019-04-05] MEDS: Nystatin POWDER 30 GM BOTTLE TP SCH ×3 (10:20→22:14)
[2019-04-05] MEDS: Trolamine Salicylate/Aloe Vera 85 APPL/85 GM TUBE TP SCH ×4 (10:24→22:15)
[2019-04-05] MEDS: *HR* OxyCODONE Immed Rel 15 MG TABLET PO PRN ×2 (10:34→22:11)
[2019-04-05] MEDS: Calcium Acetate 667 MG CAPSULE PO SCH ×3 (10:52→22:11)
[2019-04-05 10:55] LABS: INR 2.6; Prothrombin Time 29.5 Seconds (9.4-12.1)
[2019-04-05] MEDS: GuaiFENesin/Dextromethorphan TABLET PO SCH ×2 (12:27→22:12)
[2019-04-05] MEDS ORDERED: Aminoglycoside Consult 1 EACH MC ONE (15:27)
[2019-04-05] MEDS ORDERED: Colistin (Colistimethate) 130 MG in 0.9 % Sodium Chloride 50 ML IVPB SCH (16:00)
[2019-04-05] MEDS ORDERED: *HR* Warfarin 3 MG TABLET PO ONE (18:00)
[2019-04-05] MEDS ORDERED: traZODone 50 MG TABLET PO SCH (21:00)
[2019-04-05] MEDS ORDERED: ALPRAZolam 1 MG TABLET PO SCH (21:00)
[2019-04-05] MEDS: Insulin DETEMIR 100 UNIT/ML X5UNITS SQ SCH (22:12)
[2019-04-06] MEDS: Gabapentin 400 MG CAPSULE PO SCH ×2 (00:32→08:50)
[2019-04-06] MEDS ORDERED: 0.9 % Sodium Chloride 250 ML IVC PRN (06:14)
[2019-04-06] MEDS: Metoprolol XL (24 HR) Succ 50 MG TAB.ER.24H PO SCH (08:49)
[2019-04-06] MEDS: GuaiFENesin/Dextromethorphan TABLET PO SCH (08:49)
[2019-04-06] MEDS: Bumetanide 1 MG TABLET PO SCH (08:49)
[2019-04-06] MEDS: *HR* OxyCODONE Immed Rel 15 MG TABLET PO PRN (08:49)
[2019-04-06] MEDS: Chlorhexidine Rinse 15 ML MOUTHWASH MM SCH (08:50)
[2019-04-06] MEDS: Calcium Acetate 667 MG CAPSULE PO SCH (08:50)
[2019-04-06] MEDS: Lactulose Oral Soln 20 GM/30 ML UDC PO SCH (08:50)
[2019-04-06] MEDS: Lactobacillus 1 EACH CAP.SPRINK PO SCH (08:50)
[2019-04-06] MEDS: Insulin LISPRO 300 UNITS/3 ML VIAL SQ SCH ×2 (08:54→12:29)
[2019-04-06] MEDS: Ammonium Lactate 30 APPL/225 GM BOTTLE TP SCH (08:54)
[2019-04-06] MEDS: Trolamine Salicylate/Aloe Vera 85 APPL/85 GM TUBE TP SCH ×2 (08:54→12:29)
[2019-04-06] MEDS: Nystatin POWDER 30 GM BOTTLE TP SCH (08:55)
[2019-04-06 09:42] LABS: Prothrombin Time 22.2 Seconds (9.4-12.1)
[2019-04-06 09:45] LABS: Hematocrit 30.5 % (35.3-44.9); Hemoglobin 9.7 g/dL (11.5-15.4); Mean Corpuscular HGB Conc 31.8 g/dL (31.6-35.5); Mean Corpuscular Volume 94.4 fL (83.0-100.0); Mean Platelet Volume 9.2 fL (9.4-12.4); Platelet Count 202 K/mcL (140-400); Red Blood Count 3.23 M/mcL (3.82-4.97); Red Cell Distribution Width 16.8 % (11.5-14.5); White Blood Count 6.2 K/mcL (4.3-11.1)
[2019-04-06 09:57] LABS: Calcium 8.7 mg/dL (8.6-10.3)
[2019-04-06] MEDS ORDERED: *HR* Heparin 10,000 UNIT/10 ML VIAL IV PRN (12:00)
[2019-04-06 14:54] VITALS: BP 108/62
[2019-04-06] MEDS ORDERED: *HR* Warfarin 3 MG TABLET PO ONE (18:00)
== END 2019-04-06 15:28 | DRG 314 ==
LOC: 2NNU 14:16 → EMEROOARM 14:16 → SUATTDRO 19:49 → 2NNU 20:40
PROVIDERS: ADMIT Internal Medicine; ATTEND Internal Medicine

== ENCOUNTER 2019-04-12 11:07 | Inpatient (IN) ==
[2019-04-12] MEDS ORDERED: 0.9 % Sodium Chloride 250 ML IVC PRN (14:10)
[2019-04-12] MEDS ORDERED: *HR* Heparin 10,000 UNIT/10 ML VIAL IV PRN ×2 (14:10)
[2019-04-12] MEDS ORDERED: 0.9 % Sodium Chloride 1,000 ML PRIME SCH (14:15)
[2019-04-12] MEDS ORDERED: Naloxone 0.4 MG/ML INJ IVP PRN (14:32)
[2019-04-12] MEDS ORDERED: Ondansetron 4 MG/2 ML VIAL IVP PRN (14:32)
[2019-04-12] MEDS ORDERED: Meropenem 1,000 MG in 0.9 % Sodium Chloride Mini Bag 100 ML IVPB SCH (16:00)
[2019-04-12] MEDS ORDERED: Vancomycin 1 EACH in 0.9 % Sodium Chloride 250 ML IVPB SCH (17:00)
[2019-04-12] MEDS ORDERED: Vancomycin (wt based) 1,000 MG VIAL IVPB SCH (17:00)
[2019-04-12] MEDS ORDERED: Ipratropium 1 PUFF INHALER IH PRN (17:45)
[2019-04-12] MEDS ORDERED: Acetaminophen 325 MG TABLET PO PRN (17:45)
[2019-04-12] MEDS ORDERED: Nitroglycerin 0.4 MG TAB.SUBL SL PRN (17:45)
[2019-04-12] MEDS ORDERED: Baclofen 10 MG TABLET PO PRN (17:45)
[2019-04-12] MEDS ORDERED: *HR* Dextrose 50 % in Water (Syg) 50 ML SYRINGE IVP PRN (17:48)
[2019-04-12] MEDS ORDERED: Dextrose Gel 15 GM/37.5 ML TUBE PO PRN ×2 (17:48)
[2019-04-12] MEDS ORDERED: D5% in Water 1,000 ML IVC PRN (17:48)
[2019-04-12] MEDS ORDERED: Warfarin perPT PO PRN (18:00)
[2019-04-12] MEDS ORDERED: Colistin (Colistimethate) 300 MG in 0.9 % Sodium Chloride 50 ML IVPB ONE (18:00)
[2019-04-12] MEDS ORDERED: *HR* Warfarin 3 MG TABLET PO ONE (19:54)
[2019-04-12] MEDS ORDERED: *HR* FentaNYL PATCH 25 MCG PATCH TD SCH (20:00)
[2019-04-12] MEDS ORDERED: Insulin DETEMIR 100 UNIT/ML X5UNITS SQ SCH (21:00)
[2019-04-12] MEDS: Chlorhexidine Rinse 15 ML MOUTHWASH PO SCH (22:04)
[2019-04-12] MEDS: Lactobacillus 1 EACH CAP.SPRINK PO SCH (22:05)
[2019-04-12] MEDS: traZODone 50 MG TABLET PO SCH (22:06)
[2019-04-13 02:22] LABS: Basophils # 0.1 K/mcL (0.0-0.2); Basophils % 0.8 %; Eosinophils # 0.2 K/mcL (0.0-0.6); Eosinophils % 1.9 %; Hemoglobin 9.6 g/dL (11.5-15.4); Immature Granulocytes % 0.7 % (0-4); Lymphocytes # 0.6 K/mcL (0.6-4.6); Lymphocytes % 5.7 %; Mean Corpuscular Hemoglobin 29.2 pg (28.0-33.3); Mean Corpuscular Volume 97.3 fL (83.0-100.0); Mean Platelet Volume 8.4 fL (9.4-12.4); Monocytes # 0.5 K/mcL (0.0-1.3); Monocytes % 5.1 %; Neutrophils # 8.6 K/mcL (1.6-8.9); Platelet Count 210 K/mcL (140-400); Red Blood Count 3.29 M/mcL (3.82-4.97); Red Cell Distribution Width 16.5 % (11.5-14.5); Segmented Neutrophils % 85.8 %
[2019-04-13 02:23] LABS: INR 2.7; Prothrombin Time 30.2 Seconds (9.4-12.1)
[2019-04-13 02:50] LABS: Calcium 8.4 mg/dL (8.6-10.3); Potassium 5.9 mEq/L (3.5-5.1)
[2019-04-13] MEDS ORDERED: *HR* Heparin 10,000 UNIT/10 ML VIAL IV PRN ×2 (08:11)
[2019-04-13] MEDS ORDERED: 0.9 % Sodium Chloride 250 ML IVC PRN (08:11)
[2019-04-13] MEDS ORDERED: Acetaminophen IV 1,000 MG/100 ML INFUS..BTL IVPB STA (08:14)
[2019-04-13] MEDS: Insulin LISPRO 300 UNITS/3 ML VIAL SQ SCH ×3 (08:56→12:20)
[2019-04-13] MEDS: Calcium Acetate 667 MG CAPSULE PO SCH ×2 (08:56→11:14)
[2019-04-13] MEDS: Chlorhexidine Rinse 15 ML MOUTHWASH PO SCH (08:57)
[2019-04-13] MEDS: Lactobacillus 1 EACH CAP.SPRINK PO SCH (08:57)
[2019-04-13] MEDS ORDERED: Bumetanide 1 MG TABLET PO SCH (09:00)
[2019-04-13] MEDS ORDERED: Lactulose Oral Soln 20 GM/30 ML UDC PO SCH (09:00)
[2019-04-13] MEDS ORDERED: Morphine Sulfate 2 MG/ML SYRINGE IVP ONE (10:19)
[2019-04-13] MEDS ORDERED: *HR* OxyCODONE Immed Rel 5 MG TABLET PO PRN (13:06)
[2019-04-13 14:46] VITALS: BP 136/77
[2019-04-13] MEDS ORDERED: Aminoglycoside Consult 1 EACH MC ONE (15:57)
[2019-04-13] MEDS ORDERED: Colistin (Colistimethate) 130 MG in 0.9 % Sodium Chloride 50 ML IVPB SCH (18:00)
[2019-04-13] MEDS ORDERED: Meropenem 500 MG in 0.9 % Sodium Chloride Mini Bag 100 ML IVPB SCH (18:00)
[2019-04-13] MEDS ORDERED: *HR* Warfarin 3 MG TABLET PO ONE (18:00)
[2019-04-13] MEDS ORDERED: Colistin (Colistimethate) 120 MG in 0.9 % Sodium Chloride 50 ML IVPB SCH (18:00)
[2019-04-17] MEDS ORDERED: Cholecalciferol (D-3) 1,000 UNIT (25MCG) TABLET PO SCH (09:00)
== END 2019-04-13 15:58 | disposition critical access hospital (66) | DRG 871 ==
LOC: 2NNU → SUATTDRO 13:32
PROVIDERS: ADMIT Internal Medicine; ATTEND Internal Medicine